=== PATIENT | female | born 1995 | race Hispanic/Latino ===

== ENCOUNTER 2024-03-23 08:56 | Inpatient (IN) | payer OTHER, MEDICAID, SELFPAY ==
[2024-03-23] VITALS (51 sets, daily range): BP systolic 95–122; BP diastolic 64–83; PULSE 98–135; RESP 12–32; TEMP 36.7–36.8; O2SAT 93–99; BMI 21.1; BMI 22.5
--- NOTE | 2024-03-23 09:33 | DI.RAD.S_ITS ---
PROCEDURE: XR CHEST 1V INDICATIONS: suspected sepsis TECHNIQUE: One view of the chest was acquired. COMPARISON: None. FINDINGS: Surgical changes and devices: None. Lungs and pleura: There is moderate left pleural effusion and left lower lobe atelectasis. No pneumothorax. Right lung is clear. Mediastinum: Mediastinal contours appear normal. Heart size is enlarged. Bones and chest wall: No suspicious bony lesions. Overlying soft tissues appear unremarkable. IMPRESSION: Moderate left pleural effusion and left lower lobe atelectasis. Underlying left lower lobe infiltrate cannot be excluded. Right lung is clear. No pneumothorax. Dictated by: Manish Cancino M.D. on 03/23/2024 at 10:11 Approved by: Manish Cancino M.D. on 03/23/2024 at 10:12
[2024-03-23] MEDS: SODIUM CHLORIDE 0.9% 1,000 ML 1000 ML IV ×2 (09:40→18:03)
--- NOTE | 2024-03-23 09:44 | EKG_ITS ---
[address] [address] Test Date: 2024-03-23 Pat Name: Zena Hawley Department: [facility] Room: Gender: Female Field Contact Person: CAMILLA : 1995 Requested By: Order Number: [id number] Reading MD: Walter Hoffman Measurements Intervals [place] Rate: 133 P: 49 IA: 114 QRS: 6 QRSD: 92 T: 38 QT: 320 QTc: 476 Interpretive Statements Sinus tachycardia Electronically Signed On 03-23-2024 17:58:55 PST by Walter Hoffman
[2024-03-23 10:03] LABS: Add Manual Diff / Slide Review NO; Basophils Absolute Auto 0 /uL (0-100); Basophils Percent Auto 0.8 % (0-2); Eosinophils Absolute Auto 100 /uL (0-450); Eosinophils Percent Auto 1.8 % (2-4); Hematocrit 34.5 % (36-46); Hemoglobin 11.2 g/dL (12.0-16.0); Lymphocytes Absolute Auto 1300 /uL (1100-4500); Lymphocytes Percent Auto 24.6 % (25-40); Mean Corpuscular HGB Conc 32.6 % (30-36); Mean Corpuscular Volume 88.7 fL (80-100); Monocytes Absolute Auto 400 /uL (0-900); Monocytes Percent Auto 7.4 % (3-14); Neutrophils Absolute Auto 3600 /uL (1500-7000); Neutrophils Percent Auto 65.4 % (50-75); Platelet Count 698 X10^3/uL (150-400); Red Blood Cell Count 3.88 X10^6/uL (4.0-5.2); Red Cell Distribution Width 15.1 % (11.6-14.8); White Blood Cell Count 5.4 X10^3/uL (4.5-11.0)
[2024-03-23 10:09] LABS: INR 1.2 (0.9-1.3); Prothrombin Time 13.7 SECONDS (9.4-12.5)
[2024-03-23 10:12] LABS: PTT Partial Thromboplastin Tim 36 SECONDS (25.1-36.5)
[2024-03-23 10:13] LABS: Alanine Aminotransferase 20 IU/L (<35); Albumin Globulin Ratio 0.9 (1.0-2.8); Alkaline Phosphatase 84 U/L (38-126); Aspartate Aminotransferase 31 IU/L (14-36); BUN Creatinine Ratio 10.7 (6-22); Bilirubin Total 0.7 mg/dL (0.2-1.3); Blood Urea Nitrogen 6 mg/dL (7-17); Calcium 9.7 mg/dL (8.4-10.2); Carbon Dioxide 26 mmol/L (22-32); Chloride 105 mmol/L (98-107); Estimated Glomerular Filt Rate > 60 mL/min (>60); Globulin 4.3 g/dL (1.7-4.1); Glucose 97 mg/dL (70-100); HEMOLYSIS 21 (0-50); Lipase 63 U/L (23-300); Potassium 3.9 mmol/L (3.4-5.1); Sodium 138 mmol/L (137-145); Total Protein 8.3 g/dL (6.3-8.2)
[2024-03-23 10:14] LABS: Lactate (Lactic Acid) 0.9 mmol/L (0.7-2.1)
--- NOTE | 2024-03-23 10:18 | ED.ABDPAIN ---
HPI - Abdominal Pain General Chief Complaint: Abdominal Pain Stated Complaint: surgery 02/11 nausea/vomitting, feels heart racing Time Seen by Provider: 03/23/24 10:07 Source: patient Mode of arrival: Ambulatory History of Present Illness HPI narrative: 28-year-old female with recent prolonged hospitalization [facility] for bowel obstruction and TPN antibiotics and multiple abscess drainage procedures, admitted there 02/11/2024, and states that she was hospitalized for 28 days, discharged, recalls having bowel obstruction left-sided, surgical excision, no cancer diagnosis, no colostomy/ostomy, apparently had splenic neck complication, development of abscess, drains that were placed then pulled, ertapenem antibiotic given during her hospital stay, PICC line was in place, antibiotic course was completed, PICC line removed for discharge. Patient seemed to be doing well the last week or so, slight residual left-sided abdominal discomfort, saw her surgeon yesterday for follow up, she was under the impression that further pain medication was to be prescribed, also was requesting antinausea medication. Last night had multiple episodes nonbloody emesis, last bowel movement unremarkable yesterday, no black or red stools. Increasing left-sided abdominal discomfort. Also recent cough, denies shortness of breath, denies chest pain. Denies frequency of urination, denies painful urination. Related Data Home Medications Medication Instructions Recorded Confirmed clonidine HCl 0.1 mg tablet 0.1 mg PO BID 03/23/24 03/23/24 Allergies Allergy/AdvReac Type Severity Reaction Status Date / Time cyclobenzaprine Allergy Verified 03/23/24 09:29 [From Flexeril] promethazine [From Phenergan] Allergy Verified 03/23/24 09:29 Review of Systems Review of Systems Narrative: See HPI Patient History Social History household members: family Smoking Status: Unknown if ever smoked Smoking Status: Unknown if ever smoked alcohol intake frequency: holidays/special occasions only Substance Use Type: does not use Exam Narrative Exam Narrative: GENERAL: Well-developed patient, in mild distress. HEAD: Atraumatic. Normocephalic. EYES: Pupils equal round and reactive. Extraocular motions intact. No scleral icterus. No injection or drainage. ENT: Nose without bleeding, purulent drainage. Throat without erythema, tonsillar hypertrophy or exudate. Airway patent. NECK: Trachea midline. Non tender CARDIOVASCULAR: Fast rate regular rhythm, no obvious murmurs or gallops or rubs. RESPIRATORY: Clear to auscultation. Breath sounds equal bilaterally. No wheezes, rales, or rhonchi. GASTROINTESTINAL: Abdomen soft nondistended, bowel tones unremarkable, Steri-Strips applied vertical low midline incision, also noted old appearing right upper quadrant and left upper quadrant abdominal linear laceration scars that per patient report were self-inflicted a long time ago. No skin erythema, redness. No guarding or rebound tenderness. EXTREMITIES: No edema or joint tenderness. BACK: Nontender without deformity or crepitance. No flank tenderness. NEURO: AOx3. Motor functions grossly nonfocal SKIN: No rash or erythema of visible areas Initial Vital Signs Initial Vital Signs: Vital Signs Temperature 98.0 F 03/23/24 09:24 Pulse Rate 122 H 03/23/24 09:24 Respiratory Rate 16 03/23/24 09:24 Blood Pressure 97/64 03/23/24 09:24 Pulse Oximetry 96 03/23/24 09:24 Oxygen Delivery Method Room Air 03/23/24 09:24 Procedures [facility] Procedure Name of Procedure: Left chest thoracentesis, diagnostic Side (if applicable): left Location: Left posterior chest, procedure site marked with X by engineering technician Time out performed: Yes Technique/Description of procedure performed: Local anesthetic after Betadine scrub, local 1% lidocaine 5 cc injected subcutaneously and then down to rib edge and then of over rib edge that was marked previously by ultrasound imaging. Injected further at that site. Thoracentesis catheter over wire then introduced, advanced to proximally 5 cc, with aspiration of yellow fluid, needle taken out, further aspiration 60 cc syringe, sent for studies. Attempted to place stopcock for gravity drainage but the stopcock did not seem to go onto the device. Further aspirated further via additional 60 cc syringes, total volume a proximally 150 cc. Postprocedure chest x-ray without pneumothorax. Tolerated well. Specimen sent for lab studies. Course Orders Ordered: ED Orders 03/23/24 10:22 CT angio chest PE protocol Stat 03/23/24 10:23 CT abdomen pelvis w con Stat 03/23/24 10:42 Urine Culture Stat Urine Microscopic Stat 03/23/24 11:33 US chest Stat 03/23/24 13:12 Respiratory Panel (Film Array) Stat 03/23/24 16:04 Body Fluid Culture Stat Cell Count w Diff Body Fluid Stat 03/23/24 16:05 Miscellaneous to [facility] Stat 03/23/24 16:10 XR chest 1V Stat Acetaminophen (Acetaminophen 325 Mg Tablet) 650 mg PO Q6H PRN PRN Reason: Fever/Mild Pain (1-3) Hydromorphone HCl (Hydromorphone 0.5 Mg Inj) 0.5 mg IV Q2H PRN PRN Reason: Pain, Severe (7-10) Sodium Chloride (Normal Saline 0.9%) 1,000 mls @ 100 mls/hr IV CONT CRISTI Naloxone HCl (Naloxone 0.4 Mg/Ml Vial) 0.2 mg IV Q2MIN PRN PRN Reason: Opiate Reversal Ondansetron HCl (Ondansetron 4 Mg Odt) 4 mg SL NOW PRN PRN Reason: Nausea And Vomiting Ondansetron HCl (Ondansetron 4 Mg/2 Ml Inj) 4 mg IV Q8HR PRN PRN Reason: Nausea And Vomiting Oxycodone HCl (Oxycodone Ir 5 Mg Tablet) 5 mg PO Q3H PRN PRN Reason: Pain, Moderate (4-6) Sodium Chloride (Sodium Chloride 0.9% Flush) 10 ml IV PRN PRN PRN Reason: Flush Sodium Chloride (Sodium Chloride 0.9% Flush) 10 ml IV BID CRISTI Discontinued Medications Azithromycin (Azithromycin 250 Mg Tablet) 500 mg PO NOW ONE Stop: 03/23/24 10:21 Last Admin: 03/23/24 11:49 Dose: Not Given Documented By: HEMA Doxycycline Hyclate (Doxycycline Hyclate 100 Mg Tablet) 100 mg PO NOW ONE Stop: 03/23/24 10:22 Last Admin: 03/23/24 10:30 Dose: 100 mg Documented By: HEMA Hydromorphone HCl (Hydromorphone 0.5 Mg Inj) 0.5 mg IV NOW ONE Stop: 03/23/24 11:11 Last Admin: 03/23/24 11:40 Dose: 0.5 mg Documented By: HEMA Hydromorphone HCl (Hydromorphone 0.5 Mg Inj) 0.5 mg IV NOW ONE Stop: 03/23/24 12:18 Last Admin: 03/23/24 12:51 Dose: 0.5 mg Documented By: HEMA Hydromorphone HCl (Hydromorphone 0.5 Mg Inj) 0.5 mg IV NOW ONE Stop: 03/23/24 15:12 Last Admin: 03/23/24 15:16 Dose: 0.5 mg Documented By: HEMA Hydromorphone HCl (Hydromorphone 0.5 Mg Inj) 0.5 mg IV NOW ONE Stop: 03/23/24 17:10 Last Admin: 03/23/24 17:16 Dose: 0.5 mg Documented By: HEMA Sodium Chloride (Normal Saline 0.9%) 1,000 mls @ 1,000 mls/hr IV BOLUS ONE Stop: 03/23/24 10:32 Last Infusion: 03/23/24 11:15 Dose: Infused Documented By: Admin: 03/23/24 09:40 Dose: 1,000 mls/hr Documented By: HEMA Ceftriaxone Sodium 1,000 mg/ (Sodium Chloride) 100 mls @ 200 mls/hr IV NOW ONE Stop: 03/23/24 10:21 Last Infusion: 03/23/24 11:44 Dose: Infused Documented By: Admin: 03/23/24 10:30 Dose: 200 mls/hr Documented By: HEMA Sodium Chloride (Normal Saline 0.9%) 1,000 mls @ 500 mls/hr IV BOLUS ONE Stop: 03/23/24 12:24 Last Infusion: 03/23/24 12:45 Dose: Infused Documented By: Admin: 03/23/24 11:09 Dose: 500 mls/hr Documented By: HEMA Sodium Chloride (Normal Saline 0.9%) 1,000 mls @ 1,000 mls/hr IV BOLUS ONE Stop: 03/23/24 18:42 Last Infusion: 03/23/24 18:44 Dose: Infused Documented By: Admin: 03/23/24 18:03 Dose: 1,000 mls/hr Documented By: HEMA Lorazepam (Lorazepam 2 Mg/Ml Inj) 1 mg IV NOW ONE Stop: 03/23/24 13:51 Last Admin: 03/23/24 16:00 Dose: 1 mg Documented By: HEMA Metoclopramide HCl (Metoclopramide 10 Mg/2 Ml Inj) 10 mg IV NOW ONE Stop: 03/23/24 14:37 Last Admin: 03/23/24 14:52 Dose: 10 mg Documented By: HEMA Ondansetron HCl (Ondansetron 4 Mg/2 Ml Inj) 4 mg IV NOW PRN PRN Reason: Nausea And Vomiting Last Admin: 03/23/24 11:08 Dose: 4 mg Documented By: HEMA Vital Signs Vital signs: Vital Signs - 8 hr 03/23/24 11:15 03/23/24 11:15 03/23/24 11:30 Pulse Rate 119 H Respiratory Rate 17 Blood Pressure 109/78 118/83 Pulse Oximetry 95 03/23/24 11:30 03/23/24 11:45 03/23/24 11:45 Pulse Rate 116 H 108 H Respiratory Rate 20 16 Blood Pressure 117/73 Pulse Oximetry 96 95 03/23/24 12:00 03/23/24 12:00 03/23/24 12:30 Pulse Rate 114 H 107 H Respiratory Rate 18 17 Blood Pressure 116/76 Pulse Oximetry 96 95 03/23/24 13:00 03/23/24 13:30 03/23/24 14:00 Pulse Rate 109 H 113 H 104 H Respiratory Rate 16 14 16 Blood Pressure Pulse Oximetry 96 95 97 03/23/24 14:30 03/23/24 15:00 03/23/24 15:01 Pulse Rate 107 H 113 H Respiratory Rate 18 16 Blood Pressure 114/79 Pulse Oximetry 95 95 03/23/24 15:01 03/23/24 15:15 03/23/24 15:30 Pulse Rate 112 H 114 H Respiratory Rate 12 21 Blood Pressure 112/70 Pulse Oximetry 95 94 03/23/24 15:30 03/23/24 15:45 03/23/24 15:57 Pulse Rate 106 H 103 H Respiratory Rate 16 17 Blood Pressure 102/64 Pulse Oximetry 95 95 03/23/24 15:57 03/23/24 16:00 03/23/24 16:00 Pulse Rate 114 H 132 H Respiratory Rate 12 24 Blood Pressure 118/76 Pulse Oximetry 96 95 03/23/24 16:05 03/23/24 16:05 03/23/24 16:10 Pulse Rate 127 H Respiratory Rate 32 H Blood Pressure 111/74 114/77 Pulse Oximetry 95 03/23/24 16:10 03/23/24 16:15 03/23/24 16:15 Pulse Rate 115 H 100 H Respiratory Rate 19 19 Blood Pressure 105/70 Pulse Oximetry 94 93 03/23/24 16:20 03/23/24 16:20 03/23/24 16:25 Pulse Rate 125 H Respiratory Rate 22 Blood Pressure 101/64 106/71 Pulse Oximetry 96 03/23/24 16:25 03/23/24 16:30 03/23/24 16:30 Pulse Rate 118 H 103 H Respiratory Rate 24 15 Blood Pressure 108/75 Pulse Oximetry 96 95 03/23/24 16:35 03/23/24 16:35 03/23/24 16:40 Pulse Rate 101 H Respiratory Rate 19 Blood Pressure 106/74 106/75 Pulse Oximetry 96 03/23/24 16:40 03/23/24 16:45 03/23/24 16:45 Pulse Rate 105 H 104 H Respiratory Rate 15 18 Blood Pressure 108/75 Pulse Oximetry 96 96 03/23/24 16:50 03/23/24 16:50 03/23/24 16:55 Pulse Rate 106 H 105 H Respiratory Rate 18 18 Blood Pressure 106/78 Pulse Oximetry 96 96 03/23/24 16:55 03/23/24 17:00 03/23/24 17:00 Pulse Rate 105 H Respiratory Rate 18 Blood Pressure 108/71 110/74 Pulse Oximetry 96 03/23/24 17:05 03/23/24 17:05 03/23/24 17:10 Pulse Rate 121 H 110 H Respiratory Rate 16 17 Blood Pressure 105/73 Pulse Oximetry 95 95 03/23/24 17:10 03/23/24 17:15 03/23/24 17:15 Pulse Rate 111 H Respiratory Rate 24 Blood Pressure 109/79 97/71 Pulse Oximetry 96 03/23/24 17:20 03/23/24 17:20 03/23/24 17:25 Pulse Rate 108 H 116 H Respiratory Rate 17 16 Blood Pressure 107/73 Pulse Oximetry 96 94 03/23/24 17:25 03/23/24 17:30 03/23/24 17:30 Pulse Rate 111 H Respiratory Rate 16 Blood Pressure 108/70 110/67 Pulse Oximetry 95 03/23/24 17:35 03/23/24 17:35 03/23/24 17:40 Pulse Rate 112 H 121 H Respiratory Rate 17 12 Blood Pressure 107/70 Pulse Oximetry 95 95 03/23/24 17:40 03/23/24 17:45 03/23/24 17:46 Pulse Rate 118 H Respiratory Rate 16 Blood Pressure 97/82 112/83 Pulse Oximetry 96 03/23/24 17:46 03/23/24 17:50 03/23/24 17:50 Pulse Rate 119 H 119 H Respiratory Rate 12 14 Blood Pressure 114/83 Pulse Oximetry 96 96 03/23/24 17:55 03/23/24 17:55 Pulse Rate 109 H Respiratory Rate 17 Blood Pressure 114/79 Pulse Oximetry 99 MDM - Abdominal Pain Lab Data Attestation: I reviewed the patient's lab results. Lab results narrative: White blood cell count 5400, hemoglobin 11.2, platelet count 416168. Basic metabolic panel unremarkable, normal electrolytes, normal renal function, glucose 97. Normal liver functions. Normal lipase. Lactate normal, prolactin normal. Urine dip negative. Urine test negative. Respiratory panel negative. 03/23/24 09:46 03/23/24 09:46 Labs: Lab Results 03/23/24 03/23/24 03/23/24 Range/Units 09:46 10:42 13:12 WBC 5.4 (4.5-11.0) X10^3/uL RBC 3.88 L (4.0-5.2) X10^6/uL Hgb 11.2 L (12.0-16.0) g/dL Hct 34.5 L (36-46) % MCV 88.7 (80-100) fL MCH 29.0 (26-34) PG MCHC 32.6 (30-36) % RDW 15.1 H (11.6-14.8) % Plt Count 698 H (150-400) X10^3/uL Neut % (Auto) 65.4 (50-75) % Lymph % (Auto) 24.6 L (25-40) % [place] % (Auto) 7.4 (3-14) % Eos % (Auto) 1.8 L (2-4) % Baso % (Auto) 0.8 (0-2) % Neut # (Auto) 3600 (8705-6718) /uL Lymph # (Auto) 1300 (0503-7659) /uL [place] # (Auto) 400 (0-900) /uL Eos # (Auto) 100 (0-450) /uL Baso # (Auto) 0 (0-100) /uL PT 13.7 H (9.4-12.5) SECONDS INR 1.2 (0.9-1.3) APTT 36 (25.1-36.5) SECONDS Sodium 138 (137-145) mmol/L Potassium 3.9 (3.4-5.1) mmol/L Chloride 105 (98-107) mmol/L Carbon Dioxide 26 (22-32) mmol/L BUN 6 L (7-17) mg/dL Creatinine 0.56 (0.52-1.04) mg/dL Estimated GFR > 60 (>60) mL/min BUN/Creatinine Ratio 10.7 (6-22) Glucose 97 (70-100) mg/dL Lactate 0.9 (0.7-2.1) mmol/L Calcium 9.7 (8.4-10.2) mg/dL Total Bilirubin 0.7 (0.2-1.3) mg/dL AST 31 (14-36) IU/L ALT 20 (<35) IU/L Alkaline Phosphatase 84 (38-126) U/L Total Protein 8.3 H (6.3-8.2) g/dL Albumin 4.0 (3.5-5.0) g/dL Globulin 4.3 H (1.7-4.1) g/dL Albumin/Globulin Ratio 0.9 L (1.0-2.8) Lipase 63 (23-300) U/L Procalcitonin < 0.030 (<0.5) ng/mL Urine RBC None seen (0-5/HPF) Urine WBC 0-1/hpf (0-5/HPF) Ur Squamous Epith Cells 1-5 /hpf (0-5/HPF) Ur Transition Epith Cell 0-1/hpf (0-5/HPF) Amorphous Sediment 2+ Urine Bacteria Few (2-10) H (None) Hyaline Casts 10-30/lpf (None) Granular Casts 1-5/lpf (None) Ur Culture Indicated? Machine Made Shoe Unit Worker Vol Urine Centrifuged 10ml (spun) Fluid Color Fluid Appearance Fluid RBC /uL Fld Tot Nucleated Cell /uL Fluid Neutrophils % % Fluid Lymphocytes % % Fluid Eosinophils % % Fluid Basophils % % Fluid Meso/Macro/[place] % % Body Fluid Clot Chlamy pneumoniae PCR Not detected (Not Detect) Adenovirus (PCR) Not detected (Not Detect) B. pertussis DNA (PCR) Not detected (Not Detect) B.parapertussis DNA PCR Not detected (Not Detecte) Coronavirus OC43 (PCR) Not detected (Not Detect) Coronavirus HKU1 (PCR) Not detected (Not Detect) Coronavirus 229E (PCR) Not detected (Not Detect) SARS-CoV-2 (PCR) Not detected (Not Detecte) Coronavirus NL63 (PCR) Not detected (Not Detect) Human Metapneumovir PCR Not detected (Not Detect) Influenza Type A (PCR) Not detected (Not Detect) Influenza Type B (PCR) Not detected (Not Detect) M. pneumoniae (PCR) Not detected (Not Detect) Parainfluenza 1 (PCR) Not detected (Not Detect) Parainfluenza 2 (PCR) Not detected (Not Detect) Parainfluenza 3 (PCR) Not detected (Not Detect) Parainfluenza 4 (PCR) Not detected (Not Detect) RSV (PCR) Not detected (Not Detect) Entero/Rhino (PCR) Not detected (Not Detect) 03/23/24 Range/Units 16:04 WBC (4.5-11.0) X10^3/uL RBC (4.0-5.2) X10^6/uL Hgb (12.0-16.0) g/dL Hct (36-46) % MCV (80-100) fL MCH (26-34) PG MCHC (30-36) % RDW (11.6-14.8) % Plt Count (150-400) X10^3/uL Neut % (Auto) (50-75) % Lymph % (Auto) (25-40) % [place] % (Auto) (3-14) % Eos % (Auto) (2-4) % Baso % (Auto) (0-2) % Neut # (Auto) (6453-3564) /uL Lymph # (Auto) (4370-1234) /uL [place] # (Auto) (0-900) /uL Eos # (Auto) (0-450) /uL Baso # (Auto) (0-100) /uL PT (9.4-12.5) SECONDS INR (0.9-1.3) APTT (25.1-36.5) SECONDS Sodium (137-145) mmol/L Potassium (3.4-5.1) mmol/L Chloride (98-107) mmol/L Carbon Dioxide (22-32) mmol/L BUN (7-17) mg/dL Creatinine (0.52-1.04) mg/dL Estimated GFR (>60) mL/min BUN/Creatinine Ratio (6-22) Glucose (70-100) mg/dL Lactate (0.7-2.1) mmol/L Calcium (8.4-10.2) mg/dL Total Bilirubin (0.2-1.3) mg/dL AST (14-36) IU/L ALT (<35) IU/L Alkaline Phosphatase (38-126) U/L Total Protein (6.3-8.2) g/dL Albumin (3.5-5.0) g/dL Globulin (1.7-4.1) g/dL Albumin/Globulin Ratio (1.0-2.8) Lipase (23-300) U/L Procalcitonin (<0.5) ng/mL Urine RBC (0-5/HPF) Urine WBC (0-5/HPF) Ur Squamous Epith Cells (0-5/HPF) Ur Transition Epith Cell (0-5/HPF) Amorphous Sediment Urine Bacteria (None) Hyaline Casts (None) Granular Casts (None) Ur Culture Indicated? Vol Urine Centrifuged Fluid Color Yellow Fluid Appearance Clear Fluid RBC 2522 /uL Fld Tot Nucleated Cell 1535 /uL Fluid Neutrophils % 24 % Fluid Lymphocytes % 56 % Fluid Eosinophils % 2 % Fluid Basophils % 1 % Fluid Meso/Macro/[place] % 17 % Body Fluid Clot No clots present Chlamy pneumoniae PCR (Not Detect) Adenovirus (PCR) (Not Detect) B. pertussis DNA (PCR) (Not Detect) B.parapertussis DNA PCR (Not Detecte) Coronavirus OC43 (PCR) (Not Detect) Coronavirus HKU1 (PCR) (Not Detect) Coronavirus 229E (PCR) (Not Detect) SARS-CoV-2 (PCR) (Not Detecte) Coronavirus NL63 (PCR) (Not Detect) Human Metapneumovir PCR (Not Detect) Influenza Type A (PCR) (Not Detect) Influenza Type B (PCR) (Not Detect) M. pneumoniae (PCR) (Not Detect) Parainfluenza 1 (PCR) (Not Detect) Parainfluenza 2 (PCR) (Not Detect) Parainfluenza 3 (PCR) (Not Detect) Parainfluenza 4 (PCR) (Not Detect) RSV (PCR) (Not Detect) Entero/Rhino (PCR) (Not Detect) Point of care testing: Point of Care Testing Test Results Negative Glucose POC 79 Urine Dip Bedside Urine Glucose Negative Bedside Urine Bilirubin - Negative Bedside Urine Ketone +/- 5 Urine Specific [place] 1.005 Bedside Urine Occult Blood - Negative Bedside Urine pH 8.0 Bedside Urine Protein - Negative Bedside Urine Urobilinogen - Negative Bedside Urine Nitrite - Negative Bedside Urine Leukocytes +/- 15 Esterase Imaging Data Chest x-ray: Radiologist's Impression: [address] [address] XRay Report Signed Patient: Zena Hawley MR#: [id number] : 1995 Acct:[id number] Age/Sex: 28 / F Date of Service: 03/23/24 Loc: ED Accession Number: [id number] Procedure: XR chest 1V Ordering Provider: Kwadwo Acosta MD PROCEDURE: XR CHEST 1V INDICATIONS: suspected sepsis TECHNIQUE: One view of the chest was acquired. COMPARISON: None. FINDINGS: Surgical changes and devices: None. Lungs and pleura: There is moderate left pleural effusion and left lower lobe atelectasis. No pneumothorax. Right lung is clear. Mediastinum: Mediastinal contours appear normal. Heart size is enlarged. Bones and chest wall: No suspicious bony lesions. Overlying soft tissues appear unremarkable. IMPRESSION: Moderate left pleural effusion and left lower lobe atelectasis. Underlying left lower lobe infiltrate cannot be excluded. Right lung is clear. No pneumothorax. Dictated by: Manish Cancino M.D. on 03/23/2024 at 10:11 Approved by: Manish Cancino M.D. on 03/23/2024 at 10:12 CT angiogram chest: Radiologist's Impression: [address] [address] [address] Scan Report Signed Patient: Zena Hawley MR#: [id number] : 1995 Acct:[id number] Age/Sex: 28 / F Date of Service: 03/23/24 Loc: ED Accession Number: [id number] Procedure: CT angio chest PE protocol Ordering Provider: Kwadwo Acosta MD PROCEDURE: CT ANGIO CHEST PE PROTOCOL INDICATIONS: left chest effusion/infilt, recent abd surgery TECHNIQUE: After the administration of intravenous contrast, 2 mm thick sections acquired from the pulmonary apices to the posterior costophrenic angles. 3-dimensional maximum intensity projection (MIP) coronal and sagittal reformats were then acquired through the thorax. For radiation dose reduction, the following was used: automated exposure control, adjustment of mA and/or kV according to patient size. COMPARISON: None. FINDINGS: Image quality: Diagnostic. Pulmonary arteries: Pulmonary arteries are normal in size, and demonstrate no intraluminal filling defects to suggest central pulmonary embolism. Lower Neck: No enlarged lymph nodes. Thyroid: No thyroid nodules which require sonographic follow up, per consensus guidelines. Axillae: No enlarged lymph nodes. Chest Wall: Unremarkable. Bones: No aggressive appearing bony lesions. Lungs and Pleura: There is moderate to large left pleural effusion with near complete E atelectasis of left lower lobe and atelectasis involving posterior aspect of left lingular segment. No pneumothorax. No right-sided airspace opacities. 6 x 3 mm oval nodule is noted in posterior lateral aspect of right lower lobe series 8, image 131. Central and peripheral airways are patent. Heart: Heart size is normal. No pericardial effusion. Thoracic Vessels: No aortic aneurysm. Mediastinum and Vanessa: No enlarged lymph nodes. Esophagus: No wall thickening. No hiatal hernia. Upper Abdomen: Visualized upper abdomen solid organs and bowel loops appear normal. IMPRESSION: 1. No pulmonary embolus. No thoracic aortic aneurysm or dissection. 2. Moderate to large left pleural effusion with near complete atelectasis of left lower lobe and segmental atelectasis in posterior aspect of left lingular segment. No pneumothorax. Airway is patent. Incidentally noted of 6 x 3 mm oval nodule in right lower lobe. Follow-up CT chest in 6 months is recommended for evaluation of stability. 3. No mediastinal or hilar lymphadenopathy by size criteria. Dictated by: Manish Cancino M.D. on 03/23/2024 at 11:07 Approved by: Manish Cancino M.D. on 03/23/2024 at 11:17 CT scan - abdomen/pelvis: Radiologist's Impression: [address] [address] [address] Scan Report Signed Patient: Zena Hawley MR#: [id number] : 1995 Acct:[id number] Age/Sex: 28 / F Date of Service: 03/23/24 Loc: ED Accession Number: [id number] Procedure: CT abdomen pelvis w con Ordering Provider: Kwadwo Acosta MD PROCEDURE: CT ABDOMEN PELVIS W CON INDICATIONS: abd pain, recent abdom surgery TECHNIQUE: After the administration of intravenous contrast, axial sections acquired from the lung bases to the pubic symphysis. Coronal and sagittal reformats were performed. For radiation dose reduction, the following was used: automated exposure control, adjustment of mA and/or kV according to patient size. COMPARISON: None. FINDINGS: Image quality: Diagnostic. Lower Chest: Please refer to CT angiogram of chest report from the same day. ABDOMEN: Liver: No solid mass. Gallbladder: No radiopaque gallstones or wall thickening. Biliary ducts: No biliary dilation. Pancreas: No ductal dilation. Spleen: Size is within normal limits. Adrenal Glands: No adrenal nodules. Kidneys and Ureters: No hydronephrosis. No solid mass. No complex renal cystic lesion which requires follow up. Stomach and Bowel: Postsurgical changes are noted in right abdomen from partial colectomy. Surgical anastomosis appears intact. There is no bowel obstruction . No gastric or small bowel wall thickening. Fecal stasis throughout the colon is seen. Questionable mild sigmoid colon wall thickening is seen without significant pericolonic fat stranding. No abscess collection. Peritoneum: No abnormal intraperitoneal fluid. No free air. Ventral Wall: No significant ventral hernia. Abdominal Nodes: No retroperitoneal or mesenteric adenopathy by size criteria. Vessels: Aorta and inferior vena cava are normal in size. PELVIS: Pelvic Organs: Unremarkable. Bladder: No bladder wall thickening, accounting for underdistention. Pelvic Nodes: No enlarged lymph nodes. Miscellaneous: No inguinal hernias are seen. Bones: No aggressive osseous abnormality. IMPRESSION: 1. Postsurgical changes in right lower quadrant from prior partial bowel resection. Surgical anastomosis is intact. Mild constipation. Questionable sigmoid colon wall thickening which may be due to under distension. Low-grade sigmoid colitis cannot be excluded. No abscess collection. No peritoneal free fluid or free air. 2. Large left pleural effusion better evaluated on CT angiogram of chest study from the same day. Dictated by: Manish Cancino M.D. on 03/23/2024 at 11:18 Approved by: Manish Cancino M.D. on 03/23/2024 at 11:21 Ultrasound thorax: Radiologist's Impression: [address] [address] Ultrasound Report Signed Patient: Zena Hawley MR#: [id number] : 1995 Acct:[id number] Age/Sex: 28 / F Date of Service: 03/23/24 Loc: ED Accession Number: [id number] Procedure: US chest Ordering Provider: Kwadwo Acosta MD PROCEDURE:US CHEST COMPARISON:None. INDICATIONS:left pleural effusion large, recetn [facility] FINDINGS:Moderate left pleural effusion is seen with left posterior chest marked for potential thoracentesis to be performed by ordering physician. IMPRESSION: Moderate left-sided pleural effusion. Posterior left chest was marked for potential thoracentesis to be performed by ordering physician. Dictated by: Manish Cancino M.D. on 03/23/2024 at 12:21 Approved by: Manish Cancino M.D. on 03/23/2024 at 12:22 ECG Data Attestation: I personally reviewed and interpreted this ECG as follows: Interpretation: Sinus tachycardia with rate 133, no obvious ST segment elevation or depression changes. AR 114, QRS 92, QTC 476. [facility] Narrative Medical decision making narrative: 28-year-old female with recent complicated hospitalization mid-January 2024 through mid February 2024 [facility], reports diagnosis bowel obstruction, apparently no cancer, portion was removed and reanastomosed, no colostomy, complicated by intra-abdominal abscess, drainage tubes placed then removed, splenic neck laceration reported, PICC line antibiotics, discharged home mid February. Now with increasing left-sided abdominal pain, saw her surgeon yesterday with planned for refill of her pain medication and requests for antinausea medication. Multiple episodes of nausea and vomiting last night. Afebrile on triage, sirs screen negative, sinus tachycardia noted in context the pain. Labs pending. Patient request pain medications, IV fluids, IV Dilaudid/Zofran. Keep NPO for now. Screening chest x-ray shows left lower lobe infiltrate and/or fluid collection, see radiology report. Blood cultures requested. IV ceftriaxone, oral doxycycline. White blood cell count not elevated, lactate normal, prolactin normal, hCG urine negative. Renal function adequate. CT angio chest, with IV only CT abdomen and pelvis imaging ordered. Results pending at this time. CT abdomen shows no intra-abdominal abscess, no obstruction changes, slight bowel thickening mentioned without inflammatory changes, possible underdistention. See radiology report. CT angiogram chest shows moderate/large left pleural effusion, no mention of infiltrate within, no thickening/empyema changes described. No pulmonary embolus. See radiology report. Consider diagnostic tap left chest fluid collection, on her symptomatic side, if related to her pain symptoms. IR guided referral requested, apparently they are not available here today. Discussed outpatient order, versus doing this now by me here. We discussed risks of pneumothorax, by IR versus non IR provider, she would like to proceed with diagnostic thoracentesis. Ultrasound requested to marked spot. Pleural fluid studies ordered. Patient had considerable pain and anxiety, multiple doses IV Dilaudid than IV Versed. Consented. See procedure note, clear yellow appearing fluid aspirated, total volume 150 cc, sent for studies: Cell count/differential, Gram stain, culture, LDH, cytology. Postprocedure chest x-ray ordered. Fluid counts with nucleated cells, predominantly lymphocytic, no atypical cells. LDH pleural fluid send out pending. Gram stain fluid pending for the morning, fluid culture requested. Chest x-ray negative for postprocedure pneumothorax, left-sided pleural effusion again seen. 1750, case discussed with hospitalist Dr. Hoffman, accepts patient for admission to observation Critical Care Time Critical Care Time Critical Care Time: Yes Total Critical Care Time: 35 Attestation: The high probability of a clinically significant, sudden or life threatening deterioration of the [cardiopulmonary, abdominopelvic,] system(s) required my full and direct attention, intervention and personal management. The aggregate critical care time was [35] minutes. This time is in addition to time spent performing reported procedures but includes the following: [x] Data Review and interpretation [x] Patient assessment and monitoring of vital signs [x] Documentation [x] Medication orders and management Discharge Plan Departure Patient Disposition: Admitted as Observation Clinical Impression: Tachycardia, Pleural effusion on left, Abdominal pain Admit Date/Time: 03/23/24 17:59 Admit Provider: Walter Hoffman
--- NOTE | 2024-03-23 10:22 | DI.CT.S_ITS ---
PROCEDURE: CT ANGIO CHEST PE PROTOCOL INDICATIONS: left chest effusion/infilt, recent abd surgery TECHNIQUE: After the administration of intravenous contrast, 2 mm thick sections acquired from the pulmonary apices to the posterior costophrenic angles. 3-dimensional maximum intensity projection (MIP) coronal and sagittal reformats were then acquired through the thorax. For radiation dose reduction, the following was used: automated exposure control, adjustment of mA and/or kV according to patient size. COMPARISON: None. FINDINGS: Image quality: Diagnostic. Pulmonary arteries: Pulmonary arteries are normal in size, and demonstrate no intraluminal filling defects to suggest central pulmonary embolism. Lower Neck: No enlarged lymph nodes. Thyroid: No thyroid nodules which require sonographic follow up, per consensus guidelines. Axillae: No enlarged lymph nodes. Chest Wall: Unremarkable. Bones: No aggressive appearing bony lesions. Lungs and Pleura: There is moderate to large left pleural effusion with near complete E atelectasis of left lower lobe and atelectasis involving posterior aspect of left lingular segment. No pneumothorax. No right-sided airspace opacities. 6 x 3 mm oval nodule is noted in posterior lateral aspect of right lower lobe series 8, image 131. Central and peripheral airways are patent. Heart: Heart size is normal. No pericardial effusion. Thoracic Vessels: No aortic aneurysm. Mediastinum and Vanessa: No enlarged lymph nodes. Esophagus: No wall thickening. No hiatal hernia. Upper Abdomen: Visualized upper abdomen solid organs and bowel loops appear normal. IMPRESSION: 1. No pulmonary embolus. No thoracic aortic aneurysm or dissection. 2. Moderate to large left pleural effusion with near complete atelectasis of left lower lobe and segmental atelectasis in posterior aspect of left lingular segment. No pneumothorax. Airway is patent. Incidentally noted of 6 x 3 mm oval nodule in right lower lobe. Follow-up CT chest in 6 months is recommended for evaluation of stability. 3. No mediastinal or hilar lymphadenopathy by size criteria. Dictated by: Manish Cancino M.D. on 03/23/2024 at 11:07 Approved by: Manish Cancino M.D. on 03/23/2024 at 11:17
--- NOTE | 2024-03-23 10:23 | DI.CT.S_ITS ---
PROCEDURE: CT ABDOMEN PELVIS W CON INDICATIONS: abd pain, recent abdom surgery TECHNIQUE: After the administration of intravenous contrast, axial sections acquired from the lung bases to the pubic symphysis. Coronal and sagittal reformats were performed. For radiation dose reduction, the following was used: automated exposure control, adjustment of mA and/or kV according to patient size. COMPARISON: None. FINDINGS: Image quality: Diagnostic. Lower Chest: Please refer to CT angiogram of chest report from the same day. ABDOMEN: Liver: No solid mass. Gallbladder: No radiopaque gallstones or wall thickening. Biliary ducts: No biliary dilation. Pancreas: No ductal dilation. Spleen: Size is within normal limits. Adrenal Glands: No adrenal nodules. Kidneys and Ureters: No hydronephrosis. No solid mass. No complex renal cystic lesion which requires follow up. Stomach and Bowel: Postsurgical changes are noted in right abdomen from partial colectomy. Surgical anastomosis appears intact. There is no bowel obstruction . No gastric or small bowel wall thickening. Fecal stasis throughout the colon is seen. Questionable mild sigmoid colon wall thickening is seen without significant pericolonic fat stranding. No abscess collection. Peritoneum: No abnormal intraperitoneal fluid. No free air. Ventral Wall: No significant ventral hernia. Abdominal Nodes: No retroperitoneal or mesenteric adenopathy by size criteria. Vessels: Aorta and inferior vena cava are normal in size. PELVIS: Pelvic Organs: Unremarkable. Bladder: No bladder wall thickening, accounting for underdistention. Pelvic Nodes: No enlarged lymph nodes. Miscellaneous: No inguinal hernias are seen. Bones: No aggressive osseous abnormality. IMPRESSION: 1. Postsurgical changes in right lower quadrant from prior partial bowel resection. Surgical anastomosis is intact. Mild constipation. Questionable sigmoid colon wall thickening which may be due to under distension. Low-grade sigmoid colitis cannot be excluded. No abscess collection. No peritoneal free fluid or free air. 2. Large left pleural effusion better evaluated on CT angiogram of chest study from the same day. Dictated by: Manish Cancino M.D. on 03/23/2024 at 11:18 Approved by: Manish Cancino M.D. on 03/23/2024 at 11:21
[2024-03-23 10:30] LABS: Procalcitonin < 0.030 ng/mL (<0.5)
[2024-03-23] MEDS: cefTRIAXone 1,000 MG in SODIUM CHLORIDE 0.9% 100 ML 200 MG IV (10:30)
[2024-03-23] MEDS: DOXYCYCLINE HYCLATE 100 MG TABLET PO (10:30)
[2024-03-23 11:08] LABS: Urine Volume 10mL (spun)
[2024-03-23] MEDS: ONDANSETRON 4 MG/2 ML INJ IV (11:08)
[2024-03-23 11:09] LABS: Amorphous Sediment Urine 2+; Bacteria Urine Few (2-10); Granular Casts Urine 1-5/LPF; Hyaline Casts Urine 10-30/LPF; RBC Urine None Seen (0-5/HPF); Squamous Epithelial Cell Urine 1-5 /HPF (0-5/HPF); Transitional Epi Cells Urine 0-1/HPF (0-5/HPF); WBC Urine 0-1/HPF (0-5/HPF)
[2024-03-23] MEDS: SODIUM CHLORIDE 0.9% 1,000 ML 500 ML IV (11:09)
--- NOTE | 2024-03-23 11:33 | DI.US.S_ITS ---
PROCEDURE: US CHEST COMPARISON: None. INDICATIONS: left pleural effusion large, recetn abd surgeries Mcbrides FINDINGS: Moderate left pleural effusion is seen with left posterior chest marked for potential thoracentesis to be performed by ordering physician. IMPRESSION: Moderate left-sided pleural effusion. Posterior left chest was marked for potential thoracentesis to be performed by ordering physician. Dictated by: Manish Cancino M.D. on 03/23/2024 at 12:21 Approved by: Manish Cancino M.D. on 03/23/2024 at 12:22
[2024-03-23] MEDS: HYDROMORPHONE 0.5 MG INJ IV ×5 (11:40→19:06)
[2024-03-23 14:09] LABS: Adenovirus Not Detected (Not Detect); B. parapertussis Not Detected (Not Detecte); Bordetella pertussis Not Detected (Not Detect); Chlamydophila pneumoniae Not Detected (Not Detect); Coronavirus 229E Not Detected (Not Detect); Coronavirus HKU1 Not Detected (Not Detect); Coronavirus NL 63 Not Detected (Not Detect); Coronavirus OC43 Not Detected (Not Detect); Human Metapneumovirus Not Detected (Not Detect); Human Rhinovirus/Enterovirus Not Detected (Not Detect); Influenza A Not Detected (Not Detect); Influenza B Not Detected (Not Detect); Mycoplasma pneumoniae Not Detected (Not Detect); Parainfluenza Virus 1 Not Detected (Not Detect); Parainfluenza Virus 2 Not Detected (Not Detect); Parainfluenza Virus 3 Not Detected (Not Detect); Parainfluenza Virus 4 Not Detected (Not Detect); Respiratory Syncytial Virus Not Detected (Not Detect); SARS- CoV-2 Not Detected (Not Detecte)
[2024-03-23] MEDS: METOCLOPRAMIDE 10 MG/2 ML INJ IV (14:52)
[2024-03-23] MEDS: LORazepam 2 MG/ML INJ 1 MG IV (16:00)
--- NOTE | 2024-03-23 16:02 | PC.NURSE ---
Thoracentesis L-side, area marked by DI, consent signed, time out at 1600, local administered @ 1601, physician, primary RN and secondary RN present for procedure. Pt sitting upright and leaning forward on padded table. Fluid removed = 190ML @ 1605. Band-aid applied to insertion site. Sample walked down to lab by lost charge card clerk. Pt tolerated procedure well. BP 111/74, HR 113, 94% RA. Pt AOx4, GCS 15
--- NOTE | 2024-03-23 16:10 | DI.RAD.S_ITS ---
PROCEDURE: XR CHEST 1V INDICATIONS: Status post left thoracentesis TECHNIQUE: One view of the chest was acquired. COMPARISON: [facility], CR, XR CHEST 1V, 03/23/2024, 9:50. FINDINGS: Surgical changes and devices: None. Lungs and pleura: Persistent moderate left pleural effusion. No gross pneumothorax. Left lower lobe atelectasis is again seen. Right lung is clear. Mediastinum: Mediastinal contours appear normal. Heart size is normal. Bones and chest wall: No suspicious bony lesions. Overlying soft tissues appear unremarkable. IMPRESSION: No pneumothorax post left thoracentesis. Persistent moderate left pleural effusion with left lower lobe atelectasis. Dictated by: Manish Cancino M.D. on 03/23/2024 at 16:31 Approved by: Manish Cancino M.D. on 03/23/2024 at 16:32
[2024-03-23 16:34] LABS: Body Fluid Red Blood Cells 2522 /uL; Body Fluid Tot Nucleated Cells 1535 /uL
--- NOTE | 2024-03-23 16:38 | PC.NURSE ---
1% lido, included in the thoracentesis kit, administered by provider prior to procedure.
[2024-03-23 17:19] LABS: Basophils Body Fluid 1 %; Body Fluid Appearance CLEAR; Body Fluid Clotted? NO CLOTS PRESENT; Body Fluid Color YELLOW; Eosinophils Body Fluid 2 %; Lymphocytes Body Fluid 56 %; MESO/MACRO/MONO Body Fluid 17 %; Neutrophils Body Fluid 24 %
--- NOTE | 2024-03-23 18:25 | P.HP_ITS ---
History of Present Illness History of Present Illness Date Patient Seen: 03/23/24 Time Patient Seen: 18:25 Chief complaint: surgery 02/11 nausea/vomitting, feels heart racing Narrative: From ED doctor: 28-year-old female with recent prolonged hospitalization coop feel for bowel obstruction and TPN antibiotics and multiple abscess drainage procedures, admitted there 02/11/2024, and states that she was hospitalized for 28 days, discharged, recalls having bowel obstruction left-sided, surgical excision, no cancer diagnosis, no colostomy/ostomy, apparently had splenic neck complication, development of abscess, drains that were placed then pulled, ertapenem antibiotic given during her hospital stay, PICC line was in place, antibiotic course was completed, PICC line removed for discharge. Patient seemed to be doing well the last week or so, slight residual left-sided abdominal discomfort, saw her surgeon yesterday for follow up, she was under the impression that further pain medication was to be prescribed, also was requesting antinausea medication. Last night had multiple episodes nonbloody emesis, last bowel movement unremarkable yesterday, no black or red stools. Increasing left-sided abdominal discomfort. Also recent cough, denies shortness of breath, denies chest pain. Denies frequency of urination, denies painful urination. Additional information: ED course: The patient underwent a diagnostic thoracentesis with a but 150 mL of clear fluid removed and sent for studies. The patient was admitted with fever, or leukocytosis. Her pain was not pleuritic. There was no evidence of pneumonia or abdominal abscess on her CT scan of the chest and abdomen. She was in the hospital and would be [place] 5 [place] from the [facility] . She was diagnosed with a bowel obstruction and had a laparotomy with a limited bowel resection complicated by multiple abdominal abscesses which required percutaneous drains, extensive antibiotics, and TPN. She has been home for a little over a week has had persistent left-sided lower and upper quadrant abdomen pain, nausea, and anorexia. She denies any overt diarrhea, or rectal bleeding. She also denies any drainage from her incisional wounds. Her breathing has been fine, no dyspnea, orthopnea. No cough. Her fluid from thoracentesis was clear. [facility] Social History household members: family Smoking Status: Unknown if ever smoked Meds Home Medications and Allergies Home Medications Medication Instructions Recorded Confirmed Type clonidine HCl 0.1 mg tablet 0.1 mg PO BID 03/23/24 03/23/24 History Allergies Allergy/AdvReac Type Severity Reaction Status Date / Time cyclobenzaprine Allergy Verified 03/23/24 09:29 [From Flexeril] promethazine [From Phenergan] Allergy Verified 03/23/24 09:29 Review of Systems Review of Systems Narrative: All else reviewed and otherwise unremarkable except as noted in the history and physical. Exam Vital Signs (past 8 hours): - 03/23/24 10:30 03/23/24 10:52 03/23/24 10:52 Pulse Rate 123 H 106 H Respiratory Rate 21 20 Blood Pressure 104/72 Pulse Oximetry 94 96 03/23/24 11:00 03/23/24 11:00 03/23/24 11:15 Pulse Rate 117 H 119 H Respiratory Rate 17 17 Blood Pressure 112/74 Pulse Oximetry 96 95 03/23/24 11:15 03/23/24 11:30 03/23/24 11:30 Pulse Rate 116 H Respiratory Rate 20 Blood Pressure 109/78 118/83 Pulse Oximetry 96 03/23/24 11:45 03/23/24 11:45 03/23/24 12:00 Pulse Rate 108 H Respiratory Rate 16 Blood Pressure 117/73 116/76 Pulse Oximetry 95 03/23/24 12:00 03/23/24 12:30 03/23/24 13:00 Pulse Rate 114 H 107 H 109 H Respiratory Rate 18 17 16 Blood Pressure Pulse Oximetry 96 95 96 03/23/24 13:30 03/23/24 14:00 03/23/24 14:30 Pulse Rate 113 H 104 H 107 H Respiratory Rate 14 16 18 Blood Pressure Pulse Oximetry 95 97 95 03/23/24 15:00 03/23/24 15:01 03/23/24 15:01 Pulse Rate 113 H 112 H Respiratory Rate 16 12 Blood Pressure 114/79 Pulse Oximetry 95 95 03/23/24 15:15 03/23/24 15:30 03/23/24 15:30 Pulse Rate 114 H 106 H Respiratory Rate 21 16 Blood Pressure 112/70 Pulse Oximetry 94 95 03/23/24 15:45 03/23/24 15:57 03/23/24 15:57 Pulse Rate 103 H 114 H Respiratory Rate 17 12 Blood Pressure 102/64 Pulse Oximetry 95 96 03/23/24 16:00 03/23/24 16:00 03/23/24 16:05 Pulse Rate 132 H Respiratory Rate 24 Blood Pressure 118/76 111/74 Pulse Oximetry 95 03/23/24 16:05 03/23/24 16:10 03/23/24 16:10 Pulse Rate 127 H 115 H Respiratory Rate 32 H 19 Blood Pressure 114/77 Pulse Oximetry 95 94 03/23/24 16:15 03/23/24 16:15 03/23/24 16:20 Pulse Rate 100 H Respiratory Rate 19 Blood Pressure 105/70 101/64 Pulse Oximetry 93 03/23/24 16:20 03/23/24 16:25 03/23/24 16:25 Pulse Rate 125 H 118 H Respiratory Rate 22 24 Blood Pressure 106/71 Pulse Oximetry 96 96 03/23/24 16:30 03/23/24 16:30 03/23/24 16:35 Pulse Rate 103 H 101 H Respiratory Rate 15 19 Blood Pressure 108/75 Pulse Oximetry 95 96 03/23/24 16:35 03/23/24 16:40 03/23/24 16:40 Pulse Rate 105 H Respiratory Rate 15 Blood Pressure 106/74 106/75 Pulse Oximetry 96 03/23/24 16:45 03/23/24 16:45 03/23/24 16:50 Pulse Rate 104 H 106 H Respiratory Rate 18 18 Blood Pressure 108/75 Pulse Oximetry 96 96 03/23/24 16:50 03/23/24 16:55 03/23/24 16:55 Pulse Rate 105 H Respiratory Rate 18 Blood Pressure 106/78 108/71 Pulse Oximetry 96 03/23/24 17:00 03/23/24 17:00 03/23/24 17:05 Pulse Rate 105 H 121 H Respiratory Rate 18 16 Blood Pressure 110/74 Pulse Oximetry 96 95 03/23/24 17:05 03/23/24 17:10 03/23/24 17:10 Pulse Rate 110 H Respiratory Rate 17 Blood Pressure 105/73 109/79 Pulse Oximetry 95 03/23/24 17:15 03/23/24 17:15 03/23/24 17:20 Pulse Rate 111 H Respiratory Rate 24 Blood Pressure 97/71 107/73 Pulse Oximetry 96 03/23/24 17:20 03/23/24 17:25 03/23/24 17:25 Pulse Rate 108 H 116 H Respiratory Rate 17 16 Blood Pressure 108/70 Pulse Oximetry 96 94 03/23/24 17:30 03/23/24 17:30 03/23/24 17:35 Pulse Rate 111 H Respiratory Rate 16 Blood Pressure 110/67 107/70 Pulse Oximetry 95 03/23/24 17:35 03/23/24 17:40 03/23/24 17:40 Pulse Rate 112 H 121 H Respiratory Rate 17 12 Blood Pressure 97/82 Pulse Oximetry 95 95 03/23/24 17:45 03/23/24 17:46 03/23/24 17:46 Pulse Rate 118 H 119 H Respiratory Rate 16 12 Blood Pressure 112/83 Pulse Oximetry 96 96 03/23/24 17:50 03/23/24 17:50 03/23/24 17:55 Pulse Rate 119 H Respiratory Rate 14 Blood Pressure 114/83 114/79 Pulse Oximetry 96 03/23/24 17:55 03/23/24 18:00 03/23/24 18:00 Pulse Rate 109 H 113 H Respiratory Rate 17 12 Blood Pressure 116/83 Pulse Oximetry 99 98 03/23/24 18:05 03/23/24 18:05 Pulse Rate 124 H Respiratory Rate 17 Blood Pressure 103/70 Pulse Oximetry 98 Oxygen Delivery Method Room Air Narrative Exam Narrative: NAD, alert and oriented, fluent speech, calm. Flat affect. Normocephalic skull, EOMI, anicteric sclera, symmetric pupils. Oropharynx unremarkable, no droop. Neck supple, midline trachea, no adenopathy. Lungs clear, normal rate and effort. Heart regular, no murmur gallop or rub. Abdomen is soft, non distended and non tender. Midline incision appears to be healing well. There is a question of some drainage in the umbilical aspect of the incision. Extremities are free of edema. Skin is free of rash or lesions. Joints are not swollen or deformed. Judgment appears to be normal. Objective ECG Impression: Sinus tachycardia Imaging Multiple studies:: Radiologist's impression: Chest x-ray: No pneumothorax post left thoracentesis. Persistent moderate left pleural effusion with left lower lobe atelectasis. Chest ultrasound: Moderate left-sided pleural effusion. Posterior left chest was marked for potential thoracentesis to be performed by ordering physician. Chest CTA: 1. Postsurgical changes in right lower quadrant from prior partial bowel resection. Surgical anastomosis is intact. Mild constipation. Questionable sigmoid colon wall thickening which may be due to under distension. Low-grade sigmoid colitis cannot be excluded. No abscess collection. No peritoneal free fluid or free air. 2. Large left pleural effusion better evaluated on CT angiogram of chest study from the same day. Abdomen and pelvis CT: 1. No pulmonary embolus. No thoracic aortic aneurysm or dissection. 2. Moderate to large left pleural effusion with near complete atelectasis of left lower lobe and segmental atelectasis in posterior aspect of left lingular segment. No pneumothorax. Airway is patent. Incidentally noted of 6 x 3 mm oval nodule in right lower lobe. Follow-up CT chest in 6 months is recommended for evaluation of stability. 3. No mediastinal or hilar lymphadenopathy by size criteria. Labs 03/23/24 09:46 03/23/24 09:46 Labs: Laboratory Results - last 24 hr 03/23/24 03/23/24 03/23/24 09:46 10:42 13:12 WBC 5.4 RBC 3.88 L Hgb 11.2 L Hct 34.5 L MCV 88.7 MCH 29.0 MCHC 32.6 RDW 15.1 H Plt Count 698 H Neut % (Auto) 65.4 Lymph % (Auto) 24.6 L [place] % (Auto) 7.4 Eos % (Auto) 1.8 L Baso % (Auto) 0.8 Neut # (Auto) 3600 Lymph # (Auto) 1300 [place] # (Auto) 400 Eos # (Auto) 100 Baso # (Auto) 0 PT 13.7 H INR 1.2 APTT 36 Sodium 138 Potassium 3.9 Chloride 105 Carbon Dioxide 26 BUN 6 L Creatinine 0.56 Estimated GFR > 60 BUN/Creatinine Ratio 10.7 Glucose 97 Lactate 0.9 Calcium 9.7 Total Bilirubin 0.7 AST 31 ALT 20 Alkaline Phosphatase 84 Total Protein 8.3 H Albumin 4.0 Globulin 4.3 H Albumin/Globulin Ratio 0.9 L Lipase 63 Procalcitonin < 0.030 Urine RBC None seen Urine WBC 0-1/hpf Ur Squamous Epith Cells 1-5 /hpf Ur Transition Epith Cell 0-1/hpf Amorphous Sediment 2+ Urine Bacteria Few (2-10) H Hyaline Casts 10-30/lpf Granular Casts 1-5/lpf Ur Culture Indicated? Stage Electrician Vol Urine Centrifuged 10ml (spun) Fluid Color Fluid Appearance Fluid RBC Fld Tot Nucleated Cell Fluid Neutrophils % Fluid Lymphocytes % Fluid Eosinophils % Fluid Basophils % Fluid Meso/Macro/[place] % Body Fluid Clot Chlamy pneumoniae PCR Not detected Adenovirus (PCR) Not detected B. pertussis DNA (PCR) Not detected B.parapertussis DNA PCR Not detected Coronavirus OC43 (PCR) Not detected Coronavirus HKU1 (PCR) Not detected Coronavirus 229E (PCR) Not detected SARS-CoV-2 (PCR) Not detected Coronavirus NL63 (PCR) Not detected Human Metapneumovir PCR Not detected Influenza Type A (PCR) Not detected Influenza Type B (PCR) Not detected M. pneumoniae (PCR) Not detected Parainfluenza 1 (PCR) Not detected Parainfluenza 2 (PCR) Not detected Parainfluenza 3 (PCR) Not detected Parainfluenza 4 (PCR) Not detected RSV (PCR) Not detected Entero/Rhino (PCR) Not detected 03/23/24 16:04 WBC RBC Hgb Hct MCV MCH MCHC RDW Plt Count Neut % (Auto) Lymph % (Auto) [place] % (Auto) Eos % (Auto) Baso % (Auto) Neut # (Auto) Lymph # (Auto) [place] # (Auto) Eos # (Auto) Baso # (Auto) PT INR APTT Sodium Potassium Chloride Carbon Dioxide BUN Creatinine Estimated GFR BUN/Creatinine Ratio Glucose Lactate Calcium Total Bilirubin AST ALT Alkaline Phosphatase Total Protein Albumin Globulin Albumin/Globulin Ratio Lipase Procalcitonin Urine RBC Urine WBC Ur Squamous Epith Cells Ur Transition Epith Cell Amorphous Sediment Urine Bacteria Hyaline Casts Granular Casts Ur Culture Indicated? Vol Urine Centrifuged Fluid Color Yellow Fluid Appearance Clear Fluid RBC 2522 Fld Tot Nucleated Cell 1535 Fluid Neutrophils % 24 Fluid Lymphocytes % 56 Fluid Eosinophils % 2 Fluid Basophils % 1 Fluid Meso/Macro/[place] % 17 Body Fluid Clot No clots present Chlamy pneumoniae PCR Adenovirus (PCR) B. pertussis DNA (PCR) B.parapertussis DNA PCR Coronavirus OC43 (PCR) Coronavirus HKU1 (PCR) Coronavirus 229E (PCR) SARS-CoV-2 (PCR) Coronavirus NL63 (PCR) Human Metapneumovir PCR Influenza Type A (PCR) Influenza Type B (PCR) M. pneumoniae (PCR) Parainfluenza 1 (PCR) Parainfluenza 2 (PCR) Parainfluenza 3 (PCR) Parainfluenza 4 (PCR) RSV (PCR) Entero/Rhino (PCR) Assessment & Plan Assessment & Plan narrative: 1. Left-sided abdomen pain, present on admission and active. Patient was status post recent abdominal surgery complicated by abdominal abscesses. Imaging shows no abscesses but there is some evidence of possible sigmoid colitis. 2. Sinus tachycardia, present on admission and active. Plan: -analgesia and IV fluids tonight. No antibiotics and follow clinical course. -consider thoracentesis again tomorrow depending on her clinical progress. -antiemetics as needed. -monitor for diarrhea, C diff toxin rule out if she does have any evidence of diarrhea. -swab umbilical wound to look for any evidence of infection. The wound looked fairly unremarkable on CT scan. Full code Anticipate 1 midnight in the hospital, observation status. Time-Based Coding :: 35 min spent with patient and on the chart (including review of chart, obtaining history, exam, reviewing outside data, placing orders, documenting exam and treatment plan, and counseling patient) on 03/23. Quality MIPS - Admit I confirm the patient?s Advance Care Plan is present, Code status is documented, Surrogate decision maker is in patient?s record [If Yes, STOP here]: Yes MIPS - Meds 'Current medications' to include all prescriptions, [id number] products, herbals, cannabis/cannabidiol products, and vitamin/mineral/dietary (nutritional) supplements. I have utilized all available resources to obtain, update, or review the patient?s current medications. [If Yes, STOP here]: Yes
[2024-03-23] MEDS: SODIUM CHLORIDE 0.9% FLUSH 10 ML IV (19:15)
[2024-03-24] VITALS: BP 121/87; PULSE 84; RESP 16; TEMP 36.9; O2SAT 97
--- NOTE | 2024-03-24 | DI.RAD.S_ITS ---
PROCEDURE: XR CHEST 1V INDICATIONS: post thoracentesis TECHNIQUE: One view of the chest was acquired. COMPARISON: [facility], , XR CHEST 1V, 03/23/2024, 16:13. FINDINGS: Surgical changes and devices: None. Lungs and pleura: There is interval decrease in amount of left-sided pleural effusion. No pneumothorax. Right lung is clear. Mediastinum: Mediastinal contours appear normal. Heart size is normal. Bones and chest wall: No suspicious bony lesions. Overlying soft tissues appear unremarkable. IMPRESSION: No pneumothorax post left thoracentesis. Dictated by: Manish Cancino M.D. on 03/24/2024 at 12:14 Approved by: Manish Cancino M.D. on 03/24/2024 at 12:15
--- NOTE | 2024-03-24 | DI.US.S_ITS ---
PROCEDURE: US THORACENTESIS THERAPUTIC INDICATIONS: Left pleural effusion. TECHNIQUE: The indications, alternatives, benefits, risks, and complications of the procedure were explained to the patient. Written informed consent was obtained and placed in the chart. The chest was examined sonographically, and an appropriate site was chosen for thoracentesis. The skin was prepared and draped in the usual sterile fashion, and 1% lidocaine was infiltrated from the skin down through the pleural surface. A 19-gauge catheter-covered needle was then introduced into the pleural space, the catheter was advanced and the needle was withdrawn, and thereafter pleural fluid was aspirated. The catheter was then removed and a dressing was applied. COMPARISON: None. FINDINGS: Access site: Left hemithorax. Needle: One-Step centesis catheter with introducer needle. Fluid volume and description: 875 cc of yellowish fluid. Fluid sent for diagnostic testing: None. Medications: 1% lidocaine for local anaesthesia. Complications: None; post-procedural chest radiograph is pending to assess for pneumothorax. IMPRESSION: Successful ultrasound-guided thoracentesis. Dictated by: Manish Cancino M.D. on 03/24/2024 at 13:10 Approved by: Manish Cancino M.D. on 03/24/2024 at 13:11
[2024-03-24] MEDS: ACETAMINOPHEN 325 MG TABLET 650 MG PO (00:36)
[2024-03-24] MEDS: HYDROMORPHONE 0.5 MG INJ IV ×8 (00:36→19:46)
[2024-03-24] MEDS: ONDANSETRON 4 MG/2 ML INJ IV ×3 (00:50→17:11)
[2024-03-24] MEDS: SODIUM CHLORIDE 0.9% 1,000 ML 100 ML IV ×2 (00:53→10:53)
[2024-03-24 04:00] VITALS: BP 127/88; PULSE 81; RESP 20; TEMP 36.4; O2SAT 96
[2024-03-24 05:34] LABS: BUN Creatinine Ratio 8.3 (6-22); Blood Urea Nitrogen 4 mg/dL (7-17); Calcium 8.7 mg/dL (8.4-10.2); Carbon Dioxide 26 mmol/L (22-32); Chloride 107 mmol/L (98-107); Estimated Glomerular Filt Rate > 60 mL/min (>60); Glucose 87 mg/dL (70-100); HEMOLYSIS < 15 (0-50); Potassium 3.6 mmol/L (3.4-5.1); Sodium 135 mmol/L (137-145)
[2024-03-24 06:19] LABS: Add Manual Diff / Slide Review NO; Basophils Absolute Auto 0 /uL (0-100); Basophils Percent Auto 0.5 % (0-2); Eosinophils Absolute Auto 200 /uL (0-450); Eosinophils Percent Auto 2.7 % (2-4); Hematocrit 30.7 % (36-46); Hemoglobin 10.1 g/dL (12.0-16.0); Lymphocytes Absolute Auto 1700 /uL (1100-4500); Lymphocytes Percent Auto 19.8 % (25-40); Mean Corpuscular Hemoglobin 29.3 PG (26-34); Mean Corpuscular Volume 88.7 fL (80-100); Monocytes Absolute Auto 400 /uL (0-900); Monocytes Percent Auto 4.4 % (3-14); Neutrophils Absolute Auto 6100 /uL (1500-7000); Neutrophils Percent Auto 72.6 % (50-75); Platelet Count 612 X10^3/uL (150-400); Red Blood Cell Count 3.46 X10^6/uL (4.0-5.2); Red Cell Distribution Width 14.8 % (11.6-14.8); White Blood Cell Count 8.5 X10^3/uL (4.5-11.0)
[2024-03-24 08:00] VITALS: BP 114/83; PULSE 94; RESP 16; TEMP 36.8; O2SAT 96
--- NOTE | 2024-03-24 09:38 | DIET.CONS ---
Dietary Consultation Note Admission Date: 03/23/2024 17:59 Assessment: 28 y F admitted for nausea/vomiting. Nutrition consulted for weight loss and decreased appetite. Met with pt at bedside. Reports no food intake for last 3 days d/t unable to keep anything down. Since d[facility]c from [facility] has not been able to eat much PO besides a few bites one or 2 times a day of snacks/meals. Reports after surgery back in Jan. was unable to tolerate much po intakes so TPN was started. Estimates it was started in last 2 weeks of hospitalization, but is unsure. Reports around 15-20 lb weight loss within 2 months, with weight before 02/11/24 being 150 lb and most recent weight being 132 lb Pt denies wanting anything for lunch, reviewed all options. Did not have breakfast, could not tolerate smell. Informed pt of ext number for kitchen and snacks upstairs if changes mind. Pt reports not tolerating any of ONS options besides Boost. Pt is tearful and expresses desire to go home. Per team rounds, pt likely d/c today. Nutrition focused physical exam performed. -Mild muscle loss temples, deltoid -Mild subcutaneous fat loss buccal and orbital fat pads Ht: 170.18 cm Wt: 65.317 kg, per pt 60 kg most recently BMI: 22.5 UBW: 68.2 kg Last BM: 03/22/24 (03/23/24 18:42) MNA: 8 Fantasma Score: 21 Diet: 03/23/24 Dinner Vegetarian Diet Diet Modifications: fruit, vegetables and cottage cheese May Advance Diet as Tolerated: Yes Safety Tray needed?: No Vegetarian Type: Unknown Food Texture: Level 7 - Regular Liquid Consistency: Level 0 - Thin 03/24/24 Breakfast General (Regular) Diet Diet Modifications: Nutrition Percent Meal Consumed 0% 03/24/24 08:00 Labs: RBC 3.46 X10^6/uL (4.0-5.2) L 03/24/24 04:40 Hgb 10.1 g/dL (12.0-16.0) L 03/24/24 04:40 Hct 30.7 % (36-46) L 03/24/24 04:40 Creatinine 0.48 mg/dL (0.52-1.04) L 03/24/24 04:40 Lactate 0.9 mmol/L (0.7-2.1) 03/23/24 09:46 Nutrition Diagnosis: Severe acute protein calorie malnutrition r/t nausea/vomiting and recent prolonged hospitalization with inadequate PO intakes as evidenced by <25% estimated energy intake for 7 days (severe), mild muscle mass loss (temples, deltoid), 7.6% weight loss within 2 months (severe), 5 week recent hospitalization for bowel obstruction and bowel resection complicated with abdominal abscesses Interventions: 1. Pt likely to d/c today per team rounds, tolerates Boost ONS at home. Recc a Boost Plus ONS with meals until able to tolerated >75% of meal EER: 3465-3077 kcals (25-30 kcals/kg per BMI) 70-80 g protein (1.25 g/kg per PCM) Monitoring/Evaluations: f/u if pt not d/c Electronically Signed by: Abbey Hartman 03/24/24 09:38 Clinical Dietitian [address] [address]
--- NOTE | 2024-03-24 10:40 | P.PN_ITS ---
Subjective Subjective Interval history: Summary: She was admitted with nausea and tachycardia as well as persistent abdomen pain yesterday. She had a 4-5 week long hospitalization at for a bowel obstruction which was treated with a partial small-bowel resection and complicated by multiple abdominal abscesses. She would percutaneous drains, extensive antibiotics, and TPN. She has been home from the hospital for 1-2 weeks in his had persistent nausea, poor oral intake, persistent left-sided abdominal pain, and general failure to progress. She presented to the ED and was tachycardic. Chest x-ray revealed a left pleural effusion, she had a tap in the ED the in the fluid clear with study sent and pending. Her pain appears to be more abdominal. She was not eating due to general apprehension of abdominal pain. Subjective: She did okay overnight with IV fluids and resolved her tachycardia but still has persistent nausea, apprehension over taking anything orally, and left-sided abdominal pain. CT was negative for evidence of abdominal infection, we will add inflammatory markers today and place her on empiric antibiotics. Radiology is able to complete a thorough therapeutic thoracentesis for her persistent left moderate pleural effusion today. She was also very anxious. She was now getting Ativan as needed for anxiety. Exam Vital Signs (past 8 hours): - 03/24/24 04:00 03/24/24 07:59 03/24/24 08:00 Temperature 97.6 F 98.2 F Pulse Rate 81 94 H Respiratory Rate 20 16 Blood Pressure 127/88 114/83 Pulse Oximetry 96 96 Oxygen Delivery Method Room Air Oxygen Flow Rate 0 Oxygen Delivery Method Room Air Oxygen Flow Rate 0 Narrative Exam Narrative: Anxious, distressed. Normal speech. Lungs are clear, diminished breath sounds in the left base. Heart is regular, not tachycardic. Abdomen has tenderness in the left upper and lower quadrant without guarding or rebound. No leg edema. Objective ECG Impression: Sinus tachycardia Imaging Multiple studies:: Radiologist's impression: Chest x-ray: No pneumothorax post left thoracentesis. Persistent moderate left pleural effusion with left lower lobe atelectasis. Chest ultrasound: Moderate left-sided pleural effusion. Posterior left chest was marked for potential thoracentesis to be performed by ordering physician. Chest CTA: 1. Postsurgical changes in right lower quadrant from prior partial bowel resection. Surgical anastomosis is intact. Mild constipation. Questionable sigmoid colon wall thickening which may be due to under distension. Low-grade sigmoid colitis cannot be excluded. No abscess collection. No peritoneal free fluid or free air. 2. Large left pleural effusion better evaluated on CT angiogram of chest study from the same day. Abdomen and pelvis CT: 1. No pulmonary embolus. No thoracic aortic aneurysm or dissection. 2. Moderate to large left pleural effusion with near complete atelectasis of left lower lobe and segmental atelectasis in posterior aspect of left lingular segment. No pneumothorax. Airway is patent. Incidentally noted of 6 x 3 mm oval nodule in right lower lobe. Follow-up CT chest in 6 months is recommended for evaluation of stability. 3. No mediastinal or hilar lymphadenopathy by size criteria. Labs 03/24/24 04:40 03/24/24 04:40 Labs: Laboratory Results - last 24 hr 03/23/24 03/23/24 03/23/24 10:42 13:12 16:04 WBC RBC Hgb Hct MCV MCH MCHC RDW Plt Count Neut % (Auto) Lymph % (Auto) [place] % (Auto) Eos % (Auto) Baso % (Auto) Neut # (Auto) Lymph # (Auto) [place] # (Auto) Eos # (Auto) Baso # (Auto) Sodium Potassium Chloride Carbon Dioxide BUN Creatinine Estimated GFR BUN/Creatinine Ratio Glucose Calcium Urine RBC None seen Urine WBC 0-1/hpf Ur Squamous Epith Cells 1-5 /hpf Ur Transition Epith Cell 0-1/hpf Amorphous Sediment 2+ Urine Bacteria Few (2-10) H Hyaline Casts 10-30/lpf Granular Casts 1-5/lpf Ur Culture Indicated? Painter Interior Finish Vol Urine Centrifuged 10ml (spun) Fluid Color Yellow Fluid Appearance Clear Fluid RBC 2522 Fld Tot Nucleated Cell 1535 Fluid Neutrophils % 24 Fluid Lymphocytes % 56 Fluid Eosinophils % 2 Fluid Basophils % 1 Fluid Meso/Macro/[place] % 17 Body Fluid Clot No clots present Chlamy pneumoniae PCR Not detected Adenovirus (PCR) Not detected B. pertussis DNA (PCR) Not detected B.parapertussis DNA PCR Not detected Coronavirus OC43 (PCR) Not detected Coronavirus HKU1 (PCR) Not detected Coronavirus 229E (PCR) Not detected SARS-CoV-2 (PCR) Not detected Coronavirus NL63 (PCR) Not detected Human Metapneumovir PCR Not detected Influenza Type A (PCR) Not detected Influenza Type B (PCR) Not detected M. pneumoniae (PCR) Not detected Parainfluenza 1 (PCR) Not detected Parainfluenza 2 (PCR) Not detected Parainfluenza 3 (PCR) Not detected Parainfluenza 4 (PCR) Not detected RSV (PCR) Not detected Entero/Rhino (PCR) Not detected 03/24/24 04:40 WBC 8.5 D RBC 3.46 L Hgb 10.1 L Hct 30.7 L MCV 88.7 MCH 29.3 MCHC 33.0 RDW 14.8 Plt Count 612 H Neut % (Auto) 72.6 Lymph % (Auto) 19.8 L [place] % (Auto) 4.4 Eos % (Auto) 2.7 Baso % (Auto) 0.5 Neut # (Auto) 6100 Lymph # (Auto) 1700 [place] # (Auto) 400 Eos # (Auto) 200 Baso # (Auto) 0 Sodium 135 L Potassium 3.6 Chloride 107 Carbon Dioxide 26 BUN 4 L Creatinine 0.48 L Estimated GFR > 60 BUN/Creatinine Ratio 8.3 Glucose 87 Calcium 8.7 Urine RBC Urine WBC Ur Squamous Epith Cells Ur Transition Epith Cell Amorphous Sediment Urine Bacteria Hyaline Casts Granular Casts Ur Culture Indicated? Vol Urine Centrifuged Fluid Color Fluid Appearance Fluid RBC Fld Tot Nucleated Cell Fluid Neutrophils % Fluid Lymphocytes % Fluid Eosinophils % Fluid Basophils % Fluid Meso/Macro/[place] % Body Fluid Clot Chlamy pneumoniae PCR Adenovirus (PCR) B. pertussis DNA (PCR) B.parapertussis DNA PCR Coronavirus OC43 (PCR) Coronavirus HKU1 (PCR) Coronavirus 229E (PCR) SARS-CoV-2 (PCR) Coronavirus NL63 (PCR) Human Metapneumovir PCR Influenza Type A (PCR) Influenza Type B (PCR) M. pneumoniae (PCR) Parainfluenza 1 (PCR) Parainfluenza 2 (PCR) Parainfluenza 3 (PCR) Parainfluenza 4 (PCR) RSV (PCR) Entero/Rhino (PCR) [facility] Social History household members: family Smoking Status: Unknown if ever smoked Assessment & Plan Assessment & Plan narrative: 1. Left-sided abdomen pain, present on admission and active. Patient was status post recent abdominal surgery complicated by abdominal abscesses. Imaging shows no abscesses but there is some evidence of possible sigmoid colitis. 2. Sinus tachycardia, present on admission and resolved. 3. Volume depletion, present on admission and improving. 4. Anxiety, present on admission and active. 5. Left pleural effusion with initial tap in the ED for a small volume which was clear fluid with initial studies pending. She also has left lung atelectasis due to the effusion. Plan: -we will start empiric antibiotics today for possible abdominal infection. -radiology's able to do a therapeutic thoracentesis. -Ativan for anxiety. -continue IV fluids. -diagnostic studies on pleural fluid. -encourage clear liquids today. -antiemetics and pain medications as needed. -add CRP and procalcitonin. LOREN: 03/26 Full code Her boyfriend, yue is her only family locally. She was from [place], this is where her parents live. She requires a 2nd night of hospital level care. Time-Based Coding :: [TOTAL MINUTES] spent with patient and on the chart (including review of chart, obtaining history, exam, reviewing outside data, placing orders, documenting exam and treatment plan, and counseling patient) on [DATE]. Quality VTE Deep Vein Thrombosis/Pulmonary Embolism Present on Admission: No
[2024-03-24] MEDS: PIPERACILLIN/TAZO 3.375 GM in SODIUM CHLORIDE 0.9% 100 ML IV ×2 (10:53→18:00)
[2024-03-24] MEDS: LORazepam 2 MG/ML INJ 0.5 MG IV ×4 (10:53→19:46)
[2024-03-24 12:35] LABS: Procalcitonin 0.033 ng/mL (<0.5)
--- NOTE | 2024-03-24 14:11 | CM.DANOTE ---
Initial DCP Assessment Visit Note Reviewed EMR and team rounds for status updates. Went to meet with pt at bedside, however she was found to be sleeping. Pt lives independently at baseline with her boyfriend in their own home here in [place]. Her boyfriend will also plan to transport her home once she's medically stable for home d/c, likely , 03/25. Her boyfriend will transport her home. Payor: Self Pay NO PCP Pt is a 28 year-old F who was recently hospitalized at [facility] for a month for a bowel obstruction, TPN, IV ABO's, and multiple abscess drainage procedures. She was discharged home, but then developed a splenic abscess, which again required new drains placed. She was started on IV ABO's and Zofran for several episodes of vomiting. Chest x-ray in the ED was positive for a moderate sized L-pleural effusion, she did have a successful thoracentesis today by interventional radiology. Due to her extensive medical treatments and duration, pt has developed acute anxiety and fears relating to oral intake. She was started on PRN Ativan with good benefit. DCP will continue to monitor for final d/c needs and recommendations. Discharge Planning/Care Management CM Discharge Assessment Start: 03/24/24 14:02 Freq: Status: Active Protocol: Document 03/24/24 14:02 DPL (Rec: 03/24/24 14:09 DPL [id number]) Discharge Planning Assessment Assigned Extruder Operator Multiple ELIA Stein Advance Directives? No History Provided By Patient,Medical Record Has Patient been admitted in last 30 No days? Prior Living Arrangements House Household Members significant other Type of transporation used prior to Drives own vehicle admit Independent with ADL's Yes Is patient alert and oriented? Yes Comment N/A Caregiver for Another No Comment No d/c needs identified at this time. Barriers to Discharge No Discharge Plan Home Transportation Arrangement Boyfriend Referrals Initiated None needed Review Status In Process Please Provide Date Initial DC 03/24/24 Assessment Was Performed
[2024-03-24] MEDS: SODIUM CHLORIDE 0.9% FLUSH 10 ML IV (20:50)
[2024-03-24] MEDS: HYDROMORPHONE 0.5 MG INJ 1 MG IV (22:10)
[2024-03-24] MEDS: LORazepam 2 MG/ML INJ 1 MG IV (22:11)
[2024-03-25] MEDS: LORazepam 2 MG/ML INJ 1 MG IV ×3 (02:29→10:28)
[2024-03-25] MEDS: HYDROMORPHONE 0.5 MG INJ 1 MG IV ×4 (02:29→10:06)
[2024-03-25] MEDS: PIPERACILLIN/TAZO 3.375 GM in SODIUM CHLORIDE 0.9% 100 ML IV ×2 (02:29→13:51)
--- NOTE | 2024-03-25 05:32 | PC.NURSE ---
Nightshift Pt has been very emotionally upset, crying, sobbing and hyperventilating through out most of the shift with brief naps after receiving Medication Per EMAR for anxiety and pain. Pt has mentioned between sobs, that she is overwhelmed and wants to leave hospital but has no where to go, but will not elaborate further. RN attempted several times thru shift to get clarification with Pt but each time RN tried to approach topic Pt would become more upset and not answer. RN decided to not pursue further questions, to not increase agitation and encourage/reassure Pt to rest and notify RN if Nausea, pain, or anxiety return. Pt verbalized understanding. Pt has been calling appropriately all shift, and apologizing frequently for crying and having emotional fits. RN noted multiple scars on Pt from self inflicted cutting. Night time Provider notified at beginning of shift that Pt was was not feeling the IV pain medication nor the Ativan were effective enough for her emotional situation and pain. Provider increased doses of both (review EMAR). since increase in dosage Pt was able to have relief from pain and anxiety and able to rest intermittent.
[2024-03-25 08:00] VITALS: BP 126/87; PULSE 114; RESP 13; TEMP 36.7; O2SAT 97
[2024-03-25] MEDS: SODIUM CHLORIDE 0.9% 1,000 ML 100 ML IV (08:57)
[2024-03-25] MEDS: ONDANSETRON 4 MG/2 ML INJ IV (10:06)
--- NOTE | 2024-03-25 10:41 | CM.DPC ---
DCP Cont. Reviewed EMR and team rounds for status updates. Met with pt at bedside to address concerns that she was stating last night that she has no where to go at d/c. She denied having said this, and states that she lives with her boyfriend. She was clearly depressed, which is understandable due to her medical complications and how long this has been going on. Pt does not have insurance. Will notify the admission counselors to meet with her on Friday to assist with signing her up for the [employer] ([employer]) as it is open enrollment, so that she can establish with a PCP for ongoing anxiety/depression eval and antidepressant therapy.
[2024-03-25] MEDS: HYDROMORPHONE 1 MG INJ IV (12:27)
--- NOTE | 2024-03-25 13:21 | P.PN_ITS ---
Subjective Subjective Interval history: This is a 28 year old female, recently admitted to [facility] where she had stercoral colitis requiring colotomy and abdominal contamination with perisplenic abscesses treated with 2 weeks of carbapenem as organism grew ESBL E. coli after CT guided drainage and drain placement. She was requiring significant pain control medications at discharge. She was admitted with continued nausea and pain. In review of her prior discharge she was discharged on oxycodone 20 mg q4 hr and ativan 0.5 mg for anxiety. Today she states that she had been rationing oxycodone, was having continued pain, then developed chills nausea vomiting prior to her admission here. Recap of admission at [facility] based on my review of discharge paperwork and primarily radiology documentation. The discharge summary is largely unhelpful for a timeline of events. 02/10 - admission. CT showing LBO with stool. Lower lungs were normal appearing then. 02/11 - Surgery, CT agnio chest after surgery showing pleural fluid 02/15 - perisplenic abscess, based on review she was possibly started on cefepime at this time. 02/21 - 9x11 abscess on repeat CT 02/22 - IR drain placement, unclear if cultures from this grew anything. 02/24 - thoracentesis 100 cc removed, do not see any evidence fluid was sent with labs or cultures based on available paperwork. 03/02- 2nd IR drainage as tube dislodged per patient. 03/03-started on meropenem for ESBL growing from cultures, unclear if this was from 02/22 or 03/02 drainage. 03/04- repeat CT showing increased pleural effusions, improved abscess. 03/09 - discharged home on 20 mg q4 hr prn oxycodone. 03/17 - patient completed ertapenem course at home Exam Vital Signs (past 8 hours): - 03/25/24 08:00 Temperature 98.0 F Pulse Rate 114 H Respiratory Rate 13 Blood Pressure 126/87 Pulse Oximetry 97 Oxygen Flow Rate 0 Oxygen Delivery Method Room Air Oxygen Flow Rate 0 Narrative Exam Narrative: Anxious, distressed and tearful. Normal speech. Lungs are clear, diminished breath sounds in the left base. Heart is regular, not tachycardic. Abdomen has tenderness in the left upper and lower quadrant without guarding or rebound. No leg edema. Objective Labs 03/24/24 04:40 03/24/24 04:40 Labs: Laboratory Results - last 24 hr 03/23/24 16:05 Ref Test (Refrig) Comment [facility] Social History household members: significant other Smoking Status: Unknown if ever smoked Assessment & Plan Assessment & Plan narrative: This is a 28 year old female with recently complex hospitalization who presented with worsening pleuritic left sided chest pain, along with recurrent pleural effusion, chills, and nausea. Suspect initial symptoms are related to opiate withdrawal, given negative infectious workup to this point. Will increase her opiates and non-opiates today in hopes of pain control and symptom control. The etiology for her left pleural effusion is likely reactive to her recent perisplenic abscess which appears resolved on imaging here. Will reassess fluid tomorrow with another radiograph to see if the fluid is reaccumulating. 1. left pleuritic chest pain and recurrent pleural effusion 2. acute opiate withdrawal 3. Recent ESBL intra-abdominal infection with perisplenic abscess, now improved. 4. Anxiety due to illness Plan: - increase opiates to approximate previous dosing. Will start with 60 mg oxycodone ER BID (to approx 20 mg q4 hr). Increase prn to 10 mg q4 hr, and have IV dilaudid 2 mg q2 for breakthrough. Will likely need prolonged taper as an outpatient. - start 800 mg q8 scheduled ibuprofen, along with 300 mg TID gabapentin to attempt to use less opiate therapy. - symptom treatment with ativan for anxiety as needed - reassess pleural effusion tomorrow with another CXR for reaccumulation. Consult pulmonology if increasing pleural effusion again. - initial fluid studies LDH 182, 2522 RBC and 1535 nucleated cells. No serum LDH drawn at the time. Cultures from fluid are without growth thus far. No other studies sent. - stop antibiotics, there does not appear to be evidence of active infection given procalcitonin negative, no fever, cultures are negative. Etiology likely reactive due to her recent perisplenic abscess. LOREN: pending above evaluation Full code Her boyfriend, yue is her only family locally. She was from [place], this is where her parents live. Inpatient status: dispo depends on if recurrence of effusion after thoracentesis, along with control of pain. Time-Based Coding :: [TOTAL MINUTES] spent with patient and on the chart (including review of chart, obtaining history, exam, reviewing outside data, placing orders, documenting exam and treatment plan, and counseling patient) on [DATE]. Quality VTE Deep Vein Thrombosis/Pulmonary Embolism Present on Admission: No
[2024-03-25] MEDS: OXYCODONE ER 20 MG TAB 60 MG PO ×2 (13:51→20:29)
[2024-03-25] MEDS: OXYCODONE IR 5 MG TABLET 10 MG PO (15:43)
[2024-03-25] MEDS: IBUPROFEN 400 MG TABLET 800 MG PO ×2 (15:43→20:28)
[2024-03-25] MEDS: GABAPENTIN 300 MG CAPSULE PO ×2 (15:44→20:29)
[2024-03-25] MEDS: ONDANSETRON 4 MG ODT SL (15:44)
[2024-03-25] MEDS: HYDROMORPHONE 2 MG INJ IV ×2 (17:33→20:24)
[2024-03-25 19:55] VITALS: BP 110/86; PULSE 92; RESP 14; TEMP 36.2; O2SAT 93
[2024-03-25] MEDS: SODIUM CHLORIDE 0.9% FLUSH 10 ML IV (20:30)
[2024-03-26] MEDS: HYDROMORPHONE 2 MG INJ IV ×2 (03:11→06:27)
[2024-03-26 05:41] LABS: Add Manual Diff / Slide Review NO; Basophils Absolute Auto 100 /uL (0-100); Basophils Percent Auto 0.9 % (0-2); Eosinophils Absolute Auto 300 /uL (0-450); Eosinophils Percent Auto 5.2 % (2-4); Hematocrit 34.8 % (36-46); Hemoglobin 11.5 g/dL (12.0-16.0); Lymphocytes Absolute Auto 2100 /uL (1100-4500); Lymphocytes Percent Auto 37.8 % (25-40); Mean Corpuscular HGB Conc 33.1 % (30-36); Mean Corpuscular Hemoglobin 28.8 PG (26-34); Monocytes Absolute Auto 600 /uL (0-900); Monocytes Percent Auto 10.2 % (3-14); Neutrophils Absolute Auto 2600 /uL (1500-7000); Neutrophils Percent Auto 45.9 % (50-75); Platelet Count 589 X10^3/uL (150-400); Red Cell Distribution Width 14.6 % (11.6-14.8); White Blood Cell Count 5.6 X10^3/uL (4.5-11.0)
[2024-03-26 05:58] LABS: Alanine Aminotransferase 15 IU/L (<35); Albumin 3.6 g/dL (3.5-5.0); Albumin Globulin Ratio 0.9 (1.0-2.8); Alkaline Phosphatase 77 U/L (38-126); Aspartate Aminotransferase 28 IU/L (14-36); BUN Creatinine Ratio 9.6 (6-22); Bilirubin Total 0.4 mg/dL (0.2-1.3); Blood Urea Nitrogen 5 mg/dL (7-17); Calcium 9.2 mg/dL (8.4-10.2); Carbon Dioxide 30 mmol/L (22-32); Chloride 101 mmol/L (98-107); Estimated Glomerular Filt Rate > 60 mL/min (>60); Globulin 3.8 g/dL (1.7-4.1); Glucose 89 mg/dL (70-100); HEMOLYSIS < 15 (0-50); Magnesium 1.7 mg/dL (1.6-2.3); Potassium 3.6 mmol/L (3.4-5.1); Sodium 137 mmol/L (137-145); Total Protein 7.4 g/dL (6.3-8.2)
[2024-03-26] MEDS: IBUPROFEN 400 MG TABLET 800 MG PO ×3 (06:27→20:23)
[2024-03-26 08:01] VITALS: BP 108/78; PULSE 98; RESP 14; TEMP 36.5; O2SAT 93
[2024-03-26] MEDS: ONDANSETRON 4 MG ODT SL (08:30)
--- NOTE | 2024-03-26 08:44 | DIET.PN1 ---
Dietary Progress Note Assessment: Met w/ pt in room, reports able to eat some of stuffing yesterday and drank 1 Boost that partner brought in. This morning was eating fruit and cottage cheese on breakfast tray and had opened high protein Boost drink that was half gone already. Is eating as tolerated. Ordered lunch. Encouraged continued intake as tolerated, small freq meals as needed with supplemental Boost between or with meals if unable to tolerate 75% or more to prevent further weight loss. Will continue to monitor PO intakes. Ht: 170.18 cm Wt: 63 kg BMI: 22.5 UBW: 68.2 kg Last BM: 03/22/24 (03/23/24 18:42) MNA: 8 Fantasma Score: 21 Diet: 03/23/24 Dinner Vegetarian Diet Diet Modifications: fruit, vegetables and cottage cheese May Advance Diet as Tolerated: Yes Safety Tray needed?: No Vegetarian Type: Unknown Food Texture: Level 7 - Regular Liquid Consistency: Level 0 - Thin 03/24/24 Breakfast General (Regular) Diet Diet Modifications: Nutrition Percent Meal Consumed 0% 03/25/24 18:00 Percent Meal Consumed 0% 03/25/24 17:48 Percent Meal Consumed 0% 03/25/24 09:40 Labs: RBC 4.00 X10^6/uL (4.0-5.2) 03/26/24 05:27 Hgb 11.5 g/dL (12.0-16.0) L 03/26/24 05:27 Hct 34.8 % (36-46) L 03/26/24 05:27 Creatinine 0.52 mg/dL (0.52-1.04) 03/26/24 05:27 Lactate 0.9 mmol/L (0.7-2.1) 03/23/24 09:46 Electronically Signed by: Abbey Hartman 03/26/24 08:44 Clinical Dietitian [address] [address]
[2024-03-26] MEDS: OXYCODONE IR 5 MG TABLET 10 MG PO (11:26)
[2024-03-26] MEDS: ONDANSETRON 4 MG/2 ML INJ IV (11:26)
[2024-03-26] MEDS: ACETAMINOPHEN 325 MG TABLET 650 MG PO ×2 (11:26→20:22)
[2024-03-26] MEDS: HYDROMORPHONE 2 MG INJ 1 MG IV ×2 (12:24→18:52)
--- NOTE | 2024-03-26 13:33 | P.PN_ITS ---
Subjective Subjective Interval history: Yesterday: This is a 28 year old female, recently admitted to [facility] where she had stercoral colitis requiring colotomy and abdominal contamination with perisplenic abscesses treated with 2 weeks of carbapenem as organism grew ESBL E. coli after CT guided drainage and drain placement. She was requiring significant pain control medications at discharge. She was admitted with continued nausea and pain. In review of her prior discharge she was discharged on oxycodone 20 mg q4 hr and ativan 0.5 mg for anxiety. Today she states that she had been rationing oxycodone, was having continued pain, then developed chills nausea vomiting prior to her admission here. Recap of admission at [facility] based on my review of discharge paperwork and primarily radiology documentation. The discharge summary is largely unhelpful for a timeline of events. 02/10 - admission. CT showing LBO with stool. Lower lungs were normal appearing then. 02/11 - Surgery, CT agnio chest after surgery showing pleural fluid 02/15 - perisplenic abscess, based on review she was possibly started on cefepime at this time. 02/21 - 9x11 abscess on repeat CT 02/22 - IR drain placement, unclear if cultures from this grew anything. 02/24 - thoracentesis 100 cc removed, do not see any evidence fluid was sent with labs or cultures based on available paperwork. 03/02- 2nd IR drainage as tube dislodged per patient. 03/03-started on meropenem for ESBL growing from cultures, unclear if this was from 02/22 or 03/02 drainage. 03/04- repeat CT showing increased pleural effusions, improved abscess. 03/09 - discharged home on 20 mg q4 hr prn oxycodone. 03/17 - patient completed ertapenem course at home Interval history from the last 24 hours: Patient reports improved pain today, however she is quite lethargic falls asleep easily, states she does not like how she feels. Also nausea with emesis during my encounter. She does appear calm, but when discussing medical management she does become quite anxious during the encounter. Exam Vital Signs (past 8 hours): - 03/26/24 08:01 Temperature 97.7 F Pulse Rate 98 H Respiratory Rate 14 Blood Pressure 108/78 Pulse Oximetry 93 Oxygen Flow Rate 0 Oxygen Delivery Method Room Air Oxygen Flow Rate 0 Narrative Exam Narrative: Anxious, distressed and tearful. Normal speech. Lungs are clear, diminished breath sounds in the left base. Heart is regular, not tachycardic. Abdomen has tenderness in the left upper and lower quadrant without guarding or rebound. No leg edema. Objective Labs 03/26/24 05:27 03/26/24 05:27 Labs: Laboratory Results - last 24 hr 03/26/24 05:27 WBC 5.6 RBC 4.00 Hgb 11.5 L Hct 34.8 L MCV 87.0 MCH 28.8 MCHC 33.1 RDW 14.6 Plt Count 589 H Neut % (Auto) 45.9 L Lymph % (Auto) 37.8 Love % (Auto) 10.2 Eos % (Auto) 5.2 H Baso % (Auto) 0.9 Neut # (Auto) 2600 Lymph # (Auto) 2100 Love # (Auto) 600 Eos # (Auto) 300 Baso # (Auto) 100 Sodium 137 Potassium 3.6 Chloride 101 Carbon Dioxide 30 BUN 5 L Creatinine 0.52 Estimated GFR > 60 BUN/Creatinine Ratio 9.6 Glucose 89 Calcium 9.2 Magnesium 1.7 Total Bilirubin 0.4 AST 28 ALT 15 Alkaline Phosphatase 77 Total Protein 7.4 Albumin 3.6 Globulin 3.8 Albumin/Globulin Ratio 0.9 L [facility] Social History household members: significant other Smoking Status: Unknown if ever smoked Assessment & Plan Assessment & Plan narrative: This is a 28 year old female with recently complex hospitalization who presented with worsening pleuritic left sided chest pain, along with recurrent pleural effusion, chills, and nausea. Suspect initial symptoms are related to opiate withdrawal, given negative infectious workup to this point. Will increase her opiates and non-opiates today in hopes of pain control and symptom control. The etiology for her left pleural effusion is likely reactive to her recent perisplenic abscess which appears resolved on imaging here. Will reassess fluid tomorrow with another radiograph to see if the fluid is reaccumulating. 1. left pleuritic chest pain and recurrent pleural effusion 2. acute opiate withdrawal 3. Recent ESBL intra-abdominal infection with perisplenic abscess, now improved. 4. Anxiety due to illness Plan: - Will decrease opiates today, to oxycontin 30 mg BID, with 5-10 IR oxycodone prn and reduce dilaudid to 1 mg IV. - added IV antiemetic with vomiting today. - start 800 mg q8 scheduled ibuprofen, along with 300 mg TID gabapentin to attempt to use less opiate therapy. - symptom treatment with ativan for anxiety as needed - Pleural effusion appears per my evaluation today to be slightly improved to stable, given no hypoxia and improved pain recommend outpatient pulmonology consultation at this time, but may need re-assessment depending on her course here. - initial fluid studies LDH 182, 2522 RBC and 1535 nucleated cells. No serum LDH drawn at the time. Cultures from fluid are without growth thus far. No other studies sent. - stopped antibiotics, there does not appear to be evidence of active infection given procalcitonin negative, no fever, cultures are negative. Etiology likely reactive due to her recent perisplenic abscess. LOREN: pending optimization of pain control prior to discharge home. Hopefully home tomorrow. Full code Her boyfriend, yue is her only family locally. She was from [place], this is where her parents live. Time-Based Coding :: [TOTAL MINUTES] spent with patient and on the chart (including review of chart, obtaining history, exam, reviewing outside data, placing orders, documenting exam and treatment plan, and counseling patient) on [DATE]. Quality VTE Deep Vein Thrombosis/Pulmonary Embolism Present on Admission: No
--- NOTE | 2024-03-26 14:15 | CM.DPC ---
DCP Continued: Reviewed EMR and team rounds for pt?s medical status. Per hospitalist, pain management and stabilization are prioritized at this time. It has been reported by Admitting Counselor that pt has [employer] insurance. DCP entered room, introduced self and role. Pt spoke of preference to discharge as soon as stable but identified that she has been nauseated all day. DCP discussed establishing a PCP at this time as there is none on file, pt reports she has already established care with MIGDALIA Pina. DCP updated EMR with pt's PCP. No other discharge needs identified at this time. Plan: Anticipating discharge home with fiance to transport tomorrow, 03/27 or when medically cleared. CM Team will continue to follow for coordination of discharge plans. MARCUS Kendall
[2024-03-26] MEDS: GABAPENTIN 300 MG CAPSULE PO ×2 (16:00→20:23)
[2024-03-26] MEDS: OXYCODONE IR 5 MG TABLET PO (16:16)
[2024-03-26] MEDS: LORazepam 1 MG TABLET PO (16:17)
[2024-03-26 20:00] VITALS: BP 104/74; PULSE 78; RESP 12; TEMP 36.6; O2SAT 96
[2024-03-26] MEDS: SODIUM CHLORIDE 0.9% FLUSH 10 ML IV (20:23)
[2024-03-26] MEDS: OXYCODONE ER 20 MG TAB 30 MG PO (20:23)
[2024-03-27] MEDS: OXYCODONE IR 5 MG TABLET 10 MG PO ×3 (04:23→23:19)
[2024-03-27] MEDS: IBUPROFEN 400 MG TABLET 800 MG PO ×3 (05:15→21:02)
[2024-03-27 06:02] LABS: Add Manual Diff / Slide Review NO; Basophils Absolute Auto 0 /uL (0-100); Basophils Percent Auto 0.5 % (0-2); Eosinophils Absolute Auto 400 /uL (0-450); Eosinophils Percent Auto 7.5 % (2-4); Hematocrit 33.5 % (36-46); Hemoglobin 11.1 g/dL (12.0-16.0); Lymphocytes Absolute Auto 2200 /uL (1100-4500); Lymphocytes Percent Auto 45.9 % (25-40); Mean Corpuscular HGB Conc 33.1 % (30-36); Mean Corpuscular Hemoglobin 29.1 PG (26-34); Mean Corpuscular Volume 87.7 fL (80-100); Monocytes Absolute Auto 500 /uL (0-900); Monocytes Percent Auto 9.5 % (3-14); Neutrophils Absolute Auto 1800 /uL (1500-7000); Neutrophils Percent Auto 36.6 % (50-75); Platelet Count 560 X10^3/uL (150-400); Red Blood Cell Count 3.82 X10^6/uL (4.0-5.2); Red Cell Distribution Width 14.6 % (11.6-14.8); White Blood Cell Count 4.8 X10^3/uL (4.5-11.0)
[2024-03-27 06:17] LABS: Alanine Aminotransferase 15 IU/L (<35); Albumin 3.4 g/dL (3.5-5.0); Albumin Globulin Ratio 0.9 (1.0-2.8); Alkaline Phosphatase 73 U/L (38-126); Aspartate Aminotransferase 28 IU/L (14-36); BUN Creatinine Ratio 17.7 (6-22); Bilirubin Total 0.3 mg/dL (0.2-1.3); Blood Urea Nitrogen 11 mg/dL (7-17); Calcium 9.2 mg/dL (8.4-10.2); Carbon Dioxide 33 mmol/L (22-32); Chloride 99 mmol/L (98-107); Estimated Glomerular Filt Rate > 60 mL/min (>60); Globulin 3.8 g/dL (1.7-4.1); Glucose 91 mg/dL (70-100); HEMOLYSIS < 15 (0-50); Magnesium 1.8 mg/dL (1.6-2.3); Potassium 3.6 mmol/L (3.4-5.1); Sodium 138 mmol/L (137-145); Total Protein 7.2 g/dL (6.3-8.2)
[2024-03-27 08:00] VITALS: BP 97/67; PULSE 77; RESP 14; TEMP 36.2; O2SAT 99
[2024-03-27] MEDS: HYDROMORPHONE 2 MG INJ 1 MG IV ×4 (09:04→19:57)
[2024-03-27] MEDS: ONDANSETRON 4 MG/2 ML INJ IV (09:04)
[2024-03-27] MEDS: GABAPENTIN 300 MG CAPSULE PO ×3 (09:05→21:03)
[2024-03-27] MEDS: ACETAMINOPHEN 325 MG TABLET 650 MG PO ×3 (09:05→19:58)
[2024-03-27] MEDS: SODIUM CHLORIDE 0.9% FLUSH 10 ML IV ×2 (09:05→21:05)
[2024-03-27] MEDS: OXYCODONE ER 20 MG TAB 30 MG PO (10:08)
[2024-03-27] MEDS: OXYCODONE IR 5 MG TABLET PO (11:40)
[2024-03-27] MEDS: MAGNESIUM HYDROXIDE 30 ML UDC PO (11:41)
--- NOTE | 2024-03-27 13:57 | CM.DPC ---
DCP Cont: Per MD, pt with recurrent pleural effusions and having ongoing pain management issues and adjusting her pain medications today for better coverage and potential for discharge home later today if pain well controlled. Plan: SW to follow for plan of d/c home with Sig Other today vs tomorrow when pain well controlled and outpt f/u with PCP. ELIA Walton
[2024-03-27] MEDS: ONDANSETRON 4 MG ODT SL (14:20)
--- NOTE | 2024-03-27 14:53 | PM.PN.1 ---
Subjective Subjective Interval history: Pain is a bit worse today, but she does not feel groggy. Was able to tolerate some food today but was very nauseous after. Exam Vital Signs (past 8 hours): - 03/27/24 08:00 03/27/24 09:00 Temperature 97.2 F L Pulse Rate 77 Respiratory Rate 14 Blood Pressure 97/67 Pulse Oximetry 99 Oxygen Delivery Method Room Air Oxygen Flow Rate 0 Oxygen Delivery Method Room Air Oxygen Flow Rate 0 Narrative Exam Narrative: Anxious, distressed and tearful. Normal speech. Lungs are clear, diminished breath sounds in the left base. Heart is regular, not tachycardic. Abdomen has tenderness in the left upper and lower quadrant without guarding or rebound. No leg edema. Objective Labs 03/27/24 05:17 03/27/24 05:17 Labs: Laboratory Results - last 24 hr 03/27/24 05:17 WBC 4.8 RBC 3.82 L Hgb 11.1 L Hct 33.5 L MCV 87.7 MCH 29.1 MCHC 33.1 RDW 14.6 Plt Count 560 H Neut % (Auto) 36.6 L Lymph % (Auto) 45.9 H Summers % (Auto) 9.5 Eos % (Auto) 7.5 H Baso % (Auto) 0.5 Neut # (Auto) 1800 Lymph # (Auto) 2200 Summers # (Auto) 500 Eos # (Auto) 400 Baso # (Auto) 0 Sodium 138 Potassium 3.6 Chloride 99 Carbon Dioxide 33 H BUN 11 Creatinine 0.62 Estimated GFR > 60 BUN/Creatinine Ratio 17.7 Glucose 91 Calcium 9.2 Magnesium 1.8 Total Bilirubin 0.3 AST 28 ALT 15 Alkaline Phosphatase 73 Total Protein 7.2 Albumin 3.4 L Globulin 3.8 Albumin/Globulin Ratio 0.9 L [facility] Social History household members: significant other Smoking Status: Unknown if ever smoked Assessment & Plan Assessment & Plan narrative: This is a 28 year old female with recently complex hospitalization who presented with worsening pleuritic left sided chest pain, along with recurrent pleural effusion, chills, and nausea. Suspect initial symptoms are related to opiate withdrawal, given negative infectious workup to this point. Will increase her opiates and non-opiates today in hopes of pain control and symptom control. The etiology for her left pleural effusion is likely reactive to her recent perisplenic abscess which appears resolved on imaging here. Will reassess fluid tomorrow with another radiograph to see if the fluid is reaccumulating. 1. left pleuritic chest pain and recurrent pleural effusion 2. acute opiate withdrawal 3. Recent ESBL intra-abdominal infection with perisplenic abscess, now improved. 4. Anxiety due to illness Plan: - Increase oxycontin to 40 mg BID, with 5-10 IR oxycodone prn and dilaudid to 1 mg IV. Needing IV diluadid today still. - continue antinauseal medications. - started 800 mg q8 scheduled ibuprofen, along with 300 mg TID gabapentin to attempt to use less opiate therapy. - symptom treatment with ativan for anxiety as needed - Pleural effusion appears per my evaluation today to be slightly improved to stable, given no hypoxia and improved pain recommend outpatient pulmonology consultation at this time, but may need re-assessment depending on her course here. - initial fluid studies LDH 182, 2522 RBC and 1535 nucleated cells. No serum LDH drawn at the time. Cultures from fluid are without growth thus far. No other studies sent. - stopped antibiotics, there does not appear to be evidence of active infection given procalcitonin negative, no fever, cultures are negative. Etiology likely reactive due to her recent perisplenic abscess. LOREN: pending optimization of pain control prior to discharge home. Hopefully home tomorrow. Full code Her boyfriend, yue is her only family locally. She was from [place], this is where her parents live. Time-Based Coding :: [TOTAL MINUTES] spent with patient and on the chart (including review of chart, obtaining history, exam, reviewing outside data, placing orders, documenting exam and treatment plan, and counseling patient) on [DATE]. Quality VTE Deep Vein Thrombosis/Pulmonary Embolism Present on Admission: No
[2024-03-27 20:00] VITALS: BP 108/75; PULSE 78; RESP 16; TEMP 36.8; O2SAT 94
[2024-03-27] MEDS: OXYCODONE ER 20 MG TAB 40 MG PO (21:02)
[2024-03-27] MEDS: LORazepam 1 MG TABLET PO (23:23)
[2024-03-28] MEDS: HYDROMORPHONE 2 MG INJ 1 MG IV (00:30)
[2024-03-28] MEDS: IBUPROFEN 400 MG TABLET 800 MG PO ×2 (06:21→15:19)
[2024-03-28] MEDS: OXYCODONE IR 5 MG TABLET 10 MG PO ×3 (06:22→15:19)
[2024-03-28 07:00] VITALS: BP 113/73; PULSE 102; RESP 18; TEMP 36.7; O2SAT 96
[2024-03-28] MEDS: OXYCODONE ER 20 MG TAB 40 MG PO ×2 (08:28→16:49)
[2024-03-28] MEDS: GABAPENTIN 300 MG CAPSULE PO ×2 (08:28→14:03)
[2024-03-28] MEDS: ACETAMINOPHEN 325 MG TABLET 650 MG PO ×2 (08:28→14:02)
[2024-03-28] MEDS: SODIUM CHLORIDE 0.9% FLUSH 10 ML IV (08:29)
[2024-03-28] MEDS: ONDANSETRON 4 MG/2 ML INJ IV (08:29)
--- NOTE | 2024-03-28 10:16 | PM.DS.1 ---
History of Present Illness History of Present Illness Date Patient Seen: 03/28/24 Time Patient Seen: 10:16 Chief complaint: surgery 02/11 nausea/vomitting, feels heart racing Narrative: From ED doctor: 28-year-old female with recent prolonged hospitalization coop feel for bowel obstruction and TPN antibiotics and multiple abscess drainage procedures, admitted there 02/11/2024, and states that she was hospitalized for 28 days, discharged, recalls having bowel obstruction left-sided, surgical excision, no cancer diagnosis, no colostomy/ostomy, apparently had splenic neck complication, development of abscess, drains that were placed then pulled, ertapenem antibiotic given during her hospital stay, PICC line was in place, antibiotic course was completed, PICC line removed for discharge. Patient seemed to be doing well the last week or so, slight residual left-sided abdominal discomfort, saw her surgeon yesterday for follow up, she was under the impression that further pain medication was to be prescribed, also was requesting antinausea medication. Last night had multiple episodes nonbloody emesis, last bowel movement unremarkable yesterday, no black or red stools. Increasing left-sided abdominal discomfort. Also recent cough, denies shortness of breath, denies chest pain. Denies frequency of urination, denies painful urination. Additional information: ED course: The patient underwent a diagnostic thoracentesis with a but 150 mL of clear fluid removed and sent for studies. The patient was admitted with fever, or leukocytosis. Her pain was not pleuritic. There was no evidence of pneumonia or abdominal abscess on her CT scan of the chest and abdomen. She was in the hospital and would be [place] about 5 [place] from the [facility] . She was diagnosed with a bowel obstruction and had a laparotomy with a limited bowel resection complicated by multiple abdominal abscesses which required percutaneous drains, extensive antibiotics, and TPN. She has been home for a little over a week has had persistent left-sided lower and upper quadrant abdomen pain, nausea, and anorexia. She denies any overt diarrhea, or rectal bleeding. She also denies any drainage from her incisional wounds. Her breathing has been fine, no dyspnea, orthopnea. No cough. Her fluid from thoracentesis was clear. Discharge Providers Provider Date of admission: 03/25/24 16:36 Discharge Date: 03/28/24 Primary care physician: MIGDALIA Pina Consults: 03/23/24 18:59 Consult to Dietitian, Adult Routine Comment: appetite. Reason For Exam: increased weight loose over last month, decreased 03/25/24 09:15 Consult to DIRECTOR OF FOOD AND NUTRITION SERVICES - Gyroscope Technician Routine Comment: Gyroscope Technician Consult needed for:: Other reason (Comment) Comment: no coping skills, states she has nowhere to go, high anxiety Discharge provider: Ramon Silva DO Summary Hospital Course Discharge Diagnosis: 1. left pleuritic chest pain and recurrent pleural effusion 2. acute opiate withdrawal 3. Recent ESBL intra-abdominal infection with perisplenic abscess, now improved. 4. Anxiety due to illness Hospital Course: Recap of admission at [facility] based on my review of discharge paperwork and primarily radiology documentation, culture data and labs. 02/10 - admission. CT showing LBO with stool. Lower lungs were normal appearing then. 02/11 - Surgery with colotomy, CT angio chest after surgery showing pleural fluid, no PE. 02/15 - perisplenic abscess, based on review she was possibly started on cefepime at this time. 02/21 - 9x11 abscess on repeat CT 02/22 - IR drain placement, unclear if cultures from this grew anything. 02/24 - thoracentesis 100 cc removed, do not see any evidence fluid was sent with labs or cultures based on available paperwork. 03/02- 2nd IR drainage of her abdomen as tube dislodged per patient. 03/03-started on meropenem for ESBL growing from cultures, unclear if this was from 02/22 or 03/02 drainage. 03/04- repeat CT showing increased pleural effusions, improved abscess. 03/09 - discharged home on 20 mg q4 hr prn oxycodone. 03/17 - patient completed ertapenem course at home This is a 28 year old female with recently complex hospitalization summarized above who presented with worsening pleuritic left sided chest pain, along with recurrent pleural effusion, chills, and nausea. Suspect initial symptoms were actually related to opiate withdrawal, given negative infectious workup including thoracentesis with negative cultures and that the patient had been running short on and rationing opiate therapy. The majority of her admission was focused on pain control. She continued to have pleuritic chest pain. Attempted oxycontin initially with too high of a dose, ultimately after titration she did better on 40 mg of oxycontin BID with 10 - 20 mg of PO oxycodone short acting as needed. Ideally this would be a bit better controlled, however the patient was adamant on going home on the day of discharge. Given her lack of respiratory symptoms and lack of hypoxia, improvement in nausea and vomiting and tolerance of a diet, she was discharged on 03/28/2024. Repeat CXR after thoracentesis showed a stable to slightly improved (based on my interpretation, as formal radiology read is still not complete) as well. For pain management, the patient was discharged on a taper of oxycontin which is to continue for 4 weeks to try and avoid opiate withdrawal. Oxycodone ER dose was 40 mg BID at the time of discharge. Recommend weekly decrease to try and avoid withdrawal symptoms in the near future. Taper starting at 40 mg BID with 10 mg decrease weekly was prescribed. Patient was concerned about the cost at discharge. Discussed other opitions including methadone or fentanyl patches which were cheaper but the patient declined trail of these medications. Patient was provided with a [employer] coupon for the extended release oxycodone and a written prescription. The etiology of her pain is likely inflammatory response due to her recent splenic abscess and pleural effusion (further discussed below) and this is antipated to improve but additional options are discussed below. Also started on scheduled ibuprofen, tylenol, and gabapentin to reduce opiate use. She was also given a refill of immediate release oxycodone for 1 week on discharge which ideally should last longer than a week if her pain is improving. We also discussed returning to short acting oxycodone only, however patient did not want to go through withdrawal again. With regards to her left sided pleural effusion, thoracentesis was performed. Fluid studies available show an LDH of 182, 2522 RBC and 1535 WBC. No serum LDH was drawn around the time of collection. Given fluid did not appear white chylothorax did not seem as likely. Fluid cultures were negative at the time of discharge. The etiology of this is likely reactive to her recent perisplenic abscess. She was initially on antibiotics on admission, but stopped after the above evaluation. After thoracentesis with approx 700 cc of fluid removed (yellow in appearance), repeat CXR a few days later was stable to slightly improved. Recommend continued follow up with PCP in the near term, as per review of case reports these pleural effusions are usually managed conservatively as they do resolve over time. However, should fluid be persistent an outpatient referral to pulmonology was made on discharge. I do recommend repeat assessment next week with PCP, and depending on symptoms at the time possible assessment of the effusion again with a chest radiograph. During her stay, the pad continued to demonstrate severe anxiety about her current illness. She seemed overwhelmed when discussing her illness at times, and others she did okay. She also has some misconceptions / reservations around fentanyl and methadone use leading to her decision to avoid fentanyl patch or methadone as above. Attempted to discuss these but she was not open to other therapies at this time. She was continued on short term lorazepam for ongoing anxiety reactive to her illness. Consider SSRI initiation with PCP, or possible referral to behavioral health as an outpatient depending on her symptoms at follow up. Time Spent with Patient Time spent: Greater than 30 minutes Exam Vital Signs (past 8 hours): - 03/28/24 07:00 Temperature 98.0 F Pulse Rate 102 H Respiratory Rate 18 Blood Pressure 113/73 Pulse Oximetry 96 Oxygen Flow Rate 0 Oxygen Delivery Method Room Air Oxygen Flow Rate 0 Narrative Exam Narrative: No acute distress, sitting upright, cross legged in bed. Moving around without discomfort. Objective Labs 03/27/24 05:17 03/27/24 05:17 [facility] Social History household members: significant other Smoking Status: Unknown if ever smoked Discharge Plan Discharge Plan Patient Disposition: Home Provider Discharge Comment: You were admitted to the hospital with recurrent lung effusion / fluid on the left and nausea/vomiting and pain. The fluid in your lung is due to an inflammatory process from your recent abscess and surgery. I have sent a referral to pulmonology today in case this fluid does not go away over time. Your nausea and vomiting was likely due to withdrawal from opiate pain medications. For this I have put you on a long acting pain medication which I will taper over about 4 weeks. For short acting relief continue 10 - 20 mg of oxycodone as needed. Also continue ibuprofen, tylenol, and gabapentin which are to help reduce the amount of opiates needed. Discharge orders & Medications Prescriptions: New acetaminophen 325 mg Tablet 650 mg PO Q6H Qty: 120 0RF ibuprofen 400 mg Tablet 800 mg PO Q8HR Qty: 180 0RF gabapentin 300 mg Capsule 300 mg PO TID 30 Days Qty: 90 0RF lorazepam 1 mg Tablet 1 mg PO Q4HR PRN (Reason: Anxiety) 7 Days Qty: 40 0RF oxycodone 20 mg tablet 20 mg PO Q4H PRN (Reason: pain) 7 Days Qty: 42 0RF ondansetron 4 mg tablet,disintegrating 4 mg PO Q8H PRN (Reason: nausea and vomiting) 10 Days Qty: 30 0RF oxycodone 10 mg tablet,oral only,ext.rel.12 hr See Rx Instructions .ROUTE .COMPLEX 28 Days Qty: 140 0RF Rx Instructions: Take 40 mg BID for 1 week, 30 mg BID for 1 week, 20 mg BID for 1 week, 10 mg BID for 1 week then stop. Discontinued clonidine HCl 0.1 mg tablet 0.1 mg PO BID Follow up/Referrals: Lala Jacobsen ARNP [Primary Care Provider] - 3-5 Days (Complex pain management, recent hospital discharge, referral to pulmonology placed on 03/28.) Other Ambulatory Orders: Referral to: (Schedule) Timeframe: 2 Weeks Location: Determined by Patient Ordered By: Ramon Silva Diet/Activity/Treatments Diet: Diet as Tolerated and Regular Activity: As tolerated, no restrictions. Visit Report/Discharge Packet Stand Alone Forms: Patient Portal/API, Stroke Signs & Symptoms Discharge Data Primary Care Provider: Lala Jacobsen Quality VTE Deep Vein Thrombosis/Pulmonary Embolism Present on Admission: No
--- NOTE | 2024-03-28 10:35 | CM.DPNOTE ---
Addendum entered by LEIA Martinez 03/28/24 14:01: per provider, issues with getting pt's script filled due to ins concerns. assisted provider to best of ability by finding/sending completed expedited prior auth forms, calling pt's ins, and local pharmacy's. [facility] appears to be the best cost financially. MORTICIAN HELPER met with pt in room. gave her her ins numbers, no card available at this time. pt appreciative. pt reports can meet the $200 cost of the oxy script. denies further questions or needs at this time. SL Original Note: DCP Note MORTICIAN HELPER reviewed EMR. Per provider in morning rounds, plan to dc today with oxy taper and close OP f/u. per notes, previously established care with MIGDALIA Pina. per provider, also made an OP pulmonology referral. MORTICIAN HELPER met with pt in room. pt denies any CM/DCP needs at this time, eager to dc home. P: anticipate dc home with OP f/u today. Partner [facility] to transport. no identified DCP needs at this time. ELIA Martinez
--- NOTE | 2024-03-28 17:49 | PC.NURSE ---
Pt discharged home at 1700, ambulated off floor accompanied by significant other and hospital staff. IV removed, discharge teaching completed including new medications, worsening symptoms and follow up appointments. Taper schedule for oxycontin extensively reviewed with patient by both Dr. Silva and this nurse. Questions answered and concerns addressed. Pt left the floor with all belongings.
== END 2024-03-28 17:00 | disposition home or self-care (01) | DRG 143 ==
LOC: ED 17:58 → AC 17:59
PROVIDERS: Internal Medicine; Admitting Provider Hospitalist; Emergency Provider Emergency Medicine; PCP Registered Nurse; Visit Provider Hospitalist
DX: J90 Pleural effusion, not elsewhere classified (principal); J98.11 Atelectasis; R00.0 Tachycardia, unspecified; F41.9 Anxiety disorder, unspecified; E86.9 Volume depletion, unspecified; F11.23 Opioid dependence with withdrawal; Z87.19 Personal history of other diseases of the digestive system; Z98.890 Other specified postprocedural states
CPT/HCPCS: 32555; 36415; 71045; 71046; 71275; 74177; 76604; 80048; 80053; 81003; 81015; 81025; 82962; 83605; 83690; 83735; 84145; 85025; 85610; 85730; 86140; 87040; 87070; 87075; 87086; 87205; 87633; 89051; 93005; 96361; 96365; 96375; 96376; 99284; 99291; G0378; J0696; J1171; J2060; J2405; J2543; J2765; Q9967

== ENCOUNTER 2024-04-04 11:32 | Observation (INO) | payer OTHER, MEDICAID, SELFPAY ==
[2024-03-23 18:42] VITALS: BMI 22.5
[2024-04-04] VITALS (19 sets, daily range): BP systolic 103–120; BP diastolic 72–86; PULSE 101–156; RESP 13–23; TEMP 36.5–36.9; O2SAT 81–99; BMI 20.3
--- NOTE | 2024-04-04 11:46 | DI.RAD.S_ITS ---
PROCEDURE: XR CHEST 1V INDICATIONS: suspected sepsis TECHNIQUE: One view of the chest was acquired. COMPARISON: [facility], CR, XR CHEST 2V, 03/26/2024, 8:12. FINDINGS: Surgical changes and devices: None. Lungs and pleura: Linear atelectasis in left midlung field is seen. Blunting of left costophrenic angle is seen suggestive of trace left pleural effusion. No definite focal infiltrate. No pneumothorax. Mediastinum: Mediastinal contours appear normal. Heart size is normal. Bones and chest wall: No suspicious bony lesions. Overlying soft tissues appear unremarkable. IMPRESSION: Linear atelectasis in left mid to lower lung field and trace left pleural effusion. No focal infiltrate or pneumothorax. Dictated by: Manish Cancino M.D. on 04/04/2024 at 12:39 Approved by: Manish Cancino M.D. on 04/04/2024 at 12:40
--- NOTE | 2024-04-04 11:49 | ED.GENADULT ---
HPI - General Adult General Chief complaint: Urogenital-Female Stated complaint: blood in urine, diff breathing, pain Time Seen by Provider: 04/04/24 11:48 Source: patient, RN notes reviewed and old records reviewed Mode of arrival: Ambulatory Limitations: no limitations History of Present Illness HPI narrative: 28-year-old female with recent hospitalizations when it [facility] for 28 days for bowel obstruction she had an ex lap, TPN, antibiotics and multiple abscess drainage procedures at [facility] then developed a pleural effusion on the left and was admitted and had thoracentesis here at [facility] from 03/23 through 03/28 was discharged home with antiemetics and pain management. Patient presents with concern for UTI she describes dysuria urgency frequency some suprapubic pain. She states she does have persistent abdominal pain not quite as intense as before but still present. She denies any back or flank pain. No fevers. She has had some chest discomfort states little bit on the left side. She states she has felt a little bit more short of breath. States it feels somewhat similar to when she had her pleural effusion but does not know if it is back or not. She has had nausea, she has been taking Zofran. She has not had any vomiting. She has been tolerating solids but eating minimally. She states fluids have not been an issue. She states she has had bowel movements but recently had diarrhea in the last 24 hours. No reports of black or bloody stools. No syncope. Patient states she is currently on Zofran, pain management she states longer acting medication is on order from the pharmacy so she was taking the short-acting medication. Patient states remotely had an appendectomy otherwise had no other abdominal surgeries besides her procedures at [facility]. States her incisions seem to be healing well. Allergies to Flexeril and promethazine. No tobacco, alcohol or recreational drugs. Related Data Previous Rx's Medication Instructions Recorded gabapentin 300 mg capsule 300 mg PO TID 30 days #90 caps 03/28/24 ibuprofen 400 mg tablet 800 mg (2 x 400 mg) PO Q8HR #180 03/28/24 tabs ondansetron 4 mg disintegrating 4 mg PO Q8H PRN nausea and 03/28/24 tablet vomiting 10 days #30 tabs oxycodone 10 mg tablet,crush See Rx Instructions .Route 12/01/24 resistant,extended release 12 hr .COMPLEX 28 days #140 tabs Allergies Allergy/AdvReac Type Severity Reaction Status Date / Time cyclobenzaprine Allergy Verified 03/23/24 09:29 [From Flexeril] promethazine [From Phenergan] Allergy Verified 03/23/24 09:29 Review of Systems Review of Systems ROS Unobtainable: All systems reviewed & are unremarkable except as noted in HPI and below Patient History Social History household members: significant other Smoking Status: Unknown if ever smoked alcohol intake: never Smoking Status: Unknown if ever smoked alcohol intake frequency: holidays/special occasions only Exam Narrative Exam Narrative: GENERAL: Alert and oriented x three, thin female in moderate distress. Patient is tearful she was describes feeling pretty anxious about her recent hospitalization still. HEENT: Head normocephalic, atraumatic, EOMI, pupils reactive, face symmetric, moist mucous membranes NECK: Supple, full range of motion CARDIOVASCULAR: Tachycardic but regular rate and rhythm without murmurs, rubs or gallops. No JVD. No edema bilaterally. RESPIRATORY: Breath sounds equal bilaterally, slightly decreased in the base, no wheezes rales or rhonchi. No tachypnea accessory muscle use. Patient able to speak in full sentences. ABDOMEN: Soft, generalized tenderness little bit greater on the left. Patient's incisions are clean dry and intact. Normoactive bowel sounds all 4 quadrants. No guarding or rebound, rigidity, no mass : No CVA tenderness EXTREMITIES: Normal range of motion, no clubbing or edema. Neurovascularly intact NEUROLOGICAL: Cranial nerves II through XII grossly intact. Moving all extremities SKIN: Warm, dry, no petechiae, no rashes or lesions. Initial Vital Signs Initial Vital Signs: Vital Signs Temperature 98.4 F 04/04/24 11:35 Pulse Rate 155 H 04/04/24 11:35 Respiratory Rate 22 04/04/24 11:35 Blood Pressure 105/72 04/04/24 11:35 Pulse Oximetry 97 04/04/24 11:35 Oxygen Delivery Method Room Air 04/04/24 11:35 Course Orders Ordered: ED Orders 04/04/24 11:46 XR chest 1V Stat EKG-12 Lead Stat RT Consult Eval and Treat NOW 04/04/24 11:55 BNP [NT-proBNP (BNP-Adult 18+)] Stat Complete Blood Count AUTO DIFF Stat Comprehensive Metabolic Panel Stat Lactate (Lactic Acid) Stat Lipase Stat PTT Partial Thromboplastin Faustino Stat Procalcitonin Stat Prothrombin Time INR Stat Troponin & CK Cardiac Panel Stat 04/04/24 12:00 Blood Culture Stat 04/04/24 12:10 CT abdomen pelvis w con Stat CT angio chest PE protocol Stat 04/04/24 12:22 UA Complete [Urinalysis and Microscopic] Stat Urine Culture Stat Acetaminophen (Acetaminophen 325 Mg Tablet) 650 mg PO Q6H PRN PRN Reason: Fever/Mild Pain (1-3) Apixaban (Apixaban 5 Mg Tablet) 10 mg PO BID [facility] Stop: 04/11/24 09:01 Gabapentin (Gabapentin 300 Mg Capsule) 300 mg PO TID [facility] Hydromorphone HCl (Hydromorphone 0.5 Mg Inj) 0.5 mg IV Q2H PRN PRN Reason: Pain, Severe (7-10) Last Admin: 04/04/24 17:11 Dose: 0.5 mg Documented By: JOSE Sodium Chloride (Normal Saline 0.45%) 1,000 mls @ 100 mls/hr IV CONT [facility] Last Admin: 04/04/24 17:11 Dose: 100 mls/hr Documented By: JOSE Ceftriaxone Sodium 1,000 mg/ (Sodium Chloride) 100 mls @ 200 mls/hr IV Q24H [facility] Last Infusion: 04/04/24 17:32 Dose: 0 mls/hr Documented By: Admin: 04/04/24 17:12 Dose: 200 mls/hr Documented By: JOSE Naloxone HCl (Naloxone 0.4 Mg/Ml Vial) 0.2 mg IV Q2MIN PRN PRN Reason: Opiate Reversal Ondansetron HCl (Ondansetron 4 Mg/2 Ml Inj) 4 mg IV Q8HR PRN PRN Reason: Nausea And Vomiting Oxycodone HCl (Oxycodone Er 20 Mg Tab) 40 mg PO BID [facility] Discontinued Medications Enoxaparin Sodium (Enoxaparin 60 Mg/0.6 Ml Syringe) 60 mg SUBCUT NOW ONE Stop: 04/04/24 14:46 Last Admin: 04/04/24 14:56 Dose: 60 mg Documented By: WILMAN Fentanyl (Fentanyl 100 Mcg/2 Ml Inj) 25 mcg IV NOW ONE Stop: 04/04/24 12:00 Last Admin: 04/04/24 12:11 Dose: 25 mcg Documented By: Heparin Sodium (Porcine) (Heparin 5,000 Unit/Ml Vial) 4,500 unit 80 unit/kg (4500 unit) IV NOW ONE Stop: 04/04/24 14:29 Last Admin: 04/04/24 14:51 Dose: Not Given Documented By: WILMAN Sodium Chloride (Normal Saline 0.9%) 1,000 mls @ 1,000 mls/hr IV BOLUS ONE Stop: 04/04/24 12:45 Last Infusion: 04/04/24 13:25 Dose: Infused Documented By: Admin: 04/04/24 12:01 Dose: 1,000 mls/hr Documented By: SANTOSH Piperacillin Sod/Tazobactam (Sod 4.5 gm/ Sodium Chloride) 100 mls @ 200 mls/hr IV NOW ONE Stop: 04/04/24 12:12 Last Infusion: 04/04/24 13:25 Dose: Infused Documented By: Admin: 04/04/24 12:46 Dose: 200 mls/hr Documented By: Heparin Sodium/Dextrose (Heparin Drip) 25,000 unit in 500 mls @ 21.226 mls/hr IV CONT CRISTI; Protocol Last Admin: 04/04/24 14:51 Dose: Not Given Documented By: WILMAN Lorazepam (Lorazepam 1 Mg Tablet) 1 mg PO NOW ONE Stop: 04/04/24 14:52 Last Admin: 04/04/24 14:56 Dose: 1 mg Documented By: WILMAN Ondansetron HCl (Ondansetron 4 Mg/2 Ml Inj) 4 mg IV NOW PRN PRN Reason: Nausea And Vomiting Ondansetron HCl (Ondansetron 4 Mg Odt) 4 mg SL NOW PRN PRN Reason: Nausea And Vomiting Ondansetron HCl (Ondansetron 4 Mg/2 Ml Inj) 4 mg IV NOW ONE Stop: 04/04/24 12:00 Last Admin: 04/04/24 12:12 Dose: 4 mg Documented By: Vital Signs Vital signs: Vital Signs - 8 hr 04/04/24 11:35 04/04/24 12:55 04/04/24 13:00 Temperature 98.4 F Pulse Rate 155 H 119 H 115 H Respiratory Rate 22 17 14 Blood Pressure 105/72 Pulse Oximetry 97 94 94 Oxygen Delivery Method Room Air 04/04/24 13:30 04/04/24 14:00 04/04/24 14:34 Temperature Pulse Rate 113 H 117 H 156 H Respiratory Rate 14 17 21 Blood Pressure Pulse Oximetry 92 93 Oxygen Delivery Method Medical Decision Making Lab Data 04/04/24 11:55 04/04/24 11:55 Labs: Lab Results 04/04/24 04/04/24 Range/Units 11:55 12:22 WBC 11.5 H (4.5-11.0) X10^3/uL RBC 4.47 (4.0-5.2) X10^6/uL Hgb 12.5 (12.0-16.0) g/dL Hct 39.0 (36-46) % MCV 87.1 (80-100) fL MCH 28.0 (26-34) PG MCHC 32.1 (30-36) % RDW 14.9 H (11.6-14.8) % Plt Count 416 H (150-400) X10^3/uL Neut % (Auto) 68.2 (50-75) % Lymph % (Auto) 23.2 L (25-40) % [place] % (Auto) 6.1 (3-14) % Eos % (Auto) 2.1 (2-4) % Baso % (Auto) 0.4 (0-2) % Neut # (Auto) 7800 H (7044-6894) /uL Lymph # (Auto) 2700 (3217-1603) /uL [place] # (Auto) 700 (0-900) /uL Eos # (Auto) 200 (0-450) /uL Baso # (Auto) 0 (0-100) /uL PT 12.7 H (9.4-12.5) SECONDS INR 1.1 (0.9-1.3) APTT 40 H (25.1-36.5) SECONDS Sodium 137 (137-145) mmol/L Potassium 4.0 (3.4-5.1) mmol/L Chloride 104 (98-107) mmol/L Carbon Dioxide 22 (22-32) mmol/L BUN 9 (7-17) mg/dL Creatinine 0.58 (0.52-1.04) mg/dL Estimated GFR > 60 (>60) mL/min BUN/Creatinine Ratio 15.5 (6-22) Glucose 133 H (70-100) mg/dL Lactate 0.9 (0.7-2.1) mmol/L Calcium 9.9 (8.4-10.2) mg/dL Total Bilirubin 0.6 (0.2-1.3) mg/dL AST 31 (14-36) IU/L ALT 20 (<35) IU/L Alkaline Phosphatase 92 (38-126) U/L Total Creatine Kinase 21 L (30-135) U/L Troponin I < 0.012 (0.01-0.034) ng/mL NT-Pro-B Natriuret Pep 203 H (<125) pg/mL Total Protein 8.9 H (6.3-8.2) g/dL Albumin 4.4 (3.5-5.0) g/dL Globulin 4.5 H (1.7-4.1) g/dL Albumin/Globulin Ratio 1.0 (1.0-2.8) Lipase 100 (23-300) U/L Procalcitonin 0.047 (<0.5) ng/mL Urine Color [place] Urine Appearance Cloudy Urine pH 5 (4.5-8.0) Ur Specific [place] TNP Urine Protein TNP Urine Glucose (UA) TNP Urine Ketones TNP Urine Occult Blood TNP Urine Nitrate TNP Urine Bilirubin TNP Urine Urobilinogen TNP Ur Leukocyte Esterase TNP Urine RBC 5-10/hpf H (0-5/HPF) Urine WBC 30-100/hpf H (0-5/HPF) Ur Squamous Epith Cells None seen (0-5/HPF) Calcium Oxalate Crystal Few H Urine Bacteria Moderate (10-30) H (None) Ur Culture Indicated? Specimen cultured Vol Urine Centrifuged 10ml (spun) Point of Care Testing Test Results Negative Point of care testing: Point of Care Testing Test Results Negative Imaging Data Chest x-ray: My Impression: no effusion, no pneumothorax. Radiologist's Impression: Close Chest X-Ray (Signed) Manish Cancino - 04/04/24 Chest X-Ray 03/26/24 Thoracentesis/Paracentesis US (Signed) Manish Canicno - 03/24/24 Chest X-Ray (Signed) Manish Cancino - 03/24/24 Chest X-Ray (Signed) Manish Cancino - 03/23/24 Chest Ultrasound (Signed) Manish Cancino - 03/23/24 Abdomen/Pelvis CT (Signed) Manish Cancino - 03/23/24 Chest CTA (Signed) Manish Cancino - 03/23/24 Chest X-Ray (Signed) Manish Cancino - 03/23/24 Launch?Image [address] [address] XRay Report Signed Patient: Zena Hawley MR#: [id number] : 1995 Acct:[id number] Age/Sex: 28 / F Date of Service: 04/04/24 Loc: ED Accession Number: [id number] Procedure: XR chest 1V Ordering Provider: Abi Montalvo D.O. PROCEDURE: XR CHEST 1V INDICATIONS: suspected sepsis TECHNIQUE: One view of the chest was acquired. COMPARISON: [facility], , XR CHEST 2V, 03/26/2024, 8:12. FINDINGS: Surgical changes and devices: None. Lungs and pleura: Linear atelectasis in left midlung field is seen. Blunting of left costophrenic angle is seen suggestive of trace left pleural effusion. No definite focal infiltrate. No pneumothorax. Mediastinum: Mediastinal contours appear normal. Heart size is normal. Bones and chest wall: No suspicious bony lesions. Overlying soft tissues appear unremarkable. IMPRESSION: Linear atelectasis in left mid to lower lung field and trace left pleural effusion. No focal infiltrate or pneumothorax. Dictated by: Manish Cancino M.D. on 04/04/2024 at 12:39 Approved by: Manish Cancino M.D. on 04/04/2024 at 12:40 ECG Data Attestation: I personally reviewed and interpreted this ECG as follows: Prior ECG tracings: available for review Interpretation: Sinus tachycardia rate of 149, HI 112 QRS 88 QTC of 425, no acute ST elevation patient has RSR in V1 and V2. Patient has prior from 03/23/2024 which appears similar to today's. MDM Narrative Medical decision making narrative: 28-year-old female recent significant hospitalization for bowel obstruction, abdominal abscesses with recurrent procedures and ultimately ex lap patient was hospitalized for approximately 5 weeks at an outside facility and then seen here for 5 days and discharged on the 28 of March for pleural effusion which patient did have a thoracentesis. Patient's main concern today she would she might have a UTI she does urinary symptoms of dysuria urgency frequency. She was tachycardic and hypotensive. She was over well-appearing but tearful secondary to being anxious and stressed about her last hospitalizations. She does note some persistent pain in her abdomen but states it has been overall improving. She also notes a little bit of chest discomfort and shortness of breath states she is unsure if her pleural effusion might have returned. Did review patient's chart her systolic blood pressure appears to range between 100 and 100 and send systolic normally during prior her hospital stay here. Patient's white count is 11.5 hemoglobin of 12.5 platelets are 416, white count is increased from her hospitalization here. INR 1.1 PTT of 40. Electrolytes are appropriate CO2 is 22 BUN 9 creatinine 0.58 glucose is 133 lactate 0.9 calcium is 9.9- LFTs CK is 21 with a troponin less than 0.012 and a BNP of 203 total protein is 8.9 with a globulin of 4.5, lipase of 100 and procalcitonin 0.047 Urine patient has been on azo but shows 5-10 red cells 3200 white cells no squamous few calcium oxalate crystals moderate bacteria was sent for culture. EKG shows sinus tach similar to 03/23/2024. Prelim review of chest x-ray shows no recurrent pleural effusion, no pneumothorax, no significant pneumonia appreciated. Formal report shows linear atelectasis left mid lung field blunting unless costophrenic angles seen suggesting trace left pleural effusion no definite focal infiltrate or pneumothorax. CT chest PE protocol, right-sided segmental subsegmental pulmonary emboli without evidence of right heart strain moderate left pleural effusion has improved in the interval. CT abdomen pelvis with contrast proximal small bowel thickening enhancement may reflect ileus or enteritis no evidence of obstruction anastomosis right lower quadrant intact no abscess or free air splenic probable infarct stable from prior. Patient does meet septic criteria started on fluids, given a dose of IV antibiotics. Patient's differential includes recurrent intra-abdominal infection, UTI urosepsis, recurrent pleural effusion, pulmonary emboli versus other. Patient's initial chest x-ray did not show any major changes so CT chest PE protocol was obtained along with CT abdomen and pelvis. Patient's white count has trended up from her most recent hospitalization. Her hemoglobin appears stable. Platelets are actually trended down words but still slightly elevated. Patient received fluids, antibiotics, anti emetics and pain medication. Patient was also given Lovenox pulmonary embolism. Patient's labs show trending upward white count but overall appropriate labs urine is consistent with infection. Patient was tachycardic could be consistent with sepsis suspect this is more cardiac driven. Patient did not have any right strain currently but would not give a full 30 cc/kilos bolus as this can sometimes increase issues with pulmonary emboli. PESI score 80 points, class 2 low risk. Based on patients imaging findings she does not appear to be an interventional candidate. Reviewed all findings with patient. Patient continues to be tachycardic and some improvement. She was very tearful when we review her findings from today. Discussed we would like to keep her for anticoagulation and echo. Patient is agreeable. Spoke with Dr. Bernstein, hospitalist for observation as patient's PESI score 80 points does not appear to be candidate for intervention but would like to keep she has had pretty significant medical complications recently. Discussed heparin versus Lovenox. He asked that we give a dose of Lovenox here in the department. Discharge Plan Departure Patient Disposition: Admitted as Observation Clinical Impression: Pulmonary embolism, Tachycardia, UTI (urinary tract infection) Admit Date/Time: 04/04/24 14:36 Admit Provider: Sohail Bernstein V
[2024-04-04] MEDS: SODIUM CHLORIDE 0.9% 1,000 ML 1000 ML IV (12:01)
--- NOTE | 2024-04-04 12:03 | EKG_ITS ---
[facility] [address] [place] [address] Test Date: 2024-04-04 Pat Name: Zena Hawley Department: [facility] Room: Gender: Female [employer]ist: [employer] : 1995 Requested By: Order Number: [id number] Reading MD: Lamont Fenton MD Measurements Intervals [place] Rate: 149 P: 62 CT: 112 QRS: -1 QRSD: 88 T: 33 QT: 270 QTc: 425 Interpretive Statements Critical Test Result: High HR Sinus tachycardia Possible Left atrial enlargement Electronically Signed On 04-04-2024 17:07:32 PST by Lamont Fenton MD
[2024-04-04 12:07] LABS: Add Manual Diff / Slide Review NO; Basophils Absolute Auto 0 /uL (0-100); Basophils Percent Auto 0.4 % (0-2); Eosinophils Absolute Auto 200 /uL (0-450); Eosinophils Percent Auto 2.1 % (2-4); Hemoglobin 12.5 g/dL (12.0-16.0); Lymphocytes Absolute Auto 2700 /uL (1100-4500); Lymphocytes Percent Auto 23.2 % (25-40); Mean Corpuscular HGB Conc 32.1 % (30-36); Mean Corpuscular Volume 87.1 fL (80-100); Monocytes Absolute Auto 700 /uL (0-900); Monocytes Percent Auto 6.1 % (3-14); Neutrophils Absolute Auto 7800 /uL (1500-7000); Neutrophils Percent Auto 68.2 % (50-75); Platelet Count 416 X10^3/uL (150-400); Red Blood Cell Count 4.47 X10^6/uL (4.0-5.2); Red Cell Distribution Width 14.9 % (11.6-14.8); White Blood Cell Count 11.5 X10^3/uL (4.5-11.0)
--- NOTE | 2024-04-04 12:10 | DI.CT.S_ITS ---
PROCEDURE: CT ANGIO CHEST PE PROTOCOL INDICATIONS: r/o pe chest discomfort, tachy, had thoracentesis march TECHNIQUE: After the administration of intravenous contrast, 2 mm thick sections acquired from the pulmonary apices to the posterior costophrenic angles. MIP reformats of the arterial vasculature were utilized. For radiation dose reduction, the following was used: automated exposure control, adjustment of mA and/or kV according to patient size. COMPARISON: [facility], CT, CT ANGIO CHEST PE PROTOCOL, 03/23/2024, 10:45. FINDINGS: Cardiovascular: Heart size is normal. Right-sided segmental and subsegmental filling defects in the pulmonary arteries consistent with pulmonary emboli. No evidence of right heart strain. Lungs and Pleura: Moderate left pleural effusion has improved in the interval. Stable 6 mm nodule in the apical segment of the right lower lobe image 6/129 Mediastinum: The thyroid is unremarkable. No hiatal hernia. Lymph nodes: No mediastinal, hilar or axillary adenopathy. Bones and Chest Wall: Unremarkable. No acute fracture. Upper Abdomen: No significant abnormality present. IMPRESSION: Right-sided segmental and subsegmental pulmonary emboli without evidence of right heart strain. Moderate left pleural effusion has improved in the interval. Approved by: Margarito Weems M.D. on 04/04/2024 at 13:15
--- NOTE | 2024-04-04 12:10 | DI.CT.S_ITS ---
PROCEDURE: CT ABDOMEN PELVIS W CON INDICATIONS: r/o pe chest discomfort, tachy, SBO w/ exlap 03/21, thorac TECHNIQUE: After the administration of intravenous contrast, axial sections acquired from the lung bases to the pubic symphysis. Coronal and sagittal reformats were performed. For radiation dose reduction, the following was used: automated exposure control, adjustment of mA and/or kV according to patient size. COMPARISON: [facility], CT, CT ABDOMEN PELVIS W CON, 03/23/2024, 10:45. FINDINGS: Lower thorax: Moderate left pleural effusion has improved from the prior. Liver: Normal in size and attenuation. No contour deformity present. Biliary system: No calcified cholelithiasis or pericholecystic inflammation. No intra or extrahepatic bile duct dilatation. Pancreas: Unremarkable without mass or inflammation evident. Spleen: Wedge-shaped hypodensity in the spleen consistent with splenic infarct, also similar Adrenals: Normal morphology and density. Reproductive system: Unremarkable as visualized. Urinary system: Normal renal size and attenuation. No renal calculi, hydronephrosis, or solid mass present. Urinary bladder unremarkable. Gastrointestinal system: Proximal small bowel wall thickening and enhancement present without evidence of obstruction. No free air free fluid Bowel anastomosis in the right lower quadrant without evidence of dehiscence or abscess. Appendix: No findings to suggest acute appendicitis. Peritoneal spaces: No mesenteric or retroperitoneal adenopathy. No free air. No free fluid. Vasculature: The IVC, aorta and iliac vasculature are unremarkable. Abdominal wall: Ventral incision site well healed. Musculoskeletal: Normal bone mineralization. No acute fractures. IMPRESSION: Proximal small bowel wall thickening and enhancement may reflect ileus or enteritis. No evidence of obstruction. Anastomosis in the right lower quadrant intact. No abscess or free air. 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 on 04/04/2024 at 13:20
[2024-04-04] MEDS: fentaNYL 100 MCG/2 ML INJ 25 MCG IV (12:11)
[2024-04-04] MEDS: ONDANSETRON 4 MG/2 ML INJ IV ×2 (12:12→20:26)
[2024-04-04 12:14] LABS: INR 1.1 (0.9-1.3); Prothrombin Time 12.7 SECONDS (9.4-12.5)
[2024-04-04 12:16] LABS: PTT Partial Thromboplastin Tim 40 SECONDS (25.1-36.5)
[2024-04-04 12:17] LABS: Lactate (Lactic Acid) 0.9 mmol/L (0.7-2.1)
[2024-04-04 12:18] LABS: Alanine Aminotransferase 20 IU/L (<35); Albumin 4.4 g/dL (3.5-5.0); Alkaline Phosphatase 92 U/L (38-126); Aspartate Aminotransferase 31 IU/L (14-36); BUN Creatinine Ratio 15.5 (6-22); Bilirubin Total 0.6 mg/dL (0.2-1.3); Blood Urea Nitrogen 9 mg/dL (7-17); Calcium 9.9 mg/dL (8.4-10.2); Carbon Dioxide 22 mmol/L (22-32); Chloride 104 mmol/L (98-107); Creatine Kinase 21 U/L (30-135); Estimated Glomerular Filt Rate > 60 mL/min (>60); Globulin 4.5 g/dL (1.7-4.1); Glucose 133 mg/dL (70-100); HEMOLYSIS < 15 (0-50); Lipase 100 U/L (23-300); Sodium 137 mmol/L (137-145); Total Protein 8.9 g/dL (6.3-8.2)
[2024-04-04 12:30] LABS: NT-proBNP (BNP-Adult 18+) 203 pg/mL (<125); Troponin I < 0.012 ng/mL (0.01-0.034)
[2024-04-04 12:35] LABS: Procalcitonin 0.047 ng/mL (<0.5)
[2024-04-04 12:40] LABS: Appearance Urine UA CLOUDY; Color Urine UA Orange; pH Urine UA 5 (4.5-8.0)
[2024-04-04 12:43] LABS: Urine Volume 10mL (spun)
[2024-04-04 12:44] LABS: Bacteria Urine Moderate (10-30); Calcium Oxalate Crystals Urine Few; RBC Urine 5-10/HPF (0-5/HPF); Squamous Epithelial Cell Urine None Seen (0-5/HPF); WBC Urine 30-100/HPF (0-5/HPF)
[2024-04-04 12:45] LABS: Culture Indicated Urine Specimen Cultured
[2024-04-04] MEDS: PIPERACILLIN/TAZO 4.5 GM in SODIUM CHLORIDE 0.9% 100 ML IV (12:46)
[2024-04-04] MEDS: ENOXAPARIN 60 MG/0.6 ML SYRINGE SUBCUT (14:56)
[2024-04-04] MEDS: LORazepam 1 MG TABLET PO ×2 (14:56→23:26)
--- NOTE | 2024-04-04 15:40 | PM.HP.1 ---
History of Present Illness History of Present Illness Date Patient Seen: 04/04/24 Time Patient Seen: 16:10 Date of Onset of Symptoms: 04/04/24 Chief complaint: blood in urine, diff breathing, pain Narrative: 28-year-old woman under the primary care of MIGDALIA Pina presented to the emergency department due to dysuria, hematuria, abdominal pain and difficulty breathing. Recent records reviewed including extensive hospitalization at [facility] for 28 days for bowel obstruction, status post exploratory laparotomy, TPN, antibiotics and multiple abscess drainage procedures complicated by ESBL infection, left pleural effusion, status post thoracentesis at this hospital on hospitalization 03/23 through 03/28. She feels she had been recuperating well though was experiencing complications of opioid therapy, and was on an outpatient opioid taper. She was found to have right-sided pulmonary emboli on emergency department evaluation by CT angiography. She denies any right-sided chest pain, noting her pain is in her left chest and abdomen, worse with deep inspiration, and denies lower extremity edema or pain. She was mildly tachycardic and met sepsis criteria, given a dose of IV Zosyn, and admitted for further management and evaluation. She is very upset and anxious about this hospitalization, noting she has been dealing with considerable anxiety after a recent complicated medical course, describing herself as very healthy and fit prior to these difficulties. Urine test reportedly negative in ED. [facility] Social History household members: significant other Smoking Status: Unknown if ever smoked Meds Home Medications and Allergies Home Medications Medication Instructions Recorded Confirmed Type gabapentin 300 mg capsule 300 mg PO TID 30 days #90 caps 03/28/24 04/04/24 Rx ibuprofen 400 mg tablet 800 mg (2 x 400 mg) PO Q8HR #180 03/28/24 04/04/24 Rx tabs ondansetron 4 mg disintegrating 4 mg PO Q8H PRN nausea and 03/28/24 04/04/24 Rx tablet vomiting 10 days #30 tabs oxycodone 10 mg tablet,crush See Rx Instructions .Route 03/28/24 04/04/24 Rx resistant,extended release 12 hr .COMPLEX 28 days #140 tabs Allergies Allergy/AdvReac Type Severity Reaction Status Date / Time cyclobenzaprine Allergy Verified 03/23/24 09:29 [From Flexeril] promethazine [From Phenergan] Allergy Verified 03/23/24 09:29 Review of Systems Review of Systems ROS: Yes All systems reviewed with the patient and are negative except as otherwise documented Exam Vital Signs (past 8 hours): - 04/04/24 11:35 04/04/24 12:55 04/04/24 13:00 Temperature 98.4 F Pulse Rate 155 H 119 H 115 H Respiratory Rate 22 17 14 Blood Pressure 105/72 Pulse Oximetry 97 94 94 Oxygen Delivery Method Room Air 04/04/24 13:30 04/04/24 14:00 04/04/24 14:34 Temperature Pulse Rate 113 H 117 H 156 H Respiratory Rate 14 17 21 Blood Pressure Pulse Oximetry 92 93 Oxygen Delivery Method Oxygen Delivery Method Room Air Narrative Exam Narrative: GENERAL: This is a well-nourished, well-developed patient, in no apparent distress. HEAD: Atraumatic. Normocephalic. No temporal or scalp tenderness. EYES: Pupils equal round and reactive. Extraocular motions intact. No scleral icterus. No injection or drainage. ENT: Mucous membranes pink and moist. NECK: Trachea midline. No JVD, bruits or lymphadenopathy. Supple, nontender, no meningeal signs. CARDIOVASCULAR: Regular tachycardic rhythm without murmurs, gallops, or rubs. RESPIRATORY: Clear to auscultation. GASTROINTESTINAL: Abdomen soft, mild left-sided and suprapubic tenderness, nondistended. EXTREMITIES: No clubbing, cyanosis, or edema. BACK: Nontender without deformity or crepitance. No flank tenderness. NEUROLOGIC: Alert, oriented, speech fluent, full upper and lower motor strength, no focal deficits evident. DERMATOLOGIC: No rashes or skin lesions. Objective ECG Impression: Sinus tachycardia 149 beats per minute, no ischemic changes Imaging CT angiogram chest:: Radiologist's impression: Right-sided segmental and subsegmental pulmonary emboli without evidence of right heart strain. Moderate left pleural effusion has improved in the interval. CT abdomen and pelvis with contrast:: Radiologist's impression: Proximal small bowel wall thickening and enhancement may reflect ileus or enteritis. No evidence of obstruction. Anastomosis in the right lower quadrant intact. No abscess or free air. Splenic probable infarct, stable from the prior Chest x-ray: Radiologist's impression: Linear atelectasis in left mid to lower lung field and trace left pleural effusion. No focal infiltrate or pneumothorax. Labs 04/04/24 11:55 04/04/24 11:55 Labs: Laboratory Results - last 24 hr 04/04/24 04/04/24 11:55 12:22 WBC 11.5 H RBC 4.47 Hgb 12.5 Hct 39.0 MCV 87.1 MCH 28.0 MCHC 32.1 RDW 14.9 H Plt Count 416 H Neut % (Auto) 68.2 Lymph % (Auto) 23.2 L [place] % (Auto) 6.1 Eos % (Auto) 2.1 Baso % (Auto) 0.4 Neut # (Auto) 7800 H Lymph # (Auto) 2700 [place] # (Auto) 700 Eos # (Auto) 200 Baso # (Auto) 0 PT 12.7 H INR 1.1 APTT 40 H Sodium 137 Potassium 4.0 Chloride 104 Carbon Dioxide 22 BUN 9 Creatinine 0.58 Estimated GFR > 60 BUN/Creatinine Ratio 15.5 Glucose 133 H Lactate 0.9 Calcium 9.9 Total Bilirubin 0.6 AST 31 ALT 20 Alkaline Phosphatase 92 Total Creatine Kinase 21 L Troponin I < 0.012 NT-Pro-B Natriuret Pep 203 H Total Protein 8.9 H Albumin 4.4 Globulin 4.5 H Albumin/Globulin Ratio 1.0 Lipase 100 Procalcitonin 0.047 Urine Color [place] Urine Appearance Cloudy Urine pH 5 Ur Specific [place] TNP Urine Protein TNP Urine Glucose (UA) TNP Urine Ketones TNP Urine Occult Blood TNP Urine Nitrate TNP Urine Bilirubin TNP Urine Urobilinogen TNP Ur Leukocyte Esterase TNP Urine RBC 5-10/hpf H Urine WBC 30-100/hpf H Ur Squamous Epith Cells None seen Calcium Oxalate Crystal Few H Urine Bacteria Moderate (10-30) H Ur Culture Indicated? Specimen cultured Vol Urine Centrifuged 10ml (spun) Assessment & Plan Assessment & Plan narrative: 1. Pulmonary emboli, right-sided. No evidence of DVT on exam. Suspect pelvic source. Treat with oral apixaban 10 mg b.i.d. x 7 days then 5 mg b.i.d.. Anticipate 6 month course. 2. Acute cystitis. Treat with IV antibiotics and likely transition to oral in the next 24 hours in anticipation of discharge. 3. History of recent ESBL intra-abdominal infection with perisplenic abscess, resolved. Anticipate 6 month course. 4. Small left pleural effusion, improved. 5. Chronic opioid tolerance, on tapering opioid therapy as initiated at the last visit. Continue current plan to taper. 6. Tachycardia, leukocytosis, consistent with sepsis syndrome. Administer IV fluids, treat underlying conditions and follow clinically. Plan: -admit to observation -apixaban 10 mg b.i.d. -ceftriaxone 1 g IV Q 24 hours -opioid taper as above -IV hydration -follow cultures The patient is admitted to observation likely be stable for discharge home tomorrow if remaining clinically stable overnight. Full code status. Close outpatient follow-up recommended. Quality MIPS - Admit I confirm the patient?s Advance Care Plan is present, Code status is documented, Surrogate decision maker is in patient?s record [If Yes, STOP here]: Yes [facility] - Meds 'Current medications' to include all prescriptions, [id number] products, herbals, cannabis/cannabidiol products, and vitamin/mineral/dietary (nutritional) supplements. I have utilized all available resources to obtain, update, or review the patient?s current medications. [If Yes, STOP here]: Yes [facility] Charge Codes Initial inpatient/observation care: [id number]
[2024-04-04] MEDS: SODIUM CHLORIDE 0.45% 1,000 ML 100 ML IV (17:11)
[2024-04-04] MEDS: HYDROMORPHONE 0.5 MG INJ IV ×3 (17:11→23:26)
[2024-04-04] MEDS: cefTRIAXone 1,000 MG in SODIUM CHLORIDE 0.9% 100 ML 200 MG IV (17:12)
--- NOTE | 2024-04-04 18:27 | PC.NURSE ---
Pt admitted from ED on RA. Pt in ST on telemetry. Pt reports anxiety about hospitalization.
[2024-04-04] MEDS: ACETAMINOPHEN 325 MG TABLET 650 MG PO (18:59)
[2024-04-04] MEDS: APIXABAN 5 MG TABLET 10 MG PO (21:30)
[2024-04-04] MEDS: OXYCODONE ER 20 MG TAB 40 MG PO (21:30)
[2024-04-04] MEDS: GABAPENTIN 300 MG CAPSULE PO (21:30)
[2024-04-04] MEDS: SODIUM CHLORIDE 0.9% FLUSH 10 ML IV (21:31)
[2024-04-05] VITALS: BP 116/86; PULSE 91; RESP 17; TEMP 36.1; O2SAT 95
[2024-04-05 02:54] VITALS: BP 117/81; PULSE 80; O2SAT 99
[2024-04-05 02:55] VITALS: PULSE 85; O2SAT 97
[2024-04-05] MEDS: SODIUM CHLORIDE 0.45% 1,000 ML 100 ML IV (02:57)
[2024-04-05] MEDS: HYDROMORPHONE 0.5 MG INJ IV ×3 (03:01→08:26)
[2024-04-05 04:00] VITALS: BP 117/81; PULSE 81; RESP 16; TEMP 36.4; O2SAT 97
[2024-04-05] MEDS: LORazepam 1 MG TABLET PO (04:04)
[2024-04-05 05:05] LABS: Add Manual Diff / Slide Review NO; Basophils Absolute Auto 0 /uL (0-100); Basophils Percent Auto 0.7 % (0-2); Eosinophils Absolute Auto 400 /uL (0-450); Hematocrit 34.7 % (36-46); Hemoglobin 11.3 g/dL (12.0-16.0); Lymphocytes Absolute Auto 2200 /uL (1100-4500); Lymphocytes Percent Auto 36.5 % (25-40); Mean Corpuscular HGB Conc 32.5 % (30-36); Mean Corpuscular Volume 86.3 fL (80-100); Monocytes Absolute Auto 600 /uL (0-900); Monocytes Percent Auto 9.3 % (3-14); Neutrophils Absolute Auto 2800 /uL (1500-7000); Neutrophils Percent Auto 47.5 % (50-75); Platelet Count 348 X10^3/uL (150-400); Red Blood Cell Count 4.03 X10^6/uL (4.0-5.2); Red Cell Distribution Width 14.6 % (11.6-14.8); White Blood Cell Count 5.9 X10^3/uL (4.5-11.0)
[2024-04-05 08:19] VITALS: BP 116/76; RESP 18; TEMP 36.5
[2024-04-05] MEDS: OXYCODONE ER 20 MG TAB 40 MG PO (08:23)
[2024-04-05] MEDS: ACETAMINOPHEN 325 MG TABLET 650 MG PO (08:23)
[2024-04-05] MEDS: SODIUM CHLORIDE 0.9% FLUSH 10 ML IV (08:24)
[2024-04-05] MEDS: APIXABAN 5 MG TABLET 10 MG PO (08:24)
[2024-04-05] MEDS: GABAPENTIN 300 MG CAPSULE PO (08:24)
--- NOTE | 2024-04-05 09:30 | PM.DS.1 ---
History of Present Illness History of Present Illness Chief complaint: blood in urine, diff breathing, pain Narrative: From H&P: 28-year-old woman under the primary care of MIGDALIA Pina presented to the emergency department due to dysuria, hematuria, abdominal pain and difficulty breathing. Recent records reviewed including extensive hospitalization at [facility] for 28 days for bowel obstruction, status post exploratory laparotomy, TPN, antibiotics and multiple abscess drainage procedures complicated by ESBL infection, left pleural effusion, status post thoracentesis at this hospital on hospitalization 03/23 through 03/28. She feels she had been recuperating well though was experiencing complications of opioid therapy, and was on an outpatient opioid taper. She was found to have right-sided pulmonary emboli on emergency department evaluation by CT angiography. She denies any right-sided chest pain, noting her pain is in her left chest and abdomen, worse with deep inspiration, and denies lower extremity edema or pain. She was mildly tachycardic and met sepsis criteria, given a dose of IV Zosyn, and admitted for further management and evaluation. She is very upset and anxious about this hospitalization, noting she has been dealing with considerable anxiety after a recent complicated medical course, describing herself as very healthy and fit prior to these difficulties. Urine test reportedly negative in ED. Discharge Providers Provider Date of admission: 04/04/24 14:36 Discharge Date: 04/05/24 Primary care physician: MIGDALIA Pina Consults: None. Discharge provider: Walter Hoffman MD Summary Hospital Course Discharge Diagnosis: 1. Pulmonary emboli, right-sided. No evidence of DVT on exam. Suspect pelvic source. Treat with oral apixaban 10 mg b.i.d. x 7 days then 5 mg b.i.d.. Anticipate 6 month course. 2. Acute cystitis. Treat with IV antibiotics and likely transition to oral in the next 24 hours in anticipation of discharge. 3. History of recent ESBL intra-abdominal infection with perisplenic abscess, resolved. Anticipate 6 month course. 4. Small left pleural effusion, improved. 5. Chronic opioid tolerance, on tapering opioid therapy as initiated at the last visit. Continue current plan to taper. 6. Tachycardia, leukocytosis, consistent with sepsis syndrome. Administer IV fluids, treat underlying conditions and follow clinically. Hospital Course: She was admitted to the hospital and started on apixaban as noted a 10 mg b.i.d.. She was monitored overnight and improved. She does have a chronic tachycardia, this has been ongoing for several weeks. On the morning of discharge she was very motivated with the hospitalist he was possible. She will be discharged on oral antibiotics and we will follow her urine cultures. She sees General surgery and follow up on Friday he was asked to see your PCP within next 6 days. Status at Discharge Cognitive/behavioral status at discharge: oriented Functional status at discharge: independent ambulation Overall status at discharge: patient is back to baseline Time Spent with Patient Time spent: Greater than 30 minutes Exam Vital Signs (past 8 hours): - 04/05/24 02:54 04/05/24 02:54 04/05/24 02:55 Temperature Pulse Rate 80 85 Respiratory Rate Blood Pressure 117/81 Pulse Oximetry 99 97 Oxygen Flow Rate 04/05/24 04:00 04/05/24 08:19 Temperature 97.6 F 97.7 F Pulse Rate 81 Respiratory Rate 16 18 Blood Pressure 117/81 116/76 Pulse Oximetry 97 Oxygen Flow Rate 0 Oxygen Delivery Method Room Air Oxygen Flow Rate 0 Narrative Exam Narrative: NAD, alert and oriented. Fluent speech. Lungs are clear, normal rate and effort. Heart is regular, no murmur gallop or rub. Tachycardic. Abdomen is soft, non distended. Extremities are free of edema. Objective ECG Impression: Sinus tachycardia Possible Left atrial enlargement Imaging Multiple studies: : Radiologist's impression: CT angiogram chest:: Radiologist's impression: Right-sided segmental and subsegmental pulmonary emboli without evidence of right heart strain. Moderate left pleural effusion has improved in the interval. CT abdomen and pelvis with contrast:: Radiologist's impression: Proximal small bowel wall thickening and enhancement may reflect ileus or enteritis. No evidence of obstruction. Anastomosis in the right lower quadrant intact. No abscess or free air. Splenic probable infarct, stable from the prior Chest x-ray: Radiologist's impression: Linear atelectasis in left mid to lower lung field and trace left pleural effusion. No focal infiltrate or pneumothorax. Labs 04/05/24 04:50 04/04/24 11:55 Labs: Laboratory Results - last 24 hr 04/04/24 04/04/24 04/05/24 11:55 12:22 04:50 WBC 11.5 H 5.9 RBC 4.47 4.03 Hgb 12.5 11.3 L Hct 39.0 34.7 L MCV 87.1 86.3 MCH 28.0 28.0 MCHC 32.1 32.5 RDW 14.9 H 14.6 Plt Count 416 H 348 Neut % (Auto) 68.2 47.5 L D Lymph % (Auto) 23.2 L 36.5 [place] % (Auto) 6.1 9.3 Eos % (Auto) 2.1 6.0 H Baso % (Auto) 0.4 0.7 Neut # (Auto) 7800 H 2800 Lymph # (Auto) 2700 2200 [place] # (Auto) 700 600 Eos # (Auto) 200 400 Baso # (Auto) 0 0 PT 12.7 H INR 1.1 APTT 40 H Sodium 137 Potassium 4.0 Chloride 104 Carbon Dioxide 22 BUN 9 Creatinine 0.58 Estimated GFR > 60 BUN/Creatinine Ratio 15.5 Glucose 133 H Lactate 0.9 Calcium 9.9 Total Bilirubin 0.6 AST 31 ALT 20 Alkaline Phosphatase 92 Total Creatine Kinase 21 L Troponin I < 0.012 NT-Pro-B Natriuret Pep 203 H Total Protein 8.9 H Albumin 4.4 Globulin 4.5 H Albumin/Globulin Ratio 1.0 Lipase 100 Procalcitonin 0.047 Urine Color [place] Urine Appearance Cloudy Urine pH 5 Ur Specific [place] TNP Urine Protein TNP Urine Glucose (UA) TNP Urine Ketones TNP Urine Occult Blood TNP Urine Nitrate TNP Urine Bilirubin TNP Urine Urobilinogen TNP Ur Leukocyte Esterase TNP Urine RBC 5-10/hpf H Urine WBC 30-100/hpf H Ur Squamous Epith Cells None seen Calcium Oxalate Crystal Few H Urine Bacteria Moderate (10-30) H Ur Culture Indicated? Specimen cultured Vol Urine Centrifuged 10ml (spun) [facility], [facility] Social History household members: significant other Smoking Status: Unknown if ever smoked alcohol intake: never Discharge Assessment & Plan Assessment and Plan Assessment: 1. Pulmonary emboli, right-sided. No evidence of DVT on exam. Suspect pelvic source. Treat with oral apixaban 10 mg b.i.d. x 7 days then 5 mg b.i.d.. Anticipate 6 month course. 2. Acute cystitis. Treat with IV antibiotics and likely transition to oral in the next 24 hours in anticipation of discharge. Plan of Treatment: Stable for discharge on apixaban as noted above, we will continue antibiotics for urine tract infection and follow cultures. She follows up with surgery on Friday, it was advised to see your PCP within the next 6 days as well. She was given short-term refills for her short-acting and long-acting oxycodone. Discharge Plan Discharge Plan Patient Disposition: Home Provider Discharge Comment: Follow up with her surgeon this Friday as scheduled, her primary care air and within the next week. Discharge orders & Medications Prescriptions: New apixaban 5 mg tablet 10 mg PO DIRECTED Qty: 70 0RF Rx Instructions: 10 mg BID for 6 days, then 5 mg BID thereafter (6 months) cephalexin 500 mg capsule 500 mg PO QID Qty: 20 0RF oxycodone 5 mg capsule 5 mg PO BID PRN (Reason: pain) Qty: 10 0RF Continued gabapentin 300 mg Capsule 300 mg PO TID 30 Days Qty: 90 0RF ondansetron 4 mg tablet,disintegrating 4 mg PO Q8H PRN (Reason: nausea and vomiting) 10 Days Qty: 30 0RF oxycodone 10 mg tablet,oral only,ext.rel.12 hr See Rx Instructions .ROUTE .COMPLEX 28 Days Qty: 20 0RF Rx Instructions: Take 40 mg BID for 1 week, 30 mg BID for 1 week, 20 mg BID for 1 week, 10 mg BID for 1 week then stop. Discontinued ibuprofen 400 mg Tablet 800 mg PO Q8HR Qty: 180 0RF Follow up/Referrals: Lala Jacobsen ARNP [Primary Care Provider] - Diet/Activity/Treatments Diet: Diet as Tolerated Skin/Wound/Dressing Care Report to your healthcare provider any signs of infection, such as:: chills, fever, night sweats and increased pain Visit Report/Discharge Packet Instructions: DI for Pulmonary Embolism, DI for Urinary Tract Infection (UTI), Oxycodone, Cephalexin, Apixaban Stand Alone Forms: Patient Portal/API, Stroke Signs & Symptoms Discharge Data Primary Care Provider: Lala Jacobsen Attending Provider: Sohail Bernstein V Admit Date/Time: 04/04/24 14:36
--- NOTE | 2024-04-05 15:32 | CM.DANOTE ---
Patient is a 28 yo female who was a READMIT on 04/04/24 for SOB/Pulmonary Emboli/Sepsis. Pt has [employer] for insurance and her PCP is MIGDALIA Jacobsen. Reviewed EMR and team rounds and pt medically stable to d/c home today with short acting pain medication. Pt recently hospitalized at [facility] for a month for a bowel obstruction, TPN, IV ABO's, and multiple abscess drainage procedures. She was discharged home, but then developed a splenic abscess, which again required new drains placed. Pt was recently admitted to [facility] from 03/25-03/28/24 and was started on IV ABO's and Zofran for several episodes of vomiting. Chest x-ray in the ED was positive for a moderate sized L-pleural effusion, she did have a successful thoracentesis and was able to be discharged home. Pt a readmit for her Acute cystitis, sepsis, and Pulmonary Emboli and responded well to treatment and independent in room and stable for d/c home today. Pt lives independently at baseline with her boyfriend in their own home here in [place], pt drives and works at baseline and does not use DME for ambulation and no hx of HH or SNF and her preference is to d/c home this morning as she is tired of being in the hospital so much over the past month or two. Pt's boyfriend arrived to transport her home and RN provided discharge instructions and no concerns noted. ELIA Walton Discharge Planning/Care Management CM Discharge Assessment Start: 04/05/24 15:29 Freq: Status: Active Protocol: Document 04/05/24 15:29 BF (Rec: 04/05/24 15:31 BF [id number]) Discharge Planning Assessment Assigned [employer] ELIA James DPOA/Assigned Designee Name none Advance Directives? No Advance Directives on File No History Provided By Patient,Medical Record Has Patient been admitted in last 30 Yes days? Comment Just admitted 03/25-03/28/24 for similar and discharged home Prior Living Arrangements Apartment/Condo Household Members significant other Type of transporation used prior to Drives own vehicle admit Independent with ADL's Yes Is patient alert and oriented? Yes Caregiver for Another No Barriers to Discharge No Discharge Plan Home Transportation Arrangement Boyfriend Referrals Initiated None needed Whiteboard Updated in Patient Room with Yes name and ext. # of [employer] Review Status In Process Please Provide Date Initial DC 04/05/24 Assessment Was Performed Next Review Type Continued Stay Review
== END 2024-04-05 10:41 | disposition home or self-care (01) ==
LOC: ED 14:11 → AC 14:54 → ICU 04-05 09:31 → AC 04-05 11:16 → ICU 04-05 11:16
PROVIDERS: Admitting Provider Internal Medicine; Emergency Provider Emergency Medicine; PCP Registered Nurse; Referring Provider Emergency Medicine; Visit Provider Internal Medicine
DX: I26.99 Other pulmonary embolism without acute cor pulmonale (principal); J90 Pleural effusion, not elsewhere classified; N30.01 Acute cystitis with hematuria; R00.0 Tachycardia, unspecified; D72.829 Elevated white blood cell count, unspecified; Z98.890 Other specified postprocedural states
CPT/HCPCS: 36415; 71045; 71275; 74177; 80053; 81001; 81025; 82550; 83605; 83690; 83880; 84145; 84484; 85025; 85610; 85730; 87040; 87077; 87086; 87186; 93005; 93010; 96361; 96365; 96367; 96372; 96375; 96376; 99284; G0378; J0696; J1171; J1650; J2405; J2543; J3010; J7050; Q9967

== ENCOUNTER 2024-04-21 15:18 | Emergency (ER) | payer OTHER, SELFPAY ==
[2024-04-04 16:34] VITALS: BMI 20.3
[2024-04-21] VITALS (8 sets, daily range): BP systolic 98–145; BP diastolic 62–90; PULSE 87–115; RESP 16–20; TEMP 36.4; O2SAT 97–100
--- NOTE | 2024-04-21 15:22 | ED_ITS ---
HPI - Abdominal Pain <Shanna Trevino PA-C - Last Filed: 04/21/24 17:37> General Chief Complaint: Chest Pain Stated Complaint: Abd/Chest Px Time Seen by Provider: 04/21/24 15:22 History of Present Illness HPI narrative: 28-year-old female presents with chest pain since yesterday, she points to her anterior chest and states the right side is worse than the left. First she thought she was having some gas pain, so she took some milk of magnesia had a normal bowel movement but the pain still persisted and it seemed to be a little bit worse and now radiates through to the back. She describes it as sharp, constant, 4 to 5/10 at this point. Last night she had 1 episode of nausea with vomiting but took some Zofran and has had no recurrence. Her history is significant for right pulmonary embolus diagnosed on April 04, 2024 and has been on apixaban 5mg BID since that time. She has not missed any doses and takes it like clock-work. Chest CTA showed right segmental and subsegmental PE with no heart strain. She was also treated for UTI. Prior to this she was hospitalized for about 1 month's time at [facility] for bowel obstruction and subsequent abdominal abscesses undergoing an exploratory laparotomy. Her admission was complicated by pleural effusion which required thoracentesis and splenic infarct. She currently takes OxyContin time release every 12 hours. She has been trying to wean herself off of pain medications. Still takes gabapentin but states, it doesn't really help much. She reports no urinary symptoms, no bloating, no vaginal symptoms, occasionally she notices some incisional pain, she states her breathing is ?not normal? but she reports no difficulty breathing or shortness of breath. She states pain is worse if she lays prone, she laid on her side to sleep but her sleep was disrupted. She denies any fever, chills, body aches or joint pains. Last oral intake was this morning which consisted of a protein ke and Friday. Prior to this she did have a 4 day history of upper respiratory infection symptoms which she managed with DayQuil and some cough drops. Overall she is better, she may have had some chills at that time but reported no cough. Last menstrual cycle January 2024 during her admission. All other systems are reviewed and are negative. Related Data Previous Rx's Medication Instructions Recorded gabapentin 300 mg capsule 300 mg PO TID 30 days #90 caps 03/28/24 apixaban 5 mg tablet 10 mg (2 x 5 mg) PO DIRECTED 04/05/24 #70 tabs cephalexin 500 mg capsule 500 mg PO QID #20 caps 04/05/24 oxycodone 10 mg tablet,crush See Rx Instructions .Route 04/05/24 resistant,extended release 12 hr .COMPLEX 28 days #20 tabs oxycodone 5 mg capsule 5 mg PO BID PRN pain #10 caps 04/05/24 hydroxyzine HCl 25 mg tablet 25 mg PO QID PRN anxiety #30 tabs 04/21/24 Allergies Allergy/AdvReac Type Severity Reaction Status Date / Time cyclobenzaprine Allergy Verified 03/23/24 09:29 [From Flexeril] promethazine [From Phenergan] Allergy Verified 03/23/24 09:29 Review of Systems <Shanna Trevino PA-C - Last Filed: 04/21/24 17:37> Review of Systems Narrative: All other systems reviewed and are negative. Patient History <Shanna Trevino PA-C - Last Filed: 04/21/24 17:37> Social History household members: significant other Smoking Status: Unknown if ever smoked alcohol intake: never Smoking Status: Unknown if ever smoked alcohol intake frequency: holidays/special occasions only Exam <Shanna Trevino PA-C - Last Filed: 04/21/24 17:37> Initial Vital Signs Initial Vital Signs: Vital Signs Pulse Rate 111 H 04/21/24 15:23 Blood Pressure 145/90 H 04/21/24 15:23 Pulse Oximetry 100 04/21/24 15:23 Reviewed and are normal except for heart rate between 104 and 109. Pulse oximetry 100% on room air. Over the course of her stay her heart rate trended down to 96, following hydroxyzine administration he was in the 80s. Blood pressure remained normal pulse oximetry remained normal. Respiratory rate also normal Const General: cooperative, comfortable, well developed, No acute distress and anxious (mildly) Orientation: Orientation (A&Ox4) [facility] Head: normal to inspection, normocephalic and atraumatic Ears: external ears normal Nose: external nose normal, nares normal and nasal mucous membranes and turbinates normal Mouth: oral mucosae normal, lip normal, tongue normal and oropharynx normal Throat: posterior oropharynx normal and uvula midline Eyes General: Yes appearance normal, both eyes and all related structures Neck Neck: normal visual inspection, full ROM, no meningeal signs, trachea midline and supple Lymphatic: No lymphadenopathy Chest Chest: normal inspection of the chest, normal palpation of entire chest wall, No crepitus, No localized rib tenderness with anteroposterior compression, No mass and No tenderness Resp Effort & Inspection: normal respiratory effort and able to speak in complete sentences Auscultation: clear to auscultation bilaterally, no rales, no rhonchi and no wheezes Cardio Rate: regular rate Rhythm: regular rhythm Heart Sounds: S1 normal, S2 normal, no gallops, no murmurs and no rubs GI Inspection: normal to inspection and incision (Midline well-healed) Palpation: soft, no hepatosplenomegaly, No aortic enlargement and No guarding Percussion: normal to percussion Auscultation: normal bowel sounds Back/Spine/Pelvis Back: normal to inspection, No back tenderness, No CVA tenderness and No ecchymosis Skin General: no rashes or lesions noted <Shahnaz Gutiérrez MD - Last Filed: 04/22/24 07:14> Initial Vital Signs Initial Vital Signs: Vital Signs Pulse Rate 111 H 04/21/24 15:23 Blood Pressure 145/90 H 04/21/24 15:23 Pulse Oximetry 100 04/21/24 15:23 Course <Shanna Trevino PA-C - Last Filed: 04/21/24 17:37> Orders Ordered: Discontinued Medications Hydroxyzine HCl (Hydroxyzine Hcl 25 Mg Tablet) 25 mg PO NOW ONE Stop: 04/21/24 16:48 Last Admin: 04/21/24 16:57 Dose: 25 mg Documented By: ED Reevaluation(s) Reevaluation #1: Re-evaluated at 4:50 p.m. reviewed all of the lab work and diagnostics, reassured her everything is within normal limits. She feels better overall knowing this, her heart rate has come down below 100 it was down 96-98 per minute, she agrees to a trial of hydroxyzine to treat the anxiety component 25 mg is given p.o. Reevaluation #2: Re-evaluated following hydroxyzine she overall feels much better her heart rate has come down it was now in the 80s. She is a little sleepy but otherwise she feels ready to go home. Consultations Consultation #1: Discussed this patient's case/presentation with attending Dr. Gutiérrez. <Shahnaz Gutiérrez MD - Last Filed: 04/22/24 07:14> Orders Ordered: Discontinued Medications Hydroxyzine HCl (Hydroxyzine Hcl 25 Mg Tablet) 25 mg PO NOW ONE Stop: 04/21/24 16:48 Last Admin: 04/21/24 16:57 Dose: 25 mg Documented By: ED JETT - Abdominal Pain <Shanna Trevino PA-C - Last Filed: 04/21/24 17:37> Lab Data Lab results narrative: CBC, CMP, Lipase, cardiac panel/Troponin, CK, are all within normal limits. UA POC normal. Urine HCG negative. 04/21/24 15:56 04/21/24 15:56 Labs: Lab Results 04/21/24 Range/Units 15:56 WBC 8.0 (4.5-11.0) X10^3/uL RBC 4.46 (4.0-5.2) X10^6/uL Hgb 12.3 (12.0-16.0) g/dL Hct 37.8 (36-46) % MCV 84.8 (80-100) fL MCH 27.6 (26-34) PG MCHC 32.6 (30-36) % RDW 15.2 H (11.6-14.8) % Plt Count 449 H (150-400) X10^3/uL Neut % (Auto) 60.3 (50-75) % Lymph % (Auto) 31.0 (25-40) % [place] % (Auto) 7.6 (3-14) % Eos % (Auto) 0.8 L (2-4) % Baso % (Auto) 0.3 (0-2) % Neut # (Auto) 4900 (2604-4411) /uL Lymph # (Auto) 2500 (4484-9255) /uL [place] # (Auto) 600 (0-900) /uL Eos # (Auto) 100 (0-450) /uL Baso # (Auto) 0 (0-100) /uL PT 15.0 H (9.4-12.5) SECONDS INR 1.3 (0.9-1.3) Sodium 137 (137-145) mmol/L Potassium 4.2 (3.4-5.1) mmol/L Chloride 105 (98-107) mmol/L Carbon Dioxide 27 (22-32) mmol/L BUN 11 (7-17) mg/dL Creatinine 0.47 L (0.52-1.04) mg/dL Estimated GFR > 60 (>60) mL/min BUN/Creatinine Ratio 23.4 H (6-22) Glucose 108 H (70-100) mg/dL Calcium 9.5 (8.4-10.2) mg/dL Total Bilirubin 0.3 (0.2-1.3) mg/dL AST 24 (14-36) IU/L ALT 21 (<35) IU/L Alkaline Phosphatase 62 (38-126) U/L Total Creatine Kinase < 20 L (30-135) U/L Troponin I < 0.012 (0.01-0.034) ng/mL Total Protein 7.5 (6.3-8.2) g/dL Albumin 4.1 (3.5-5.0) g/dL Globulin 3.4 (1.7-4.1) g/dL Albumin/Globulin Ratio 1.2 (1.0-2.8) Lipase 134 (23-300) U/L Point of care testing: Point of Care Testing Test Results Negative Urine Dip Bedside Urine Glucose Negative Bedside Urine Bilirubin - Negative Bedside Urine Ketone - Negative Urine Specific [place] 1.010 Bedside Urine Occult Blood - Negative Bedside Urine pH 7.5 Bedside Urine Protein - Negative Bedside Urine Urobilinogen - Negative Bedside Urine Nitrite - Negative Bedside Urine Leukocytes - Negative Esterase Imaging Data Chest x-ray: My Impression: Deferred to radiologist's interpretation below. Radiologist's Impression: PROCEDURE: XR CHEST 1V INDICATIONS: chest pain TECHNIQUE: One view of the chest was acquired. COMPARISON: [facility], CT, CT ANGIO CHEST PE PROTOCOL, 04/04/2024, 12:21. [facility], CR, XR CHEST 2V, 03/26/2024, 8:12. [facility], CR, XR CHEST 1V, 04/04/2024, 11:56. FINDINGS: Surgical changes and devices: None. Lungs and pleura: Lungs are clear. No pleural effusions or pneumothorax. Mediastinum: Mediastinal contours appear normal. Heart size is normal. Bones and chest wall: No suspicious bony lesions. Overlying soft tissues appear unremarkable. IMPRESSION: Normal portable chest. Dictated by: Cory Loyd M.D. on 04/21/2024 at 15:09 Approved by: Cory Loyd M.D. on 04/21/2024 at 15:10 ECG Data Interpretation: Sinus tachycardia ventricular rate of 109 per minute, normal axis, incomplete right bundle branch block per the machine's interpretation, comparison is made to a study on 04/04/2024 no significant interval change. No P or T-wave abnormalities, no ST segment changes. MDM Narrative Medical decision making narrative: Discussed this patient's case/presentation with Dr. Gutiérrez. Patient's workup was essentially negative. Her vital signs remained normal throughout, her heart rate did come down below 100 after she was reassured. A trial of hydroxyzine 25 mg given for the anxiety component. P.O. challenge with ice water no issues. She states the pain is still present but not as severe, no changes or any new symptoms during her stay. Pain likely related to underlying P.E. diagnosis and self-weening off of narcotic pain analgesia. She has had no nausea, no urinary symptoms, no abdominal pain, no cough. Hydroxyzine certainly did help, her heart rate came down into the 80s and she generally feels more relaxed. Overall she feels better with the reassurance, she does admit to having an anxiety component as she does worry about taking this blood thinner.She does have a follow up appointment with her PCP this Friday on April 23, 2024. <Shahnaz Gutiérrez MD - Last Filed: 04/22/24 07:14> Lab Data Labs: Lab Results 04/21/24 Range/Units 15:56 WBC 8.0 (4.5-11.0) X10^3/uL RBC 4.46 (4.0-5.2) X10^6/uL Hgb 12.3 (12.0-16.0) g/dL Hct 37.8 (36-46) % MCV 84.8 (80-100) fL MCH 27.6 (26-34) PG MCHC 32.6 (30-36) % RDW 15.2 H (11.6-14.8) % Plt Count 449 H (150-400) X10^3/uL Neut % (Auto) 60.3 (50-75) % Lymph % (Auto) 31.0 (25-40) % [place] % (Auto) 7.6 (3-14) % Eos % (Auto) 0.8 L (2-4) % Baso % (Auto) 0.3 (0-2) % Neut # (Auto) 4900 (2223-8110) /uL Lymph # (Auto) 2500 (5199-4495) /uL [place] # (Auto) 600 (0-900) /uL Eos # (Auto) 100 (0-450) /uL Baso # (Auto) 0 (0-100) /uL PT 15.0 H (9.4-12.5) SECONDS INR 1.3 (0.9-1.3) Sodium 137 (137-145) mmol/L Potassium 4.2 (3.4-5.1) mmol/L Chloride 105 (98-107) mmol/L Carbon Dioxide 27 (22-32) mmol/L BUN 11 (7-17) mg/dL Creatinine 0.47 L (0.52-1.04) mg/dL Estimated GFR > 60 (>60) mL/min BUN/Creatinine Ratio 23.4 H (6-22) Glucose 108 H (70-100) mg/dL Calcium 9.5 (8.4-10.2) mg/dL Total Bilirubin 0.3 (0.2-1.3) mg/dL AST 24 (14-36) IU/L ALT 21 (<35) IU/L Alkaline Phosphatase 62 (38-126) U/L Total Creatine Kinase < 20 L (30-135) U/L Troponin I < 0.012 (0.01-0.034) ng/mL Total Protein 7.5 (6.3-8.2) g/dL Albumin 4.1 (3.5-5.0) g/dL Globulin 3.4 (1.7-4.1) g/dL Albumin/Globulin Ratio 1.2 (1.0-2.8) Lipase 134 (23-300) U/L Point of care testing: Point of Care Testing Test Results Negative Urine Dip Bedside Urine Glucose Negative Bedside Urine Bilirubin - Negative Bedside Urine Ketone - Negative Urine Specific [place] 1.010 Bedside Urine Occult Blood - Negative Bedside Urine pH 7.5 Bedside Urine Protein - Negative Bedside Urine Urobilinogen - Negative Bedside Urine Nitrite - Negative Bedside Urine Leukocytes - Negative Esterase Discharge Plan Departure Patient Disposition: Home Clinical Impression: Chest pain Instructions: DI for Chest Pain Activity Restrictions/Additional Instructions: Your chest pain is likely related to your underlying diagnosis of pulmonary embolism. As you wean herself off your narcotic analgesia you may experience more pain or more awareness of it. Use caution with your medication dosing and of course consider using alternative such as ice or heat. I highly recommend that she follow up with your primary care provider during this challenging time and to keep your upcoming appointment on 04/23/24. The hydroxyzine can be used for anxiety as needed. Prescription can be picked up tomorrow morning at [facility]. It is not habit forming (antihistamine family of medication). Stay hydrated and consider acetaminophen (Tylenol) for mild pain. Avoid use of NSAID's such as Advil/Ibuprofen, Aleve/Naproxen as you are currently taking a blood thinner. You may want to consider journal-ing again. These medications can increase your risk of bleeding. Do not hesitate to return to the Emergency Department if your pain persists, changes, become worrisome or develop any new, concerning symptoms. Prescriptions: New hydroxyzine HCl 25 mg tablet 25 mg PO QID PRN (Reason: anxiety) Qty: 30 0RF No Action gabapentin 300 mg Capsule 300 mg PO TID 30 Days Qty: 90 0RF apixaban 5 mg tablet 10 mg PO DIRECTED Qty: 70 0RF Rx Instructions: 10 mg BID for 6 days, then 5 mg BID thereafter (6 months) cephalexin 500 mg capsule 500 mg PO QID Qty: 20 0RF oxycodone 10 mg tablet,oral only,ext.rel.12 hr See Rx Instructions .ROUTE .COMPLEX 28 Days Qty: 20 0RF Rx Instructions: Take 40 mg BID for 1 week, 30 mg BID for 1 week, 20 mg BID for 1 week, 10 mg BID for 1 week then stop. oxycodone 5 mg capsule 5 mg PO BID PRN (Reason: pain) Qty: 10 0RF Referrals: Llaa Jacobsen ARNP [Primary Care Provider] - Stand Alone Forms: Patient Portal/API/Survey ED Sign-out <Shahnaz Gutiérrez MD - Last Filed: 04/22/24 07:14> Cosign ED Attending Maria Antonia Attestation: I was immediately available in the department for consultation throughout this patient's visit. Shanna Trevino Pa-c and I discussed this case in real-time including appropriate studies, follow up and improvement prior to discharge. Shahnaz Gutiérrez MD
--- NOTE | 2024-04-21 15:26 | EKG_ITS ---
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
--- NOTE | 2024-04-21 15:45 | DI.RAD.S_ITS ---
PROCEDURE: XR CHEST 1V INDICATIONS: chest pain TECHNIQUE: One view of the chest was acquired. COMPARISON: [facility], CT, CT ANGIO CHEST PE PROTOCOL, 04/04/2024, 12:21. [facility], CR, XR CHEST 2V, 03/26/2024, 8:12. [facility], CR, XR CHEST 1V, 04/04/2024, 11:56. FINDINGS: Surgical changes and devices: None. Lungs and pleura: Lungs are clear. No pleural effusions or pneumothorax. Mediastinum: Mediastinal contours appear normal. Heart size is normal. Bones and chest wall: No suspicious bony lesions. Overlying soft tissues appear unremarkable. IMPRESSION: Normal portable chest. Dictated by: Cory Loyd M.D. on 04/21/2024 at 15:09 Approved by: Cory Loyd M.D. on 04/21/2024 at 15:10
[2024-04-21 16:13] LABS: Add Manual Diff / Slide Review NO; Basophils Absolute Auto 0 /uL (0-100); Basophils Percent Auto 0.3 % (0-2); Eosinophils Absolute Auto 100 /uL (0-450); Eosinophils Percent Auto 0.8 % (2-4); Hematocrit 37.8 % (36-46); Hemoglobin 12.3 g/dL (12.0-16.0); Lymphocytes Absolute Auto 2500 /uL (1100-4500); Mean Corpuscular HGB Conc 32.6 % (30-36); Mean Corpuscular Hemoglobin 27.6 PG (26-34); Mean Corpuscular Volume 84.8 fL (80-100); Monocytes Absolute Auto 600 /uL (0-900); Monocytes Percent Auto 7.6 % (3-14); Neutrophils Absolute Auto 4900 /uL (1500-7000); Neutrophils Percent Auto 60.3 % (50-75); Platelet Count 449 X10^3/uL (150-400); Red Blood Cell Count 4.46 X10^6/uL (4.0-5.2); Red Cell Distribution Width 15.2 % (11.6-14.8)
[2024-04-21 16:15] LABS: INR 1.3 (0.9-1.3)
[2024-04-21 16:20] LABS: Alanine Aminotransferase 21 IU/L (<35); Albumin 4.1 g/dL (3.5-5.0); Albumin Globulin Ratio 1.2 (1.0-2.8); Alkaline Phosphatase 62 U/L (38-126); Aspartate Aminotransferase 24 IU/L (14-36); BUN Creatinine Ratio 23.4 (6-22); Bilirubin Total 0.3 mg/dL (0.2-1.3); Blood Urea Nitrogen 11 mg/dL (7-17); Calcium 9.5 mg/dL (8.4-10.2); Carbon Dioxide 27 mmol/L (22-32); Chloride 105 mmol/L (98-107); Creatine Kinase < 20 U/L (30-135); Estimated Glomerular Filt Rate > 60 mL/min (>60); Globulin 3.4 g/dL (1.7-4.1); Glucose 108 mg/dL (70-100); HEMOLYSIS < 15 (0-50); Lipase 134 U/L (23-300); Potassium 4.2 mmol/L (3.4-5.1); Sodium 137 mmol/L (137-145); Total Protein 7.5 g/dL (6.3-8.2)
[2024-04-21 16:31] LABS: Troponin I < 0.012 ng/mL (0.01-0.034)
[2024-04-21] MEDS: hydrOXYzine HCL 25 MG TABLET PO (16:57)
== END 2024-04-21 17:41 | disposition home or self-care (01) ==
PROVIDERS: Emergency Provider Physician Assistant Medical; PCP Registered Nurse
DX: R07.9 Chest pain, unspecified (principal); F41.9 Anxiety disorder, unspecified
CPT/HCPCS: 71045; 80053; 81003; 81025; 82550; 83690; 84484; 85025; 85610; 93005; 99283; 99284; A9270

== ENCOUNTER 2024-05-01 07:58 | Emergency (ER) | payer OTHER, SELFPAY ==
[2024-04-04 16:34] VITALS: BMI 20.3
[2024-05-01] VITALS (10 sets, daily range): BP systolic 107–134; BP diastolic 72–83; PULSE 96–145; RESP 12–22; TEMP 36.9; O2SAT 95–100; BMI 19.5
--- NOTE | 2024-05-01 08:23 | DI.RAD.S_ITS ---
PROCEDURE: XR CHEST 1V INDICATIONS: chest pain TECHNIQUE: One view of the chest was acquired. COMPARISON: [facility], CR, XR CHEST 1V, 04/21/2024, 15:54. FINDINGS: Surgical changes and devices: None. Lungs and pleura: Lungs are clear. No pleural effusions or pneumothorax. Mediastinum: Mediastinal contours appear normal. Heart size is normal. Bones and chest wall: No suspicious bony lesions. Overlying soft tissues appear unremarkable. IMPRESSION: No acute cardiopulmonary abnormality is seen. Dictated by: Cm Boone M.D. on 05/01/2024 at 8:56 Approved by: Cm Boone M.D. on 05/01/2024 at 8:56
--- NOTE | 2024-05-01 08:26 | EKG_ITS ---
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
--- NOTE | 2024-05-01 09:01 | ED.ARRPALP ---
HPI - Arrhythmia/Palpitations General Chief Complaint: Arrhythmia/Palpitations Stated Complaint: per pt high heart rate, chills, nausea Time Seen by Provider: 05/01/24 08:28 Source: patient Mode of arrival: Ambulatory History of Present Illness HPI narrative: Patient was a 28-year-old female. He was on anticoagulation secondary to a pulmonary embolism that was diagnosed in the past month. She was also had issues with a fast heart rate. Within the past several months her history has also been complicated by a prolonged hospital stay secondary to a bowel obstruction and what appears to be a perforation and prolonged antibiotics. They feel this is what caused the pulmonary embolism. She states that since she had the bowel issues she was not been feeling 100% back to normal but was at this new baseline yesterday morning. She did fall yesterday. She thinks she tripped over her dog and sustained an injury to her right little finger. Yesterday evening she started to feel poorly with an increased heart rate, chills, nausea. She did have a bowel movement yesterday that was normal for her. Denies any urinary symptoms. No chest pain but is having palpitations. No lower extremity swelling. It did take her Eliquis last evening but not this morning. She has taken the rest of her medications. Related Data Previous Rx's Medication Instructions Recorded apixaban 5 mg tablet 10 mg (2 x 5 mg) PO DIRECTED 04/05/24 #70 tabs cephalexin 500 mg capsule 500 mg PO QID #20 caps 04/05/24 oxycodone 5 mg capsule 5 mg PO BID PRN pain #10 caps 04/05/24 hydroxyzine HCl 25 mg tablet 25 mg PO QID PRN anxiety #30 tabs 04/21/24 propranolol 10 mg tablet 10 mg PO TID PRN tachycardia #30 05/01/24 tabs Allergies Allergy/AdvReac Type Severity Reaction Status Date / Time cyclobenzaprine Allergy Verified 03/23/24 09:29 [From Flexeril] promethazine [From Phenergan] Allergy Verified 03/23/24 09:29 Review of Systems Review of Systems ROS Unobtainable: All systems reviewed & are unremarkable except as noted in HPI and below Patient History Social History household members: significant other Smoking Status: Unknown if ever smoked alcohol intake: never Smoking Status: Unknown if ever smoked alcohol intake frequency: holidays/special occasions only Exam Initial Vital Signs Initial Vital Signs: Vital Signs Temperature 98.4 F 05/01/24 08:14 Pulse Rate 136 H 05/01/24 08:14 Respiratory Rate 20 05/01/24 08:14 Blood Pressure 114/72 05/01/24 08:14 Pulse Oximetry 100 05/01/24 08:14 Oxygen Delivery Method Room Air 05/01/24 08:14 Const General: cooperative, comfortable and No ill appearing HENMT Head: normal to inspection and normocephalic Resp Effort & Inspection: normal respiratory effort Auscultation: clear to auscultation bilaterally Cardio Rate: tachycardic Rhythm: regular rhythm GI Inspection: normal to inspection and non-distended Skin General: no rashes or lesions noted Other: Bruising to the right little finger Neuro General: patient alert, patient awake and moves all extremities Extrem General: normal to inspection and capillary refill normal Other: Bruising to the right little finger Procedures Orthopedic Splinting/Casting Injury #1: Side: right Upper Extremity Injury Location: finger Upper Extremity Immobilizer: aluminum form splint Post splinting neuro exam: intact Post splinting vascular exam: intact Placed by: Nursing Course Orders Ordered: ED Orders 05/01/24 08:23 XR chest 1V Stat EKG-12 Lead Stat 05/01/24 09:08 Complete Blood Count AUTO DIFF Stat Comprehensive Metabolic Panel Stat Lipase Stat Magnesium Stat NT-proBNP (BNP-Adult 18+) Stat PTT Partial Thromboplastin Faustino Stat Prothrombin Time INR Stat Troponin & CK Cardiac Panel Stat 05/01/24 09:15 Covid-19 + FLU A/B + RSV - PCR Stat 05/01/24 09:16 XR hand RT min 3V Stat 05/01/24 11:00 Urine Culture Stat Urine Microscopic Stat Discontinued Medications Acetaminophen (Acetaminophen 325 Mg Tablet) 650 mg PO NOW ONE Stop: 05/01/24 10:24 Last Admin: 05/01/24 10:46 Dose: 650 mg Documented By: RB Aspirin (Aspirin 81 Mg Chew Tab) 324 mg PO NOW ONE Stop: 05/01/24 08:24 Last Admin: 05/01/24 09:50 Dose: Not Given Documented By: RB Propranolol HCl (Propranolol 10 Mg Tablet) 20 mg PO NOW ONE Stop: 05/01/24 09:17 Last Admin: 05/01/24 09:48 Dose: 20 mg Documented By: HEMA Vital Signs Vital signs: Vital Signs - 8 hr 05/01/24 08:14 05/01/24 08:44 05/01/24 08:46 Temperature 98.4 F Pulse Rate 136 H 139 H 143 H Respiratory Rate 20 18 18 Blood Pressure 114/72 Pulse Oximetry 100 95 100 Oxygen Delivery Method Room Air 05/01/24 08:46 05/01/24 09:00 05/01/24 09:00 Temperature Pulse Rate 145 H Respiratory Rate 12 Blood Pressure 134/79 112/83 Pulse Oximetry 99 Oxygen Delivery Method 05/01/24 09:30 05/01/24 09:30 05/01/24 10:00 Temperature Pulse Rate 131 H 119 H Respiratory Rate 22 17 Blood Pressure 107/72 Pulse Oximetry 98 99 Oxygen Delivery Method 05/01/24 10:00 05/01/24 10:30 05/01/24 10:30 Temperature Pulse Rate 105 H Respiratory Rate 15 Blood Pressure 108/77 116/74 Pulse Oximetry 97 Oxygen Delivery Method 05/01/24 10:55 05/01/24 10:55 05/01/24 11:00 Temperature Pulse Rate 103 H 106 H Respiratory Rate 15 14 Blood Pressure 111/80 Pulse Oximetry 100 100 Oxygen Delivery Method 05/01/24 11:00 Temperature Pulse Rate Respiratory Rate Blood Pressure 108/79 Pulse Oximetry Oxygen Delivery Method MDM - Arrhythmia/Palpitations Medical Records Attestation: I reviewed the patient's medical records. Lab Data Attestation: I reviewed the patient's lab results. 05/01/24 09:08 05/01/24 09:08 Labs: Lab Results 05/01/24 05/01/24 05/01/24 Range/Units 09:08 09:15 11:00 WBC 10.3 (4.5-11.0) X10^3/uL RBC 4.95 (4.0-5.2) X10^6/uL Hgb 13.6 (12.0-16.0) g/dL Hct 42.0 (36-46) % MCV 84.8 (80-100) fL MCH 27.5 (26-34) PG MCHC 32.5 (30-36) % RDW 15.5 H (11.6-14.8) % Plt Count 398 (150-400) X10^3/uL Neut % (Auto) 67.6 (50-75) % Lymph % (Auto) 25.8 (25-40) % [place] % (Auto) 6.0 (3-14) % Eos % (Auto) 0.3 L (2-4) % Baso % (Auto) 0.3 (0-2) % Neut # (Auto) 7000 (5433-6503) /uL Lymph # (Auto) 2700 (7607-5429) /uL [place] # (Auto) 600 (0-900) /uL Eos # (Auto) 0 (0-450) /uL Baso # (Auto) 0 (0-100) /uL PT 15.3 H (9.4-12.5) SECONDS INR 1.4 H (0.9-1.3) APTT 42 H (25.1-36.5) SECONDS Sodium 140 (137-145) mmol/L Potassium 3.8 (3.4-5.1) mmol/L Chloride 106 (98-107) mmol/L Carbon Dioxide 22 (22-32) mmol/L BUN 15 (7-17) mg/dL Creatinine 0.55 (0.52-1.04) mg/dL Estimated GFR > 60 (>60) mL/min BUN/Creatinine Ratio 27.3 H (6-22) Glucose 114 H (70-100) mg/dL Calcium 10.1 (8.4-10.2) mg/dL Magnesium 1.9 (1.6-2.3) mg/dL Total Bilirubin 0.7 (0.2-1.3) mg/dL AST 28 (14-36) IU/L ALT 18 (<35) IU/L Alkaline Phosphatase 71 (38-126) U/L Total Creatine Kinase 28 L (30-135) U/L Troponin I < 0.012 (0.01-0.034) ng/mL NT-Pro-B Natriuret Pep 29 (<125) pg/mL Total Protein 9.4 H (6.3-8.2) g/dL Albumin 5.1 H (3.5-5.0) g/dL Globulin 4.3 H (1.7-4.1) g/dL Albumin/Globulin Ratio 1.2 (1.0-2.8) Lipase 148 (23-300) U/L Urine RBC 0-1/hpf (0-5/HPF) Urine WBC 10-30/hpf H (0-5/HPF) Ur Squamous Epith Cells 1-5 /hpf (0-5/HPF) Urine Bacteria Moderate (10-30) H (None) Vol Urine Centrifuged 10ml (spun) SARS-CoV-2 (PCR) Negative (Negative) Influenza A (RT-PCR) Flu a negative (NEGATIVE) Influenza B (RT-PCR) Flu b negative (NEGATIVE) RSV (PCR) Negative (Negative) Urine Dip Bedside Urine Glucose Negative Bedside Urine Bilirubin - Negative Bedside Urine Ketone - Negative Urine Specific [place] 1.020 Bedside Urine Occult Blood - Negative Bedside Urine pH 6.0 Bedside Urine Protein - Negative Bedside Urine Urobilinogen 0.2 Bedside Urine Nitrite - Negative Bedside Urine Leukocytes + 70 Esterase Imaging Data Chest x-ray: Radiologist's Impresson: PROCEDURE: XR CHEST 1V INDICATIONS: chest pain TECHNIQUE: One view of the chest was acquired. COMPARISON: [facility], , XR CHEST 1V, 04/21/2024, 15:54. FINDINGS: Surgical changes and devices: None. Lungs and pleura: Lungs are clear. No pleural effusions or pneumothorax. Mediastinum: Mediastinal contours appear normal. Heart size is normal. Bones and chest wall: No suspicious bony lesions. Overlying soft tissues appear unremarkable. IMPRESSION: No acute cardiopulmonary abnormality is seen Extremity x-ray #1: Radiologist's Impresson: PROCEDURE: XR HAND RT MIN 3V INDICATIONS: R little finger pain TECHNIQUE: 4 views of the hand(s) acquired. COMPARISON: None. FINDINGS: Bones: There is a minimally displaced fracture of the base of the distal phalanx. No other displaced fracture is seen. Soft tissues: No suspicious calcifications. Dorsal IV in place. IMPRESSION: Fifth distal phalangeal base fracture. ECG Data Attestation: I personally reviewed and interpreted this ECG as follows: Interpretation: Sinus tachycardia Ventricular rate of 147 Normal axis Normal QRS Normal QTC No ST T wave changes MDM Narrative Medical decision making narrative: Patient was sinus tachycardia upon arrival and this did improve with 1 dose of propranolol. She was persistently below 90 however when I came into the room to do re-evaluations her heart rate went between 101 10. Patient is obviously very anxious and upset about the her medical health over the past several months. She does have bacteria and white blood cells in her urine but she has no UTI like symptoms. She was afebrile. We will wait for the urine culture before starting any antibiotics. I do not have another source of infection today. There was no other indication for antibiotics. Will send her home with a prescription for propranolol that she can take as needed. I do recommend that she contact her primary care doctor for a follow-up. She expressed understanding. Discharge Plan Departure Patient Disposition: Home Clinical Impression: Tachycardia, Finger fracture, right Instructions: DI for Tachycardia Activity Restrictions/Additional Instructions: I do recommend that you contact your primary care doctor's office for a follow-up. Continue to take all of your medications as directed. The medication that you were given a prescription for today him used as needed to help if your heart rate increase his. There was a urine culture pending at the time of your discharge we will contact you if we need to start antibiotics based on this. Return to the emergency department for new symptoms. Prescriptions: New propranolol 10 mg tablet 10 mg PO TID PRN (Reason: tachycardia) Qty: 30 0RF No Action apixaban 5 mg tablet 10 mg PO DIRECTED Qty: 70 0RF Rx Instructions: 10 mg BID for 6 days, then 5 mg BID thereafter (6 months) cephalexin 500 mg capsule 500 mg PO QID Qty: 20 0RF oxycodone 5 mg capsule 5 mg PO BID PRN (Reason: pain) Qty: 10 0RF hydroxyzine HCl 25 mg tablet 25 mg PO QID PRN (Reason: anxiety) Qty: 30 0RF Referrals: Lala Jacobsen ARNP [Primary Care Provider] - Stand Alone Forms: Patient Portal/API/Survey
--- NOTE | 2024-05-01 09:16 | DI.RAD.S_ITS ---
PROCEDURE: XR HAND RT MIN 3V INDICATIONS: R little finger pain TECHNIQUE: 4 views of the hand(s) acquired. COMPARISON: None. FINDINGS: Bones: There is a minimally displaced fracture of the base of the distal phalanx. No other displaced fracture is seen. Soft tissues: No suspicious calcifications. Dorsal IV in place. IMPRESSION: Fifth distal phalangeal base fracture. Dictated by: Rickie Reynolds M.D. on 05/01/2024 at 8:40 Approved by: Rickie Reynolds M.D. on 05/01/2024 at 8:41
[2024-05-01 09:19] LABS: Add Manual Diff / Slide Review NO; Basophils Absolute Auto 0 /uL (0-100); Basophils Percent Auto 0.3 % (0-2); Eosinophils Absolute Auto 0 /uL (0-450); Eosinophils Percent Auto 0.3 % (2-4); Hemoglobin 13.6 g/dL (12.0-16.0); Lymphocytes Absolute Auto 2700 /uL (1100-4500); Lymphocytes Percent Auto 25.8 % (25-40); Mean Corpuscular HGB Conc 32.5 % (30-36); Mean Corpuscular Hemoglobin 27.5 PG (26-34); Mean Corpuscular Volume 84.8 fL (80-100); Monocytes Absolute Auto 600 /uL (0-900); Neutrophils Absolute Auto 7000 /uL (1500-7000); Neutrophils Percent Auto 67.6 % (50-75); Platelet Count 398 X10^3/uL (150-400); Red Blood Cell Count 4.95 X10^6/uL (4.0-5.2); Red Cell Distribution Width 15.5 % (11.6-14.8); White Blood Cell Count 10.3 X10^3/uL (4.5-11.0)
[2024-05-01 09:31] LABS: INR 1.4 (0.9-1.3); Prothrombin Time 15.3 SECONDS (9.4-12.5)
[2024-05-01 09:34] LABS: PTT Partial Thromboplastin Tim 42 SECONDS (25.1-36.5)
[2024-05-01 09:36] LABS: Alanine Aminotransferase 18 IU/L (<35); Albumin 5.1 g/dL (3.5-5.0); Albumin Globulin Ratio 1.2 (1.0-2.8); Alkaline Phosphatase 71 U/L (38-126); Aspartate Aminotransferase 28 IU/L (14-36); BUN Creatinine Ratio 27.3 (6-22); Bilirubin Total 0.7 mg/dL (0.2-1.3); Blood Urea Nitrogen 15 mg/dL (7-17); Calcium 10.1 mg/dL (8.4-10.2); Carbon Dioxide 22 mmol/L (22-32); Chloride 106 mmol/L (98-107); Creatine Kinase 28 U/L (30-135); Estimated Glomerular Filt Rate > 60 mL/min (>60); Globulin 4.3 g/dL (1.7-4.1); Glucose 114 mg/dL (70-100); Lipase 148 U/L (23-300); Magnesium 1.9 mg/dL (1.6-2.3); Potassium 3.8 mmol/L (3.4-5.1); Sodium 140 mmol/L (137-145); Total Protein 9.4 g/dL (6.3-8.2)
[2024-05-01 09:42] LABS: HEMOLYSIS < 15 (0-50)
[2024-05-01 09:46] LABS: NT-proBNP (BNP-Adult 18+) 29 pg/mL (<125)
[2024-05-01 09:47] LABS: Troponin I < 0.012 ng/mL (0.01-0.034)
[2024-05-01] MEDS: PROPRANOLOL 10 MG TABLET 20 MG PO (09:48)
[2024-05-01 10:00] LABS: Influenza A - CEPHEID Flu A NEGATIVE (NEGATIVE); Influenza B - CEPHEID Flu B NEGATIVE (NEGATIVE); Respiratory Syncytial Virus Negative (Negative)
[2024-05-01 10:03] LABS: COVID-19 CEPHEID 4-PLEX PCR Negative (Negative)
[2024-05-01] MEDS: ACETAMINOPHEN 325 MG TABLET 650 MG PO (10:46)
[2024-05-01 11:17] LABS: RBC Urine 0-1/HPF (0-5/HPF); Urine Volume 10mL (spun)
[2024-05-01 11:18] LABS: Bacteria Urine Moderate (10-30); Squamous Epithelial Cell Urine 1-5 /HPF (0-5/HPF); WBC Urine 10-30/HPF (0-5/HPF)
== END 2024-05-01 11:49 | disposition home or self-care (01) ==
PROVIDERS: Emergency Provider Emergency Medicine; PCP Registered Nurse
DX: S62.636A Displaced fracture of distal phalanx of right little finger, initial encounter for closed fracture (principal); R11.0 Nausea; R68.83 Chills (without fever); R00.0 Tachycardia, unspecified; W01.0XXA Fall on same level from slipping, tripping and stumbling without subsequent striking against object, initial encounter; Z79.01 Long term (current) use of anticoagulants; Z86.711 Personal history of pulmonary embolism; Z87.19 Personal history of other diseases of the digestive system
CPT/HCPCS: 87635; 87400 ×2; 87420; 0241U; 29130; 36415; 71045; 73130; 80053; 81003; 81015; 82550; 83690; 83735; 83880; 84484; 85025; 85610; 85730; 87086; 93005; 99284

== ENCOUNTER 2025-01-17 18:45 | Emergency (ER) | payer OTHER, SELFPAY ==
[2024-04-04 16:34] VITALS: BMI 20.3
[2025-01-17] VITALS (11 sets, daily range): BP systolic 118–140; BP diastolic 80–91; PULSE 118–149; RESP 13–20; TEMP 36.1; O2SAT 97–100; BMI 21.1
--- NOTE | 2025-01-17 19:10 | PC.NURSE ---
attempted to clean pt's laceration with water, pt unable to tolerate light touch cleaning, pt even withdrawing and not allowing cleaning of the other areas of dried blood on the arm
--- NOTE | 2025-01-17 19:14 | DI.RAD.S_ITS ---
PROCEDURE: XR FOREARM RT 2V INDICATIONS: injury TECHNIQUE: 2 views of the forearm were acquired. COMPARISON: None. FINDINGS: Bones: No fractures or dislocations. No suspicious bony lesions. Soft tissues: No suspicious soft tissue calcifications or masses. IMPRESSION: No acute osseous abnormality. If pain persists with conservative management, consider repeat x-ray in 10-14 days or cross-sectional imaging. Dictated by: Terell Hampton M.D. on 01/17/2025 at 19:46 Approved by: Terell Hampton M.D. on 01/17/2025 at 19:46
--- NOTE | 2025-01-17 20:35 | EKG_ITS ---
[facility] [address] [place] [address] Test Date: 2025-01-17 Pat Name: Zena Hawley Department: [facility] Room: Gender: Female Home Lending Officer: ADRIANA : 1995 Requested By: Order Number: [id number] Reading MD: Lamont Fenton MD Measurements Intervals [place] Rate: 144 P: 71 MA: 124 QRS: -37 QRSD: 92 T: 63 QT: 280 QTc: 433 Interpretive Statements Critical Test Result: High HR Sinus tachycardia Possible Left atrial enlargement Left axis deviation Incomplete right bundle branch block NO SIGNIFICANT CHANGE FROM PRIOR TRACING Electronically Signed On 01-18-2025 6:47:59 PDT by Lamont Fenton MD
--- NOTE | 2025-01-17 20:47 | DI.CT.S_ITS ---
PROCEDURE: CT TRAUMA CHEST ABDOMEN PELVIS INDICATIONS: rock climbing fell 10ft on back TECHNIQUE: After the administration of intravenous contrast, 5 mm thick sections acquired from the lung apices to the symphysis. 2.5 mm thick coronal and sagittal reformats were acquired. Additional 7 mm thick coronal maximum intensity projection (MIP) reformats acquired through the lungs. Optional 10-minute delayed imaging may be performed from the kidneys to the bladder. For radiation dose reduction, the following was used: automated exposure control, adjustment of mA and/or kV according to patient size. COMPARISON: None. FINDINGS: Image quality: Diagnostic. CHEST: Lower Neck: No enlarged lymph nodes. Thyroid: No thyroid nodules which require sonographic evaluation. Axillae: No enlarged lymph nodes. Chest Wall: No subcutaneous gas. Lungs and Pleura: No pulmonary contusions or lacerations. No acute airspace opacities. No pneumothorax or hemothorax. Mediastinum: No mediastinal hematomas. Heart size is normal. No pericardial effusion. Thoracic aorta and pulmonary arteries demonstrate normal size and enhancement. No mediastinal or hilar adenopathy. Esophagus is normal in caliber. No hiatal hernia. ABDOMEN: Liver: No lacerations. Gallbladder: No radiopaque gallstones or wall thickening. Biliary ducts: No biliary dilation. Pancreas: Homogenous enhancement. Spleen: Homogenous enhancement without laceration or hematoma. Adrenal Glands: Symmetric enhancement. Kidneys and Ureters: Symmetric enhancement. No hydronephrosis. No solid mass. No complex renal cystic lesion which requires follow up. Stomach and Bowel: Normal colonic caliber, without significant wall thickening. Peritoneum: No abnormal intraperitoneal fluid. No free air. Ventral Wall: No hernia. Abdominal Nodes: No retroperitoneal or mesenteric adenopathy by size criteria. Vessels: Aorta and inferior vena cava are normal in size. PELVIS: Pelvic Organs: Unremarkable. Bladder: Normal thickness. Pelvic Nodes: No enlarged lymph nodes. Miscellaneous: No inguinal hernias are seen. Bones: Pelvic ring and hip joints appear intact. No displaced rib fractures. IMPRESSION: No acute traumatic lesions seen Dictated by: Vicente Fernanedz M.D. on 01/17/2025 at 21:36 Approved by: Vicente Fernandez M.D. on 01/17/2025 at 21:46
--- NOTE | 2025-01-17 20:47 | DI.CT.S_ITS ---
PROCEDURE: CT CERVICAL SPINE WO CON INDICATIONS: fell 10 feet, rock climbing TECHNIQUE: Noncontrast 3 mm thick sections acquired from the skull base to the T4 level. Sagittal and coronal reformats were then constructed. For radiation dose reduction, the following was used: automated exposure control, adjustment of mA and/or kV according to patient size. COMPARISON: None. FINDINGS: Image quality: Diagnostic Bones: No fractures or dislocations. Visualized superior ribs are intact. Soft tissues: Prevertebral soft tissues are normal in thickness. No paravertebral hematomas. No apical pneumothoraces. IMPRESSION: No acute displaced fracture or traumatic subluxation. Approved by: Aissatou Scott M.D.,Ph.D. on 01/17/2025 at 22:02
--- NOTE | 2025-01-17 20:47 | DI.CT.S_ITS ---
PROCEDURE: CT HEAD/BRAIN WO CON INDICATIONS: fell 10 ft, rock climbing TECHNIQUE: Noncontrast 4.5 mm thick angled axial sections acquired from the foramen magnum to the vertex, with coronal and sagittal reformats. For radiation dose reduction, the following was used: automated exposure control, adjustment of mA and/or kV according to patient size. COMPARISON: None. FINDINGS: Image quality: Diagnostic. CSF spaces: Basal cisterns are patent. No extra-axial fluid collections. Ventricles are normal in size and shape. Brain: No midline shift. No intracranial mass effect or hemorrhage. Colon- white matter interface is normal. Skull and face: Calvarium and visualized facial bones are intact, without suspicious lesions. Sinuses: Visualized sinuses and mastoids are clear. IMPRESSION: No acute intracranial pathology. Approved by: Aissatou Scott M.D.,Ph.D. on 01/17/2025 at 21:59
[2025-01-17] MEDS: SODIUM CHLORIDE 0.9% 1,000 ML 1000 ML IV (21:13)
[2025-01-17 21:16] LABS: Add Manual Diff / Slide Review NO; Hematocrit 43.6 % (36-46); Hemoglobin 15.1 g/dL (12.0-16.0); Lymphocytes Absolute Auto 2300 /uL (1100-4500); Mean Corpuscular HGB Conc 34.5 % (30-36); Mean Corpuscular Hemoglobin 32.7 PG (26-34); Mean Corpuscular Volume 94.8 fL (80-100); Platelet Count 400 X10^3/uL (150-400)
[2025-01-17] MEDS: ONDANSETRON 4 MG/2 ML INJ IV (21:23)
[2025-01-17 21:42] LABS: Alanine Aminotransferase 14 IU/L (<35); Albumin 4.9 g/dL (3.5-5.0); Albumin Globulin Ratio 1.4 (1.0-2.8); Alkaline Phosphatase 57 U/L (38-126); Blood Urea Nitrogen 14 mg/dL (7-17); Calcium 9.8 mg/dL (8.4-10.2); Carbon Dioxide 25 mmol/L (22-32); Chloride 104 mmol/L (98-107); Estimated Glomerular Filt Rate > 60 mL/min (>60); Globulin 3.4 g/dL (1.7-4.1); Glucose 96 mg/dL (70-99); HEMOLYSIS < 15 (0-50); Lipase 51 U/L (23-300); Potassium 3.9 mmol/L (3.4-5.1); Sodium 139 mmol/L (137-145); Total Protein 8.3 g/dL (6.3-8.2)
--- NOTE | 2025-01-17 23:24 | ED_ITS ---
HPI - Wound/Laceration General Chief Complaint: Wound/Laceration Stated Complaint: left hand injury Time Seen by Provider: 01/17/25 20:40 Source: patient Mode of arrival: Ambulatory History of Present Illness HPI narrative: 29-year-old woman with a medical history significant for bowel obstruction with significant complications leading to pulmonary embolism and significant surgical resection recovered from all of those off all medication was rock climbing today fell approximately 10 ft landing on her back and left flank. She did have a helmet on but felt somewhat unsteady as her friend helped her to the car and then to the emergency department. She is complaining of right wrist pain and severe left flank and back pain. Having difficulty lying back in the bed secondary to pain. She is significantly tachycardic and appears obviously uncomfortable. She is in no respiratory distress and able to speak in complete sentences Related Data Previous Rx's ?Medication ?Instructions ?Recorded apixaban 5 mg tablet 10 mg (2 x 5 mg) PO DIREC KALPANA 04/05/24 #70 tabs cephalexin 500 mg capsule 500 mg PO QID #20 caps 04/05 oxycodone 5 mg capsule 5 mg PO BID PRN pain #10 cap s 04/05/24 hydroxyzine HCl 25 mg tablet 25 mg PO QID PRN anxiety #30 tabs 04/21/24 propranolol 10 mg tablet 10 mg PO TID PRN tachycardia #30 05/01/24 tabs ondansetron 4 mg disintegrating 4 mg PO Q8H PRN nausea and 01/17/25 tablet vomiting #20 tabs oxycodone-acetaminophen 5 mg-325 1 tab PO Q6H PRN pain #20 tabs 01/17/25 mg tablet Allergies Allergy/AdvReac Type Severity Reaction Status Date / Time cyclobenzaprine (From Allergy Verified 03/23/24 09:29 Flexeril) promethazine (From Phenergan) Allergy Verified 03/23/24 09:29 Review of Systems Review of Systems Narrative: Pertinent positive and negative findings as per HPI Patient History Social History household members: significant other alcohol intake: never alcohol intake frequency: holidays/special occasions only Exam Initial Vital Signs Initial Vital Signs: Vital Signs Temperature 97 F L 01/17/25 19:08 Pulse Rate 149 H 01/17/25 19:08 Respiratory Rate 18 01/17/25 19:08 Blood Pressure 139/83 01/17/25 19:08 Pulse Oximetry 97 01/17/25 19:08 Oxygen Delivery Method Room Air 01/17/25 19:08 General: Appears uncomfortable, able to speak in complete sentences HEENT: Moist mucous membranes, normal sclera with reactive pupils, Neck: No midline cervical spine tenderness Respiratory: Lungs are clear to auscultation, no wheezing no rales no rhonchi. Full and symmetrical air movement Spine: No thoracic spine tenderness. Lumbar spine proximally L1-L2 midline tenderness. Cardiac: Tachycardic but otherwise Regular rate and rhythm no murmurs no bruits Abdomen: Tender left lower quadrant and left flank with some abrasions to the left flank. Skin: Abrasions to the left flank appreciated. She has an abrasion superficial laceration to the lateral aspect of the right forearm Neurologic: Grossly neurologically intact with no obvious asymmetries or abnormalities Extremities: Right wrist is tender with associated abrasion. No pelvic pain, she was able [place] Psych: Cooperative, appropriate insight and affect Course Orders Ordered: ED Orders 01/17/25 19:14 XR forearm RT 2V Stat 01/17/25 20:35 EKG-12 Lead Stat 01/17/25 20:47 CT Trauma Chest Abdomen Pelvis Stat CT cervical spine wo con Stat CT head/brain wo con Stat 01/17/25 21:05 Complete Blood Count AUTO DIFF Stat Comprehensive Metabolic Panel Stat Lipase Stat Hydromorphone HCl (Hydromorphone Hcl 0.5 Mg/0.5 Ml Syringe) 0.5 mg IV Q15MIN PRN PRN Reason: Pain, Last Admin: 01/17/25 21:23 Dose: 0.5 mg Documented By: MC Discontinued Medications Sodium Chloride (Normal Saline 0.9%) 1,000 mls @ 1,000 mls/hr IV BOLUS ONE Stop: 01/17/25 21:49 Last Infusion: 01/17/25 22:19 Dose: Infused Documented By: Admin: 01/17/25 21:13 Dose: 1,000 mls/hr Documented By: MC Ketorolac Tromethamine (Ketorolac 30 Mg/Ml Vial) 15 mg IV NOW ONE Stop: 01/17/25 23:24 Last Admin: 01/17/25 23:53 Dose: 15 mg Ondansetron HCl (Ondansetron 4 Mg/2 Ml Inj) 4 mg IV NOW ONE Stop: 01/17/25 20:51 Last Admin: 01/17/25 21:23 Dose: 4 mg Documented By: MC Ondansetron HCl (Ondansetron 4 Mg Odt Prepack) 1 bottle MISC DIRECTED ONE Stop: 01/17/25 23:24 Last Admin: 01/17/25 23:54 Dose: 1 bottle Oxycodone/Acetaminophen (Oxycodone/Acetaminophen 5/325 Tablet) 2 tab PO NOW ONE Stop: 01/17/25 23:24 Last Admin: 01/17/25 23:54 Dose: 2 tab Oxycodone/Acetaminophen (Oxycodone/Apap 5/325 Prepack) 1 bottle MISC DIRECTED ONE Stop: 01/17/25 23:24 Last Admin: 01/17/25 23:54 Dose: 1 bottle Vital Signs Vital signs: Vital Signs - 8 hr 01/17/25 19:08 01/17/25 20:30 01/17/25 20:33 Temperature 97 F L Pulse Rate 149 H 137 H Respiratory Rate 18 Blood Pressure 139/83 119/91 H Pulse Oximetry 97 98 Oxygen Delivery Method Room Air 01/17/25 20:33 01/17/25 21:00 01/17/25 21:29 Temperature Pulse Rate 134 H 129 H 138 H Respiratory Rate 20 Blood Pressure Pulse Oximetry 98 98 100 Oxygen Delivery Method 01/17/25 21:29 01/17/25 21:30 01/17/25 21:31 Temperature Pulse Rate 140 H 137 H Respiratory Rate 17 Blood Pressure 140/80 Pulse Oximetry 100 100 Oxygen Delivery Method 01/17/25 21:31 01/17/25 22:00 01/17/25 22:00 Temperature Pulse Rate 127 H Respiratory Rate 18 Blood Pressure 118/80 121/89 Pulse Oximetry 100 Oxygen Delivery Method MDM - Wound/Laceration Lab Data 01/17/25 21:05 01/17/25 21:05 Labs: Lab Results 01/17/25 Range/Units 21:05 WBC 10.5 (4.5-11.0) X10^3/uL RBC 4.61 (4.0-5.2) X10^6/uL Hgb 15.1 (12.0-16.0) g/dL Hct 43.6 (36-46) % MCV 94.8 (80-100) fL MCH 32.7 (26-34) PG MCHC 34.5 (30-36) % RDW 13.4 (11.6-14.8) % Plt Count 400 (150-400) X10^3/uL Neut % (Auto) 71.2 (50-75) % Lymph % (Auto) 21.4 L (25-40) % Bonner % (Auto) 7.0 (3-14) % Eos % (Auto) 0.2 L (2-4) % Baso % (Auto) 0.2 (0-2) % Neut # (Auto) 7500 H (3747-3768) /uL Lymph # (Auto) 2300 (9795-7701) /uL Bonner # (Auto) 700 (0-900) /uL Eos # (Auto) 0 (0-450) /uL Baso # (Auto) 0 (0-100) /uL Sodium 139 (137-145) mmol/L Potassium 3.9 (3.4-5.1) mmol/L Chloride 104 (98-107) mmol/L Carbon Dioxide 25 (22-32) mmol/L BUN 14 (7-17) mg/dL Creatinine 0.70 (0.52-1.04) mg/dL Estimated GFR > 60 (>60) mL/min BUN/Creatinine Ratio 20.0 (6-22) Glucose 96 (70-99) mg/dL Calcium 9.8 (8.4-10.2) mg/dL Total Bilirubin 0.9 (0.2-1.3) mg/dL AST 22 (14-36) IU/L ALT 14 (<35) IU/L Alkaline Phosphatase 57 (38-126) U/L Total Protein 8.3 H (6.3-8.2) g/dL Albumin 4.9 (3.5-5.0) g/dL Globulin 3.4 (1.7-4.1) g/dL Albumin/Globulin Ratio 1.4 (1.0-2.8) Lipase 51 (23-300) U/L MDM Narrative Medical decision making narrative: CC: Template fall while mountain climbing landing on her back and left flank. Standby trauma called Complicating co-morbidities: Prior bowel obstruction, surgeries and PE secondary to hospitalization, currently off all medications Data collected from: patient Differential considered: Sequelae of blunt trauma including internal hemorrhage, splenic laceration, spine fracture, pelvic fracture, wrist fracture Exam documented above, pertinent findings include: Left lower quadrant abdominal pain left flank pain concern for splenic abnormality. Tenderness of the right risk with minor abrasion concern for fracture. Abrasion over the left flank with concern for lumbar spine fracture Lab Test results independently reviewed as above. Pertinent findings: CBC is reassuring with no evidence of anemia Chemistries are unremarkable Imaging studies independently reviewed: CT scan of the head is unremarkable CT of the C-spine shows no fracture CT of the chest abdomen and pelvis does not show internal injury, internal hemorrhage, pneumothorax or thoracic lumbar or pelvic fracture Treatments: Fluids, pain medication, 1.5cm Superficial laceration to the lateral aspect of the right arm is reapproximated with glue and Steri-Strips. Discussion: 29-year-old woman template fall while rock climbing. Significant abrasion and contusion to the left flank without underlying internal injury, hemorrhage or fractures. Contusion to the right wrist without underlying fracture. Superficial laceration on the forearm repaired. No evidence of internal bleeding. I suspect that there is a bit of concussion and we did discuss postconcussion syndrome. Again reviewed with her negative head CT. She will be sent home with Percocet and Zofran. Explained anticipated course of recovery including the fact that she is going to be more sore over the next 24- 48 hours. Discussed early mobilization and reasons to return to the emergency department. She is safe for discharge Discharge Plan Departure Patient Disposition: Home Clinical Impression: Fall, Contusion of left flank, Contusion of lumbar spinal region, Acute pain of right wrist, Laceration of forearm, right Concussion Qualifiers: Encounter type: initial encounter Loss of consciousness presence/duration: w ithout LOC Qualified Code(s): S06.0X0A - Concussion without loss of consciousness, initial encounter Instructions: DI for Contusion, DI for Postconcussion Syndrome, DI for Minor Laceration Activity Restrictions/Additional Instructions: Thank you for coming into 10 ft onto a hard young service is quite an injury. Fortunately, there is no bleeding in your brain, no fractures along your cervical thoracic or lumbar spine. No pelvic fractures. There was no internal organ injury and no internal bleeding The contusion and abrasion on your left flank is going to be tender and likely increasingly tender over the 1st 24-48 hours after the incident. You are likely going to find additional areas that are sore as well. Using 400 mg of ibuprofen (2 [id number] pills) and 1 Tylenol every 6 hours can be very helpful in controlling pain. For severe pain 400 mg of ibuprofen and 1 Percocet we will be helpful. Percocet is a narcotic and will cause constipation as will pain and the slowed overall movement you are going to be experiencing over the next couple of days. I would encourage you to take a stool softener or use at least a scoop of MiraLax daily to prevent constipation The small cut on your right arm was quite superficial, was not deep enough to require stitches. We used tissue adhesive and Steri-Strips to try to make the scar is small as possible. The Steri-Strips we will begin to peel off, you can clip away the edges. Would be best if the skin glue can stay in place for 5-7 days but up to 3 days will likely be adequate. I am very glad that you are wearing a helmet, I still think that you do have a small amount of concussion. I have given you some instructions on postconcussion syndrome. Sometimes it just takes a couple of days for your brain to recover completely. You may find that you are more irritable, have difficulty remembering things, are nauseated throughout the day. The nausea medication I prescribed can certainly help. Simply resting and allowing your brain to heal with minimal screen time and minimal time watching TV or trying to read. Prescriptions were electronically transmitted [facility] If you find that you are getting worse or develop any new symptoms, please feel free to return to the emergency department for further evaluation. Prescriptions: New oxycodone-acetaminophen 5-325 mg tablet 1 tab PO Q6H PRN (Reason: pain) Qty: 20 0RF ondansetron 4 mg tablet,disintegrating 4 mg PO Q8H PRN (Reason: nausea and vomiting) Qty: 20 0RF No Action apixaban 5 mg tablet 10 mg PO DIRECTED Qty: 70 0RF Rx Instructions: 10 mg BID for 6 days, then 5 mg BID thereafter (6 months) cephalexin 500 mg capsule 500 mg PO QID Qty: 20 0RF oxycodone 5 mg capsule 5 mg PO BID PRN (Reason: pain) Qty: 10 0RF hydroxyzine HCl 25 mg tablet 25 mg PO QID PRN (Reason: anxiety) Qty: 30 0RF propranolol 10 mg tablet 10 mg PO TID PRN (Reason: tachycardia) Qty: 30 0RF Referrals: Lala Jacobsen ARNP [Primary Care Provider, Family Practice] Stand Alone Forms: Patient Portal/API
[2025-01-17] MEDS: KETOROLAC 30 MG/ML VIAL 15 MG IV (23:53)
[2025-01-17] MEDS: ONDANSETRON 4 MG ODT PREPACK 1 BOTTLE MISC (23:54)
[2025-01-18] VITALS: BP 126/83; PULSE 118; RESP 18
== END 2025-01-18 00:35 | disposition home or self-care (01) ==
PROVIDERS: Emergency Provider Emergency Medicine; PCP Registered Nurse
DX: S06.0X0A Concussion without loss of consciousness, initial encounter (principal); S30.0XXA Contusion of lower back and pelvis, initial encounter; S51.811A Laceration without foreign body of right forearm, initial encounter; M25.531 Pain in right wrist; R00.0 Tachycardia, unspecified; W17.89XA Other fall from one level to another, initial encounter; Y93.31 Activity, mountain climbing, rock climbing and wall climbing
CPT/HCPCS: 36415; 70450; 71275; 72125; 73090; 74177; 80053; 83690; 85025; 93005; 96361; 96374; 96375; 99284; J1171; J1885; J2405; Q9967

== ENCOUNTER 2025-01-24 07:24 | Emergency (ER) | payer SELFPAY ==
[2024-04-04 16:34] VITALS: BMI 20.3
[2025-01-24 07:30] VITALS: BP 101/73; PULSE 85; RESP 18; TEMP 36.6; O2SAT 100; BMI 20.3
[2025-01-24 08:07] LABS: Appearance Urine UA CLOUDY; Bilirubin Urine UA 1+ (NEGATIVE); Color Urine UA YELLOW; Glucose Urine UA NEGATIVE (Negative); Ketones Urine UA NEGATIVE (NEGATIVE); Leukocyte Esterase Urine UA 2+ (NEGATIVE); Nitrite Urine UA POSITIVE (Negative); Occult Blood Urine UA 3+ (Negative); Protein Urine UA 3+ (Negative); Specific Gravity Urine UA 1.020 (1.000-1.035); Urobilinogen Urine UA 1.0 E.U./dL (0.2)
[2025-01-24 08:08] LABS: pH Urine UA 6.5 (4.5-8.0)
[2025-01-24 08:10] LABS: Culture Indicated Urine Specimen Cultured; Ictotest Urine Negative (Negative)
--- NOTE | 2025-01-24 08:29 | ED_ITS ---
HPI - Female Genitourinary General Chief complaint: Urogenital-Female Stated complaint: Peeing blood Time Seen by Provider: 01/24/25 07:41 Source: patient Mode of arrival: Ambulatory History of Present Illness HPI Narrative: This is a 29-year-old female presenting with flank pain and hematuria. She also has pain with urination and abdominal and bilateral flank pain left greater than right. Patient has nausea associated chills last night he is not sure about fevers. She has not had similar symptoms in the past. She has never had a kidney stone. She says that she has a history of bowel perforation with prolonged hospitalization and subsequent pulmonary embolism for which she was on anticoagulation treatment but is no longer taking a blood thinner. Related Data Previous Rx's ?Medication ?Instructions ?Recorded apixaban 5 mg tablet 10 mg (2 x 5 mg) PO DIREC [facility]NA 04/05/24 #70 tabs cephalexin 500 mg capsule 500 mg PO QID #20 caps 04/05 oxycodone 5 mg capsule 5 mg PO BID PRN pain #10 cap s 04/05/24 hydroxyzine HCl 25 mg tablet 25 mg PO QID PRN anxiety #30 tabs 04/21/24 propranolol 10 mg tablet 10 mg PO TID PRN tachycardia #30 05/01/24 tabs ondansetron 4 mg disintegrating 4 mg PO Q8H PRN nausea and 01/17/25 tablet vomiting #20 tabs oxycodone-acetaminophen 5 mg-325 1 tab PO Q6H PRN pain #20 tabs 01/17/25 mg tablet cefdinir 300 mg capsule 300 mg PO BID 5 days #10 cap s 01/24/25 polyethylene glycol 3350 17 17 g PO DAILY #119 grams 0 01/24/25 gram/dose oral powder (Miralax) Allergies Allergy/AdvReac Type Severity Reaction Status Date / Time cyclobenzaprine (From Allergy hives Verified 01/24/25 07:31 Flexeril) promethazine (From Phenergan) Allergy Hives Verified 01/24/25 07:31 Exam Narrative Exam Narrative: Alert and tearful, appears anxious. HEENT oral mucosa is moist Neck is supple Lungs are clear Heart sounds are normal Abdomen there is a midline surgical scar, normal bowel sounds soft diffusely tender especially right and left lower quadrant. Has bilateral CVAT left greater than right. Spine there is no midline tenderness of the thoracic or lumbar spine Initial Vital Signs Initial Vital Signs: Vital Signs Temperature 97.8 F 01/24/25 07:30 Pulse Rate 85 01/24/25 07:30 Respiratory Rate 18 01/24/25 07:30 Blood Pressure 101/73 01/24/25 07:30 Pulse Oximetry 100 01/24/25 07:30 Oxygen Delivery Method Room Air 01/24/25 07:30 Course Orders Ordered: ED Orders 01/24/25 07:37 CBC Auto Diff [Complete Blood Count AUTO DIFF] Stat CMP [Comprehensive Metabolic Panel] Stat Lactate (Lactic Acid) Stat 01/24/25 07:50 Ictotest Urine Stat Urinalysis and Microscopic Stat Urine Culture Stat 01/24/25 08:27 CT abdomen pelvis w con Stat 01/24/25 09:10 Blood Culture Stat Ondansetron HCl (Ondansetron 4 Mg/2 Ml Inj) 4 mg IV NOW PRN PRN Reason: Nausea And Vomiting Last Admin: 01/24/25 09:29 Dose: 4 mg Documented By: ALLIE Ondansetron HCl (Ondansetron 4 Mg Odt) 4 mg PO NOW PRN PRN Reason: Nausea And Vomiting Discontinued Medications Hydromorphone HCl (Hydromorphone Hcl 0.5 Mg/0.5 Ml Syringe) 1 mg IV NOW ONE Stop: 01/24/25 09:46 Last Admin: 01/24/25 09:56 Dose: 1 mg Documented By: ALLIE Ceftriaxone Sodium 2,000 mg/ (Sodium Chloride) 100 mls @ 200 mls/hr IV NOW ONE Stop: 01/24/25 08:28 Last Admin: 01/24/25 09:30 Dose: 200 mls/hr Documented By: ALLIE Vital Signs Vital signs: Vital Signs - 8 hr 01/24/25 07:30 Temperature 97.8 F Pulse Rate 85 Respiratory Rate 18 Blood Pressure 101/73 Pulse Oximetry 100 Oxygen Delivery Method Room Air MDM - Female Genitourinary Lab Data Lab results narrative: White count is minimally elevated. Urinalysis is consistent with the infection, test is negative chemistries are reassuring. 01/24/25 07:37 01/24/25 07:37 Labs: Lab Results 01/24/25 01/24/25 Range/Units 07:37 07:50 WBC 11.4 H (4.5-11.0) X10^3/uL RBC 4.65 (4.0-5.2) X10^6/uL Hgb 14.8 (12.0-16.0) g/dL Hct 43.9 (36-46) % MCV 94.4 (80-100) fL MCH 31.9 (26-34) PG MCHC 33.8 (30-36) % RDW 13.6 (11.6-14.8) % Plt Count 364 (150-400) X10^3/uL Neut % (Auto) 76.2 H (50-75) % Lymph % (Auto) 17.3 L (25-40) % Banner % (Auto) 5.8 (3-14) % Eos % (Auto) 0.5 L (2-4) % Baso % (Auto) 0.2 (0-2) % Neut # (Auto) 8600 H (2455-9670) /uL Lymph # (Auto) 2000 (1734-6213) /uL Banner # (Auto) 700 (0-900) /uL Eos # (Auto) 100 (0-450) /uL Baso # (Auto) 0 (0-100) /uL Sodium 136 L (137-145) mmol/L Potassium 4.1 (3.4-5.1) mmol/L Chloride 99 (98-107) mmol/L Carbon Dioxide 27 (22-32) mmol/L BUN 13 (7-17) mg/dL Creatinine 0.77 (0.52-1.04) mg/dL Estimated GFR > 60 (>60) mL/min BUN/Creatinine Ratio 16.9 (6-22) Glucose 97 (70-99) mg/dL Lactate 0.6 L (0.7-2.1) mmol/L Calcium 9.5 (8.4-10.2) mg/dL Total Bilirubin 1.0 (0.2-1.3) mg/dL AST 29 (14-36) IU/L ALT 13 (<35) IU/L Alkaline Phosphatase 54 (38-126) U/L Total Protein 8.3 H (6.3-8.2) g/dL Albumin 4.8 (3.5-5.0) g/dL Globulin 3.5 (1.7-4.1) g/dL Albumin/Globulin Ratio 1.4 (1.0-2.8) Urine Color Yellow Urine Appearance Cloudy Urine pH 6.5 (4.5-8.0) Ur Specific Braggs 1.020 (1.000-1.035) Urine Protein 3+ H (Negative) Urine Glucose (UA) Negative (Negative) g/dL Urine Ketones Negative (NEGATIVE) Urine Occult Blood 3+ H (Negative) Urine Nitrate Positive H (Negative) Urine Bilirubin 1+ H (NEGATIVE) Ur Bilirubin Confirm Negative (Negative) Urine Urobilinogen 1.0 (0.2) E.U./dL Ur Leukocyte Esterase 2+ H (NEGATIVE) Urine RBC >100/hpf H (0-5/HPF) Urine WBC >100/hpf H (0-5/HPF) Ur Squamous Epith Cells None seen (0-5/HPF) Urine Bacteria Many (>30) H (None) Ur Culture Indicated? Specimen cultured Vol Urine Centrifuged Low vol <10ml (spun) A Point of Care Testing Test Results Negative Imaging Data CT scan - abdomen/pelvis: My Impression: Independently reviewed CT abdomen and pelvis, no hydronephrosis, no abnormal enhancement of the right lower quadrant or left lower quadrant no ureteral stone Radiologist's Impression: [place] [address] CT Scan Report Signed Patient: Zena Hawley MR#: [id number] : 1995 Acct:[id number] Age/Sex: 29 / F Date of Service: 01/24/25 Loc: ED Accession Number: [id number] Procedure: CT abdomen pelvis w con Ordering Provider: Kalen Ellison MD PROCEDURE: CT ABDOMEN PELVIS W CON INDICATIONS: flank pain stone suspected TECHNIQUE: After the administration of intravenous contrast, axial sections acquired from the lung bases to the pubic symphysis. Coronal and sagittal reformats were performed. For radiation dose reduction, the following was used: automated exposure control, adjustment of mA and/or kV according to patient size. COMPARISON: [facility], CT, CT TRAUMA CHEST ABDOMEN PELVIS, 01/17/2025, 20:58. [facility], CT, CT ABDOMEN PELVIS W CON, 04/04/2024, 12:21. FINDINGS: Image quality: Diagnostic. Lower Chest: No significant findings. ABDOMEN: Liver: No solid mass. Gallbladder: No radiopaque gallstones or wall thickening. Biliary ducts: No biliary dilation. Pancreas: No ductal dilation. Spleen: Size is within normal limits. Adrenal Glands: No adrenal nodules. Kidneys and Ureters: No hydronephrosis. No solid mass. No complex renal cystic lesion which requires follow up. Stomach and Bowel: Normal colonic caliber, without significant wall thickening. Moderate colonic stool without obstruction. Peritoneum: No abnormal intraperitoneal fluid. No free air. Ventral Wall: No significant ventral hernia. Abdominal Nodes: No retroperitoneal or mesenteric adenopathy by size criteria. Vessels: Aorta and inferior vena cava are normal in size. PELVIS: Pelvic Organs: Unremarkable. Bladder: No bladder wall thickening, accounting for underdistention. Pelvic Nodes: No enlarged lymph nodes. Miscellaneous: No inguinal hernias are seen. Bones: No aggressive osseous abnormality. IMPRESSION: No visualized acute intra-abdominal or pelvic process. Moderate colonic stool. Dictated by: Catalina Sharma M.D. on 01/24/2025 at 9:12 Approved by: Catalina Sharma M.D. on 01/24/2025 at 9:16 [facility] Narrative Medical decision making narrative: 29-year-old female with a history of pulmonary embolism but not presently anticoagulated complaining of hematuria and dysuria. She is not febrile does not appear to be toxic has a mild leukocytosis without hypotension. I do not think that she is septic, because she had significant flank pain I obtained a CT and there is no hydronephrosis or stone. CT did show some evidence of increased colonic stool so I started her on MiraLax. She was given ceftriaxone in the emergency department and a prescription for cefdinir. She is to follow up with her primary care provider, indications for return to the emergency department were reviewed Discharge Plan Departure Patient Disposition: Home Clinical Impression: Cystitis Hematuria Qualifiers: Hematuria type: gross Qualified Code(s): R31.0 - Gross hematuria Instructions: DI for Urinary Tract Infection (UTI) Activity Restrictions/Additional Instructions: Today, we saw you for painful urination with bloody urine. This is consistent with a urinary tract infection and your urinalysis does look like you have an infection. We going to a dose of antibiotics in the emergency department, this will cover you for 24 hours. After that, take the prescribed cefdinir twice daily for the full course. You can use acetaminophen and/or ibuprofen as needed for pain. Get adequate fluids. It also looks like you might have some stool buildup in your colon so I sent a prescription for MiraLax, take this until your stooling regularly. Follow up soon with your primary care provider. If you develop fevers, shaking chills uncontrolled vomiting increasing pain or other acute symptoms recheck in the emergency department Prescriptions: New polyethylene glycol 3350 [Miralax] 17 gram/dose powder 17 g PO DAILY Qty: 119 0RF cefdinir 300 mg capsule 300 mg PO BID 5 Days Qty: 10 0RF No Action oxycodone-acetaminophen 5-325 mg tablet 1 tab PO Q6H PRN (Reason: pain) Qty: 20 0RF ondansetron 4 mg tablet,disintegrating 4 mg PO Q8H PRN (Reason: nausea and vomiting) Qty: 20 0RF apixaban 5 mg tablet 10 mg PO DIRECTED Qty: 70 0RF Rx Instructions: 10 mg BID for 6 days, then 5 mg BID thereafter (6 months) cephalexin 500 mg capsule 500 mg PO QID Qty: 20 0RF oxycodone 5 mg capsule 5 mg PO BID PRN (Reason: pain) Qty: 10 0RF hydroxyzine HCl 25 mg tablet 25 mg PO QID PRN (Reason: anxiety) Qty: 30 0RF propranolol 10 mg tablet 10 mg PO TID PRN (Reason: tachycardia) Qty: 30 0RF Referrals: Lala Jacobsen ARNP [Primary Care Provider, Family Practice] Stand Alone Forms: Patient Portal/API
[2025-01-24 08:39] LABS: Add Manual Diff / Slide Review NO; Hematocrit 43.9 % (36-46); Hemoglobin 14.8 g/dL (12.0-16.0); Lymphocytes Absolute Auto 2000 /uL (1100-4500); Mean Corpuscular HGB Conc 33.8 % (30-36); Mean Corpuscular Hemoglobin 31.9 PG (26-34); Mean Corpuscular Volume 94.4 fL (80-100); Platelet Count 364 X10^3/uL (150-400)
[2025-01-24 08:45] LABS: Alanine Aminotransferase 13 IU/L (<35); Albumin 4.8 g/dL (3.5-5.0); Albumin Globulin Ratio 1.4 (1.0-2.8); Alkaline Phosphatase 54 U/L (38-126); Blood Urea Nitrogen 13 mg/dL (7-17); Calcium 9.5 mg/dL (8.4-10.2); Carbon Dioxide 27 mmol/L (22-32); Chloride 99 mmol/L (98-107); Estimated Glomerular Filt Rate > 60 mL/min (>60); Globulin 3.5 g/dL (1.7-4.1); Glucose 97 mg/dL (70-99); HEMOLYSIS 17 (0-50); Lactate (Lactic Acid) 0.6 mmol/L (0.7-2.1); Potassium 4.1 mmol/L (3.4-5.1); Sodium 136 mmol/L (137-145); Total Protein 8.3 g/dL (6.3-8.2)
[2025-01-24 09:12] VITALS: PULSE 104; O2SAT 99
[2025-01-24] MEDS: ONDANSETRON 4 MG/2 ML INJ IV (09:29)
[2025-01-24 09:30] VITALS: PULSE 101; O2SAT 100
[2025-01-24] MEDS: cefTRIAXone 2,000 MG in SODIUM CHLORIDE 0.9% 100 ML 200 MG IV (09:30)
[2025-01-24 09:37] VITALS: BP 106/70; PULSE 98; RESP 10; O2SAT 99
[2025-01-24 10:00] VITALS: BP 92/72; PULSE 109; RESP 20; O2SAT 99
[2025-01-24 10:58] VITALS: PULSE 98; RESP 16; TEMP 36.8; O2SAT 99
== END 2025-01-24 10:58 | disposition home or self-care (01) ==
PROVIDERS: Emergency Provider Emergency Medicine; PCP Registered Nurse
DX: N30.01 Acute cystitis with hematuria (principal); R10.9 Unspecified abdominal pain; Z86.711 Personal history of pulmonary embolism
CPT/HCPCS: 36415; 74177; 80053; 81001; 81025; 83605; 85025; 87040; 87077; 87086; 87186; 96365; 96375; 99283; 99284; J0696; J1171; J2405; Q9967